=== PATIENT | female | born 1940 | race African-American/Black ===

== ENCOUNTER 2017-06-12 07:06 | Emergency (ER) | payer OTHER ==
[~2017-06-12] VITALS: Ht 165.1 cm; Wt 69.2 kg
[~2017-06-12 07:06] MED LIST: ACAR50TA11 PO; ALPR0.5T6 PO; AMLO10TA2 PO; AMLO5TAB2 PO; AMOX1TAB12 PO; ATOR10TA9 PO; ATOR20TA PO; CARV6.2512 PO; CEFD300C37 PO; CETI10TA24 PO; CYAN10008 PO; DIGO125T PO; DOXY-168 PO; ERGO500017 PO; FAMO10TA77 PO; FERR325T20 PO; FLUTICASONE; FURO20TA3 PO; GLIP5TAB10 PO; HYDR-3138 PO; HYDR25CA PO; HYDR25TA6 PO; INDO25CA PO; LISI40TA PO; LOSA50TA2 PO; METF850T2 PO; METH4TAB PO; METO25TA35 PO; PRED20TA PO; PROAIR; QVAR 40MCG; RANI150T4 PO; SERT50TA5 PO
[2017-06-12] MEDS ORDERED: DIGO125T PO (07:55)
[2017-06-12] MEDS ORDERED: METO25TA35 PO (07:55)
[2017-06-12] MEDS ORDERED: DONE5TAB7 PO (07:55)
[2017-06-12] MEDS ORDERED: FURO20TA3 PO (07:55)
[2017-06-12 08:30] LABS: HEMATOCRIT 32.6 % (34.6-47.8); HEMOGLOBIN 10.6 g/dL (11.7-16.4); WHITE BLOOD COUNT 7.4 x10^3/uL (3.4-10)
[2017-06-12 08:38] LABS: BLOOD UREA NITROGEN 12 mg/dL (7-18)
[2017-06-12 09:27] VITALS: BP 188/102
== END 2017-06-12 09:41 | disposition home or self-care (01) ==
LOC: ED 09:16
DX: J20.9 Acute bronchitis, unspecified (principal); J44.9 Chronic obstructive pulmonary disease, unspecified; K21.9 Gastro-esophageal reflux disease without esophagitis; E11.9 Type 2 diabetes mellitus without complications; I10 Essential (primary) hypertension; E78.5 Hyperlipidemia, unspecified
CPT/HCPCS: 36415; 71020; 80048; 82040; 83605; 83880; 84145; 85025; 93005; 99285

== ENCOUNTER 2018-06-10 16:02 | Inpatient (IN) | payer OTHER ==
[~2018-06-10] VITALS: Ht 175.3 cm; Wt 68.4 kg
[~2018-06-10 16:02] MED LIST changes: +ALLO100T30 PO; +ALPR0.254 PO; +ASPI-496 PO; +CARV25TA12 PO; +CARV6.252 PO; +CYAN100072 PO; -CYAN10008 PO; +DONE5TAB7 PO; -DOXY-168 PO; +DOXY100T10 PO; +FAMO20TA7 PO; +FERR325T18 PO; -FERR325T20 PO; -HYDR-3138 PO; +HYDR-3237 PO; +HYDR-3240 PO; +HYDR-3343 PO; -INDO25CA PO; +INDO25CA5 PO; +ISOS20TA58 PO; +LOSA50TA6 PO; +NITR0.4T SL
[2018-06-10] MEDS ORDERED: SODIUM CHLORIDE 0.9% 1,000 ML IV ONE (16:21)
[2018-06-10 16:30] LABS: BASOPHILS # (AUTO) 0.01 x10^3/uL (0-0.1); BASOPHILS % (AUTO) 0 % (0-1); EOSINOPHILS # (AUTO) 0.16 x10^3/uL (0-0.4); EOSINOPHILS % (AUTO) 2 % (1-7); LYMPHOCYTES # (AUTO) 1.32 x10^3/uL (1-3.4); LYMPHOCYTES % (AUTO) 18 % (22-44); MD NO; MEAN CORPUSCULAR HEMOGLOBIN 30.5 pg (27.0-34.8); MEAN CORPUSCULAR HGB CONC 35.1 g/dL (32.4-35.8); MEAN CORPUSCULAR VOLUME 87.1 fL (80-100); MEAN PLATELET VOLUME 6.7 fL (7.4-10.4); MONOCYTES # (AUTO) 0.56 x10^3/uL (0.2-0.8); MONOCYTES % (AUTO) 8 % (2-9); NEUTROPHILS % (AUTO) 73 % (42-75); PLATELET COUNT 417 x10^3/uL (130-400); RED BLOOD COUNT 3.93 x10^6/uL (3.82-5.3); RED CELL DISTRIBUTION WIDTH 14.2 % (9.6-15.2)
[2018-06-10] MEDS ORDERED: SODIUM CHLORIDE FLUSH 10ML SYR IVF ONE (16:30)
[2018-06-10 16:41] LABS: ALANINE AMINOTRANSFERASE 20 U/L (12-78); ALBUMIN 3.2 g/dL (3.4-5.0); ANION GAP 8 mmol/L (5-15); CALCIUM 8.9 mg/dL (8.5-10.1); CHLORIDE 108 mmol/L (98-107); CREATININE 1.97 mg/dL (0.55-1.02)
[2018-06-10 16:43] LABS: ALKALINE PHOSPHATASE 116 U/L (45-117); BILIRUBIN,TOTAL 0.7 mg/dL (0.2-1.0); TOTAL PROTEIN 7.6 g/dL (6.4-8.2)
[2018-06-10 16:49] LABS: TROPONIN I < 0.015 ng/mL (0.000-0.045)
[2018-06-10 17:17] LABS: MICROSCOPIC INDICATED
[2018-06-10] MEDS ORDERED: DICL100G19 TP (17:19)
[2018-06-10] MEDS ORDERED: POTA99TA24 PO (17:19)
[2018-06-10] MEDS ORDERED: SERT100T5 PO (17:19)
[2018-06-10] MEDS ORDERED: ONDA4TAB13 SL (17:19)
[2018-06-10] MEDS ORDERED: CYAN100014 PO (17:19)
[2018-06-10] MEDS ORDERED: TIOT18CA INH (17:19)
[2018-06-10 17:20] LABS: CULTURE INDICATED? YES
[2018-06-10] MEDS ORDERED: CEFTRIAXONE PMX 1GM/50ML 50 ML ONE (18:16)
[2018-06-10] MEDS ORDERED: CEFTRIAXONE 1,000 MG in SODIUM CHLORIDE 0.9% 50 ML IV ONE (18:30)
[2018-06-10] MEDS ORDERED: POLYETHYLENE GLYCOL 17 GM PACKET PO PRN (19:00)
[2018-06-10] MEDS ORDERED: BISACODYL 10 MG SUPP PR PRN (19:00)
[2018-06-10] MEDS ORDERED: ONDANSETRON 2MG/ML, 2ML IVPush PRN (19:00)
[2018-06-10 19:56] VITALS: BP 202/82
[2018-06-10] MEDS: HEPARIN 5,000 UNITS/ML, 1ML SQ SCH (20:10)
[2018-06-10] MEDS: FAMOTIDINE 20 MG TABLET PO SCH (20:10)
[2018-06-10] MEDS: POTASSIUM CHLORIDE 20 MEQ TAB.ER.PRT PO SCH (20:11)
[2018-06-10] MEDS: LOSARTAN 50MG TABLET PO SCH (20:11)
[2018-06-10] MEDS: ATORVASTATIN 10 MG TABLET PO SCH (20:11)
[2018-06-10] MEDS: AMLODIPINE 5 MG TABLET PO SCH (20:11)
[2018-06-10] MEDS: CARVEDILOL 25 MG TABLET PO SCH (20:11)
[2018-06-10] MEDS: SODIUM CHLORIDE FLUSH 10ML SYR IVF SCH (20:14)
[2018-06-10 20:44] LABS: HEMOGLOBIN A1C 7.2 % (4.2-6.3)
[2018-06-10 21:45] VITALS: BP 170/78
[2018-06-11] VITALS (8 sets, daily range): BP systolic 162–199; BP diastolic 65–89
[2018-06-11] MEDS: hydrALAzine 20 MG/ML, 1ML IV PRN (00:23)
[2018-06-11 06:03] LABS: ALANINE AMINOTRANSFERASE 19 U/L (12-78); ALBUMIN 2.9 g/dL (3.4-5.0); ANION GAP 6 mmol/L (5-15); CHLORIDE 111 mmol/L (98-107); CREATININE 1.84 mg/dL (0.55-1.02)
[2018-06-11 06:04] LABS: ALKALINE PHOSPHATASE 117 U/L (45-117); BILIRUBIN,TOTAL 0.6 mg/dL (0.2-1.0); TOTAL PROTEIN 7.1 g/dL (6.4-8.2)
[2018-06-11 06:12] LABS: BASOPHILS # (AUTO) 0.02 x10^3/uL (0-0.1); BASOPHILS % (AUTO) 0 % (0-1); EOSINOPHILS # (AUTO) 0.14 x10^3/uL (0-0.4); EOSINOPHILS % (AUTO) 2 % (1-7); LYMPHOCYTES # (AUTO) 1.33 x10^3/uL (1-3.4); LYMPHOCYTES % (AUTO) 16 % (22-44); MD NO; MEAN CORPUSCULAR HGB CONC 34.3 g/dL (32.4-35.8); MEAN CORPUSCULAR VOLUME 87.6 fL (80-100); MEAN PLATELET VOLUME 7.3 fL (7.4-10.4); MONOCYTES # (AUTO) 0.69 x10^3/uL (0.2-0.8); MONOCYTES % (AUTO) 8 % (2-9); NEUTROPHILS # (AUTO) 6.22 x10^3/uL (1.8-6.8); NEUTROPHILS % (AUTO) 74 % (42-75); PLATELET COUNT 358 x10^3/uL (130-400); RED BLOOD COUNT 3.64 x10^6/uL (3.82-5.3); RED CELL DISTRIBUTION WIDTH 14.1 % (9.6-15.2)
[2018-06-11] MEDS: FAMOTIDINE 20 MG TABLET PO SCH (08:22)
[2018-06-11] MEDS: DIGOXIN 0.125 MG TABLET PO SCH (08:22)
[2018-06-11] MEDS: CARVEDILOL 25 MG TABLET PO SCH ×2 (08:23→20:15)
[2018-06-11] MEDS: DONEPEZIL 5 MG TABLET PO SCH (08:23)
[2018-06-11] MEDS: FUROSEMIDE 20 MG TABLET PO SCH (08:23)
[2018-06-11] MEDS: AMLODIPINE 5 MG TABLET PO SCH ×2 (08:23→20:15)
[2018-06-11] MEDS: ASPIRIN 81 MG TABLET EC PO SCH (08:23)
[2018-06-11] MEDS: CYANOCOBALAMIN 1,000 MCG TABLET PO SCH (08:23)
[2018-06-11] MEDS: HEPARIN 5,000 UNITS/ML, 1ML SQ SCH ×2 (08:24→16:31)
[2018-06-11] MEDS: LOSARTAN 50MG TABLET PO SCH ×2 (08:39→20:15)
[2018-06-11] MEDS: SERTRALINE 100MG TABLET PO SCH (08:39)
[2018-06-11] MEDS: SENNA/DOCUSATE TABLET PO SCH (08:39)
[2018-06-11] MEDS: POTASSIUM CHLORIDE 20 MEQ TAB.ER.PRT PO SCH ×2 (08:39→20:15)
[2018-06-11] MEDS: SODIUM CHLORIDE FLUSH 10ML SYR IVF SCH ×2 (08:40→20:16)
[2018-06-11 09:12] LABS: MICROSCOPIC INDICATED
[2018-06-11] MEDS: SODIUM CHLORIDE 0.9% 1,000 ML IV SCH (09:56)
[2018-06-11] MEDS: IPRATROPIUM 0.5 MG/2.5 ML INHA NPPB SCH ×2 (10:18→15:00)
[2018-06-11 11:14] LABS: CULTURE INDICATED? NO
[2018-06-11] MEDS: INSULIN LISPRO 100 UNITS/ML, PEN SQ-INSULIN SCH ×3 (12:15→20:16)
[2018-06-11] MEDS: CEFTRIAXONE 1,000 MG in SODIUM CHLORIDE 0.9% 50 ML IV SCH (18:30)
[2018-06-11] MEDS: ATORVASTATIN 10 MG TABLET PO SCH (20:15)
[2018-06-11] MEDS ORDERED: HALOPERIDOL 5 MG TABLET PO PRN (23:00)
[2018-06-12] MEDS: SODIUM CHLORIDE 0.9% 1,000 ML IV SCH (00:03)
[2018-06-12] MEDS: HEPARIN 5,000 UNITS/ML, 1ML SQ SCH ×3 (02:00→16:50)
[2018-06-12 03:00] VITALS: BP 162/81
[2018-06-12 03:30] VITALS: BP 164/74
[2018-06-12 05:54] LABS: ALBUMIN 2.7 g/dL (3.4-5.0); ANION GAP 9 mmol/L (5-15); CALCIUM 8.5 mg/dL (8.5-10.1); CHLORIDE 110 mmol/L (98-107)
[2018-06-12 05:57] LABS: CREATININE 1.72 mg/dL (0.55-1.02)
[2018-06-12] MEDS ORDERED: ALBUTEROL/IPRATROPIUM 2.5MG/0.5MG, 3 ML NPPB PRN (06:00)
[2018-06-12 06:43] VITALS: BP 196/83
[2018-06-12] MEDS: INSULIN LISPRO 100 UNITS/ML, PEN SQ-INSULIN SCH ×4 (07:00→20:44)
[2018-06-12] MEDS: ACETAMINOPHEN 325 MG TABLET PO PRN ×2 (07:56→19:36)
[2018-06-12] MEDS: CYANOCOBALAMIN 1,000 MCG TABLET PO SCH (07:57)
[2018-06-12] MEDS: SODIUM CHLORIDE FLUSH 10ML SYR IVF SCH ×2 (07:57→19:11)
[2018-06-12] MEDS: DIGOXIN 0.125 MG TABLET PO SCH (07:57)
[2018-06-12] MEDS: DONEPEZIL 5 MG TABLET PO SCH (07:57)
[2018-06-12] MEDS: POTASSIUM CHLORIDE 20 MEQ TAB.ER.PRT PO SCH ×2 (07:58→20:12)
[2018-06-12] MEDS: AMLODIPINE 5 MG TABLET PO SCH ×2 (07:58→20:13)
[2018-06-12] MEDS: FUROSEMIDE 20 MG TABLET PO SCH (07:58)
[2018-06-12] MEDS: CARVEDILOL 25 MG TABLET PO SCH ×2 (07:58→20:13)
[2018-06-12] MEDS: ASPIRIN 81 MG TABLET EC PO SCH (07:58)
[2018-06-12] MEDS: FAMOTIDINE 20 MG TABLET PO SCH (07:58)
[2018-06-12] MEDS: SENNA/DOCUSATE TABLET PO SCH (07:59)
[2018-06-12] MEDS: SERTRALINE 100MG TABLET PO SCH (07:59)
[2018-06-12] MEDS: LOSARTAN 50MG TABLET PO SCH ×2 (07:59→20:12)
[2018-06-12 08:12] VITALS: BP 186/76
[2018-06-12] MEDS ORDERED: MAGNESIUM SULFATE PMX 2GM/50ML 50 ML IV ONE (08:30)
[2018-06-12] MEDS: SODIUM BICARBONATE 8.4% 100 MEQ in DEXTROSE 5% 1,000 ML IV SCH (10:28)
[2018-06-12 12:02] VITALS: BP 155/58
[2018-06-12] MEDS: CEFTRIAXONE 1,000 MG in SODIUM CHLORIDE 0.9% 50 ML IV SCH (18:01)
[2018-06-12 18:29] VITALS: BP 177/63
[2018-06-12] MEDS: ATORVASTATIN 10 MG TABLET PO SCH (20:12)
[2018-06-13] MEDS: hydrALAzine 20 MG/ML, 1ML IV PRN (00:47)
[2018-06-13 01:06] VITALS: BP 199/84
[2018-06-13] MEDS: SODIUM BICARBONATE 8.4% 100 MEQ in DEXTROSE 5% 1,000 ML IV SCH (03:45)
[2018-06-13] MEDS: HEPARIN 5,000 UNITS/ML, 1ML SQ SCH ×3 (05:21→12:57)
[2018-06-13 06:32] VITALS: BP 171/74
[2018-06-13] MEDS: INSULIN LISPRO 100 UNITS/ML, PEN SQ-INSULIN SCH ×3 (07:45→15:32)
[2018-06-13] MEDS: AMLODIPINE 5 MG TABLET PO SCH (07:46)
[2018-06-13] MEDS: SODIUM CHLORIDE FLUSH 10ML SYR IVF SCH (07:46)
[2018-06-13] MEDS: CYANOCOBALAMIN 1,000 MCG TABLET PO SCH (07:46)
[2018-06-13] MEDS: DONEPEZIL 5 MG TABLET PO SCH (07:46)
[2018-06-13] MEDS: ASPIRIN 81 MG TABLET EC PO SCH (07:46)
[2018-06-13] MEDS: FAMOTIDINE 20 MG TABLET PO SCH (07:46)
[2018-06-13] MEDS: LOSARTAN 50MG TABLET PO SCH (07:47)
[2018-06-13] MEDS: DIGOXIN 0.125 MG TABLET PO SCH (07:47)
[2018-06-13] MEDS: SENNA/DOCUSATE TABLET PO SCH (07:47)
[2018-06-13] MEDS: SERTRALINE 100MG TABLET PO SCH (07:47)
[2018-06-13] MEDS: FUROSEMIDE 20 MG TABLET PO SCH (07:47)
[2018-06-13] MEDS: CARVEDILOL 25 MG TABLET PO SCH (07:47)
[2018-06-13] MEDS: POTASSIUM CHLORIDE 20 MEQ TAB.ER.PRT PO SCH (07:47)
[2018-06-13 08:41] LABS: BASOPHILS # (AUTO) 0.01 x10^3/uL (0-0.1); BASOPHILS % (AUTO) 0 % (0-1); EOSINOPHILS # (AUTO) 0.07 x10^3/uL (0-0.4); EOSINOPHILS % (AUTO) 1 % (1-7); LYMPHOCYTES # (AUTO) 0.97 x10^3/uL (1-3.4); LYMPHOCYTES % (AUTO) 13 % (22-44); MD NO; MEAN CORPUSCULAR HEMOGLOBIN 29.3 pg (27.0-34.8); MEAN CORPUSCULAR HGB CONC 33.8 g/dL (32.4-35.8); MEAN CORPUSCULAR VOLUME 86.8 fL (80-100); MEAN PLATELET VOLUME 6.7 fL (7.4-10.4); MONOCYTES # (AUTO) 0.48 x10^3/uL (0.2-0.8); MONOCYTES % (AUTO) 7 % (2-9); NEUTROPHILS # (AUTO) 5.95 x10^3/uL (1.8-6.8); NEUTROPHILS % (AUTO) 80 % (42-75); PLATELET COUNT 387 x10^3/uL (130-400); RED BLOOD COUNT 3.84 x10^6/uL (3.82-5.3)
[2018-06-13 08:52] LABS: ANION GAP 8 mmol/L (5-15); CALCIUM 8.8 mg/dL (8.5-10.1); CHLORIDE 103 mmol/L (98-107); CREATININE 1.89 mg/dL (0.55-1.02)
[2018-06-13 12:25] VITALS: BP 165/75
[2018-06-13] MEDS ORDERED: PROPRANOLOL 40 MG TABLET PO SCH (12:30)
[2018-06-13] MEDS ORDERED: PROPRANOLOL 20 MG TABLET ONE (12:44)
== END 2018-06-13 15:43 | disposition home or self-care (01) | DRG 947 ==
LOC: ED 17:47 → EDIP 18:09 → 3NE 19:25 → DCLOUNGE 06-13 15:28
PROVIDERS: ADMIT Hospitalist; ATTEND Hospitalist
PROC: 0T9B70Z Drainage of Bladder with Drainage Device, Via Natural or Artificial Opening (ICD-10-PCS; principal; 2018-06-10)
DX: R53.1 Weakness (principal); G92 Toxic encephalopathy; E44.1 Mild protein-calorie malnutrition; I50.32 Chronic diastolic (congestive) heart failure; R62.7 Adult failure to thrive; D47.3 Essential (hemorrhagic) thrombocythemia; F03.90 Unspecified dementia, unspecified severity, without behavioral disturbance, psychotic disturbance, mood disturbance, and anxiety; E11.21 Type 2 diabetes mellitus with diabetic nephropathy; E11.42 Type 2 diabetes mellitus with diabetic polyneuropathy; D57.3 Sickle-cell trait; E55.9 Vitamin D deficiency, unspecified; E78.5 Hyperlipidemia, unspecified; F41.9 Anxiety disorder, unspecified; I11.0 Hypertensive heart disease with heart failure; J44.9 Chronic obstructive pulmonary disease, unspecified; K21.9 Gastro-esophageal reflux disease without esophagitis; M10.9 Gout, unspecified; Z66 Do not resuscitate; Z88.5 Allergy status to narcotic agent; Z88.6 Allergy status to analgesic agent; Z91.011 Allergy to milk products; Z91.013 Allergy to seafood; Z79.82 Long term (current) use of aspirin; Z79.899 Other long term (current) drug therapy; Z82.3 Family history of stroke; Z68.22 Body mass index [BMI] 22.0-22.9, adult
CPT/HCPCS: 36415; 71045; 80048; 80053; 80162; 81001; 82040; 82962; 83036; 83735; 84100; 84484; 85025; 87086; 93005; 96374; 99285; J0696; J1644; J7070; 92523-GN; J0360; J1815; J3475; J7030

== ENCOUNTER 2018-09-21 12:26 | Inpatient (IN) | payer OTHER ==
[~2018-09-21] VITALS: Ht 165.1 cm; Wt 64.3 kg
[~2018-09-21 12:26] MED LIST changes: +AMLO-150 PO; -AMLO10TA2 PO; +AMLO10TA6 PO; -AMLO5TAB2 PO; +ATOR10TA PO; +CYAN100014 PO; +DICL100G19 TP; +FAMO-79 PO; -LOSA50TA6 PO; +LOSA50TA7 PO; +METF850T10 PO; -METF850T2 PO; +ONDA4TAB13 SL; +POTA20PA25 PO; +POTA99TA24 PO; +SERT100T5 PO; +TIOT18CA INH
[2018-09-21] MEDS ORDERED: ALPR0.5T5 PO (12:56)
[2018-09-21] MEDS ORDERED: FURO20TA3 PO (12:56)
[2018-09-21] MEDS ORDERED: AMLODIPINE 5 MG TABLET PO ONE (13:00)
[2018-09-21] MEDS ORDERED: CARV12.52 PO (13:05)
[2018-09-21] MEDS ORDERED: AMLODIPINE 5 MG TABLET ONE (13:11)
[2018-09-21 13:20] LABS: ALANINE AMINOTRANSFERASE 16 U/L (12-78); ALBUMIN 3.3 g/dL (3.4-5.0); ANION GAP 7 mmol/L (5-15); CALCIUM 8.7 mg/dL (8.5-10.1); CHLORIDE 105 mmol/L (98-107)
[2018-09-21 13:27] LABS: ALKALINE PHOSPHATASE 124 U/L (45-117); BILIRUBIN,TOTAL 0.6 mg/dL (0.2-1.0); CREATININE 2.31 mg/dL (0.55-1.02); TOTAL PROTEIN 7.5 g/dL (6.4-8.2)
[2018-09-21 13:31] LABS: MEAN CORPUSCULAR HEMOGLOBIN 28.1 pg (27.0-34.8); MEAN CORPUSCULAR HGB CONC 33.3 g/dL (32.4-35.8); MEAN CORPUSCULAR VOLUME 84.2 fL (80-100); MEAN PLATELET VOLUME 6.7 fL (7.4-10.4); PLATELET COUNT 399 x10^3/uL (130-400); RED BLOOD COUNT 4.11 x10^6/uL (3.82-5.3); RED CELL DISTRIBUTION WIDTH 15.8 % (9.6-15.2)
[2018-09-21 13:42] LABS: BASOPHILS % (AUTO) 0 % (0-1); EOSINOPHILS % (AUTO) 2 % (1-7); LYMPHOCYTES # (AUTO) 1.22 x10^3/uL (1-3.4); LYMPHOCYTES % (AUTO) 22 % (22-44); MD SCAN; MONOCYTES % (AUTO) 7 % (2-9); NEUTROPHILS # (AUTO) 3.77 x10^3/uL (1.8-6.8); NEUTROPHILS % (AUTO) 69 % (42-75)
[2018-09-21 14:10] LABS: MICROSCOPIC INDICATED
[2018-09-21 14:33] LABS: CULTURE INDICATED? NO
[2018-09-21] MEDS ORDERED: SODIUM CHLORIDE 0.9% 1,000 ML IV SCH (16:45)
[2018-09-21] MEDS ORDERED: ONDANSETRON ODT 4 MG PO PRN (17:00)
[2018-09-21] MEDS ORDERED: ONDANSETRON 2MG/ML, 2ML IVPush PRN (17:00)
[2018-09-21] MEDS ORDERED: ONDANSETRON ODT 4 MG SL PRN (17:00)
[2018-09-21 17:03] LABS: CREATININE,URINE RANDOM 97.1 mg/dL
[2018-09-21 17:23] LABS: HEMOGLOBIN A1C 6.6 % (4.2-6.3)
[2018-09-21 17:54] VITALS: BP 200/74
[2018-09-21] MEDS ORDERED: IPRATROPIUM 0.5 MG/2.5 ML INHA NPPB SCH (18:30)
[2018-09-21] MEDS: METHOCARBAMOL 500 MG TABLET PO PRN (18:34)
[2018-09-21] MEDS: hydrALAzine 20 MG/ML, 1ML IV PRN (18:34)
[2018-09-21 19:21] VITALS: BP 170/51
[2018-09-21] MEDS: DICLOFENAC SODIUM 2 GM TP SCH (19:51)
[2018-09-21] MEDS: FAMOTIDINE 20 MG TABLET PO SCH (20:05)
[2018-09-21] MEDS: ATORVASTATIN 10 MG TABLET PO SCH (20:05)
[2018-09-21] MEDS: CARVEDILOL 12.5 MG TABLET HOMEMEDPO SCH (20:05)
[2018-09-21] MEDS: IPRATROPIUM 0.5 MG/2.5 ML INHA NPPB SCH (21:36)
[2018-09-21] MEDS: HEPARIN 5,000 UNITS/ML, 1ML SQ SCH (21:50)
[2018-09-22 01:18] VITALS: BP 176/84
[2018-09-22] MEDS: IPRATROPIUM 0.5 MG/2.5 ML INHA NPPB SCH ×4 (02:16→21:00)
[2018-09-22] MEDS: METHOCARBAMOL 500 MG TABLET PO PRN (03:06)
[2018-09-22 04:41] LABS: BASOPHILS # (AUTO) 0.01 x10^3/uL (0-0.1); BASOPHILS % (AUTO) 0 % (0-1); EOSINOPHILS # (AUTO) 0.13 x10^3/uL (0-0.4); EOSINOPHILS % (AUTO) 2 % (1-7); LYMPHOCYTES # (AUTO) 1.41 x10^3/uL (1-3.4); LYMPHOCYTES % (AUTO) 23 % (22-44); MD NO; MEAN CORPUSCULAR HEMOGLOBIN 28.2 pg (27.0-34.8); MEAN CORPUSCULAR HGB CONC 32.7 g/dL (32.4-35.8); MEAN CORPUSCULAR VOLUME 86.3 fL (80-100); MEAN PLATELET VOLUME 6.9 fL (7.4-10.4); MONOCYTES # (AUTO) 0.46 x10^3/uL (0.2-0.8); MONOCYTES % (AUTO) 7 % (2-9); NEUTROPHILS # (AUTO) 4.25 x10^3/uL (1.8-6.8); NEUTROPHILS % (AUTO) 68 % (42-75); PLATELET COUNT 356 x10^3/uL (130-400); RED BLOOD COUNT 4.04 x10^6/uL (3.82-5.3)
[2018-09-22 04:46] LABS: ALBUMIN 3.1 g/dL (3.4-5.0); ANION GAP 9 mmol/L (5-15); CALCIUM 8.1 mg/dL (8.5-10.1); CHLORIDE 107 mmol/L (98-107)
[2018-09-22 04:55] LABS: ALANINE AMINOTRANSFERASE 15 U/L (12-78); ALKALINE PHOSPHATASE 104 U/L (45-117); BILIRUBIN,TOTAL 0.7 mg/dL (0.2-1.0); CHOL/HDL RATIO 4.4; CHOLESTEROL, TOTAL 155 mg/dL (140-239); CREATININE 2.15 mg/dL (0.55-1.02); HDL CHOL % 23 % (28-40); HDL CHOLESTEROL (DIRECT) 35 mg/dL (40-60); LDL CHOLESTEROL,CALCULATED 65 mg/dL (54-169); LDL/HDL RATIO 1.9 (0.5-3.0); TOTAL PROTEIN 6.9 g/dL (6.4-8.2); TRIGLYCERIDES 274 mg/dL (50-200); VLDL CHOLESTEROL 55 mg/dL (0-25)
[2018-09-22] MEDS: HEPARIN 5,000 UNITS/ML, 1ML SQ SCH ×3 (06:05→19:43)
[2018-09-22 07:06] VITALS: BP 187/78
[2018-09-22] MEDS: POTASSIUM CHLORIDE 20 MEQ TAB.ER.PRT PO SCH (07:56)
[2018-09-22] MEDS: DONEPEZIL 5 MG TABLET PO SCH (07:57)
[2018-09-22] MEDS: CYANOCOBALAMIN 1,000 MCG TABLET PO SCH (07:57)
[2018-09-22] MEDS: CARVEDILOL 12.5 MG TABLET HOMEMEDPO SCH ×2 (07:57→19:42)
[2018-09-22] MEDS: DIGOXIN 0.125 MG TABLET PO SCH (07:57)
[2018-09-22] MEDS: AMLODIPINE 5 MG TABLET PO SCH (07:57)
[2018-09-22] MEDS: ASPIRIN 81 MG TABLET EC PO SCH (07:57)
[2018-09-22] MEDS: SERTRALINE 100MG TABLET PO SCH (07:57)
[2018-09-22] MEDS: FAMOTIDINE 20 MG TABLET PO SCH (07:58)
[2018-09-22] MEDS ORDERED: MAGNESIUM SULFATE PMX 2GM/50ML 50 ML IV ONE (09:00)
[2018-09-22] MEDS: DICLOFENAC SODIUM 2 GM TP SCH ×3 (09:00→19:55)
[2018-09-22 15:54] VITALS: BP 164/78
[2018-09-22 18:49] VITALS: BP 175/75
[2018-09-22] MEDS: ATORVASTATIN 10 MG TABLET PO SCH (19:41)
[2018-09-23 01:59] VITALS: BP 193/76
[2018-09-23] MEDS: IPRATROPIUM 0.5 MG/2.5 ML INHA NPPB SCH ×2 (02:16→09:45)
[2018-09-23 04:58] VITALS: BP 188/79
[2018-09-23] MEDS: hydrALAzine 20 MG/ML, 1ML IV PRN (04:59)
[2018-09-23] MEDS: HEPARIN 5,000 UNITS/ML, 1ML SQ SCH ×3 (05:00→20:11)
[2018-09-23] MEDS: METHOCARBAMOL 500 MG TABLET PO PRN (05:00)
[2018-09-23 05:58] VITALS: BP 169/73
[2018-09-23 07:05] VITALS: BP 175/66
[2018-09-23] MEDS: DONEPEZIL 5 MG TABLET PO SCH (08:02)
[2018-09-23] MEDS: CALCIUM/VITAMIN D3 250-125 TABLET PO SCH (08:02)
[2018-09-23] MEDS: DIGOXIN 0.125 MG TABLET PO SCH (08:02)
[2018-09-23] MEDS: FAMOTIDINE 20 MG TABLET PO SCH (08:02)
[2018-09-23] MEDS: CYANOCOBALAMIN 1,000 MCG TABLET PO SCH (08:02)
[2018-09-23] MEDS: POTASSIUM CHLORIDE 20 MEQ TAB.ER.PRT PO SCH (08:02)
[2018-09-23] MEDS: CARVEDILOL 12.5 MG TABLET HOMEMEDPO SCH ×2 (08:02→20:11)
[2018-09-23] MEDS: SERTRALINE 100MG TABLET PO SCH (08:02)
[2018-09-23] MEDS: DICLOFENAC SODIUM 2 GM TP SCH ×3 (08:03→20:12)
[2018-09-23] MEDS: AMLODIPINE 5 MG TABLET PO SCH (08:03)
[2018-09-23] MEDS: ASPIRIN 81 MG TABLET EC PO SCH (08:03)
[2018-09-23] MEDS: LOSARTAN 50MG TABLET PO SCH (08:03)
[2018-09-23] MEDS ORDERED: FURO20TA3 PO ×2 (12:49)
[2018-09-23 13:10] VITALS: BP 172/68
[2018-09-23 19:14] VITALS: BP 164/74
[2018-09-23] MEDS: ATORVASTATIN 10 MG TABLET PO SCH (20:11)
[2018-09-23] MEDS: ACETAMINOPHEN 325 MG TABLET PO PRN (20:16)
[2018-09-24 00:56] VITALS: BP 186/71
[2018-09-24] MEDS: hydrALAzine 20 MG/ML, 1ML IV PRN (01:08)
[2018-09-24 02:45] VITALS: BP 168/69
[2018-09-24] MEDS: HEPARIN 5,000 UNITS/ML, 1ML SQ SCH ×3 (05:58→21:43)
[2018-09-24] MEDS: ACETAMINOPHEN 325 MG TABLET PO PRN (05:59)
[2018-09-24 07:10] VITALS: BP 173/69
[2018-09-24] MEDS: FAMOTIDINE 20 MG TABLET PO SCH (08:56)
[2018-09-24] MEDS: CARVEDILOL 12.5 MG TABLET HOMEMEDPO SCH ×2 (08:56→21:42)
[2018-09-24] MEDS: DONEPEZIL 5 MG TABLET PO SCH (08:56)
[2018-09-24] MEDS: AMLODIPINE 5 MG TABLET PO SCH (08:56)
[2018-09-24] MEDS: LOSARTAN 50MG TABLET PO SCH (08:56)
[2018-09-24] MEDS: CYANOCOBALAMIN 1,000 MCG TABLET PO SCH (08:56)
[2018-09-24] MEDS: ASPIRIN 81 MG TABLET EC PO SCH (08:56)
[2018-09-24] MEDS: SERTRALINE 100MG TABLET PO SCH (08:56)
[2018-09-24] MEDS: CALCIUM/VITAMIN D3 250-125 TABLET PO SCH (08:56)
[2018-09-24] MEDS: POTASSIUM CHLORIDE 20 MEQ TAB.ER.PRT PO SCH (08:56)
[2018-09-24] MEDS: DIGOXIN 0.125 MG TABLET PO SCH (08:57)
[2018-09-24] MEDS: DICLOFENAC SODIUM 2 GM TP SCH ×3 (08:57→21:00)
[2018-09-24 14:00] VITALS: BP 171/67
[2018-09-24 19:45] VITALS: BP 164/80
[2018-09-24] MEDS: ATORVASTATIN 10 MG TABLET PO SCH (21:42)
[2018-09-25 01:45] VITALS: BP 151/62
[2018-09-25 04:57] LABS: ANION GAP 9 mmol/L (5-15); CALCIUM 8.4 mg/dL (8.5-10.1); CHLORIDE 108 mmol/L (98-107); CREATININE 2.22 mg/dL (0.55-1.02)
[2018-09-25] MEDS: HEPARIN 5,000 UNITS/ML, 1ML SQ SCH ×3 (06:00→21:58)
[2018-09-25 06:58] VITALS: BP 163/69
[2018-09-25] MEDS: ACETAMINOPHEN 325 MG TABLET PO PRN (08:27)
[2018-09-25] MEDS: ASPIRIN 81 MG TABLET EC PO SCH (08:27)
[2018-09-25] MEDS: CALCIUM/VITAMIN D3 250-125 TABLET PO SCH (08:27)
[2018-09-25] MEDS: LOSARTAN 50MG TABLET PO SCH (08:27)
[2018-09-25] MEDS: POTASSIUM CHLORIDE 20 MEQ TAB.ER.PRT PO SCH (08:28)
[2018-09-25] MEDS: DIGOXIN 0.125 MG TABLET PO SCH (08:28)
[2018-09-25] MEDS: SERTRALINE 100MG TABLET PO SCH (08:28)
[2018-09-25] MEDS: CYANOCOBALAMIN 1,000 MCG TABLET PO SCH (08:28)
[2018-09-25] MEDS: CARVEDILOL 12.5 MG TABLET HOMEMEDPO SCH ×2 (08:28→21:58)
[2018-09-25] MEDS: DONEPEZIL 5 MG TABLET PO SCH (08:28)
[2018-09-25] MEDS: FAMOTIDINE 20 MG TABLET PO SCH (08:28)
[2018-09-25] MEDS: AMLODIPINE 5 MG TABLET PO SCH (08:28)
[2018-09-25] MEDS: DICLOFENAC SODIUM 2 GM TP SCH ×3 (08:33→21:00)
[2018-09-25] MEDS ORDERED: FUROSEMIDE 40 MG TABLET PO SCH (09:00)
[2018-09-25] MEDS ORDERED: AMLODIPINE 5 MG TABLET PO ONE (12:30)
[2018-09-25 12:35] VITALS: BP 175/98
[2018-09-25] MEDS: METHOCARBAMOL 500 MG TABLET PO PRN (15:15)
[2018-09-25 19:39] VITALS: BP 149/73
[2018-09-25] MEDS: ATORVASTATIN 10 MG TABLET PO SCH (21:58)
[2018-09-26 01:06] VITALS: BP 150/73
[2018-09-26 05:11] LABS: ANION GAP 8 mmol/L (5-15); CALCIUM 8.8 mg/dL (8.5-10.1); CHLORIDE 107 mmol/L (98-107); CREATININE 2.39 mg/dL (0.55-1.02)
[2018-09-26] MEDS: HEPARIN 5,000 UNITS/ML, 1ML SQ SCH ×2 (06:03→14:00)
[2018-09-26 07:11] VITALS: BP 163/76
[2018-09-26] MEDS ORDERED: SERTRALINE 50MG TABLET PO SCH (09:00)
[2018-09-26] MEDS: DICLOFENAC SODIUM 2 GM TP SCH ×2 (09:00→15:59)
[2018-09-26] MEDS ORDERED: AMLODIPINE 10 MG TAB PO SCH (09:00)
[2018-09-26] MEDS: POTASSIUM CHLORIDE 20 MEQ TAB.ER.PRT PO SCH (09:38)
[2018-09-26] MEDS: LOSARTAN 50MG TABLET PO SCH (09:38)
[2018-09-26] MEDS: DONEPEZIL 5 MG TABLET PO SCH (09:38)
[2018-09-26] MEDS: DIGOXIN 0.125 MG TABLET PO SCH (09:38)
[2018-09-26] MEDS: CYANOCOBALAMIN 1,000 MCG TABLET PO SCH (09:38)
[2018-09-26] MEDS: CALCIUM/VITAMIN D3 250-125 TABLET PO SCH (09:38)
[2018-09-26] MEDS: METHOCARBAMOL 500 MG TABLET PO PRN (09:39)
[2018-09-26] MEDS: CARVEDILOL 12.5 MG TABLET HOMEMEDPO SCH (09:39)
[2018-09-26] MEDS: ASPIRIN 81 MG TABLET EC PO SCH (09:39)
[2018-09-26] MEDS: FAMOTIDINE 20 MG TABLET PO SCH (09:39)
[2018-09-26 12:39] VITALS: BP 144/75
[2018-09-26] MEDS ORDERED: AMLO10TA6 PO (16:30)
[2018-09-26] MEDS ORDERED: SERT50TA5 PO (17:50)
== END 2018-09-26 17:45 | disposition home or self-care (01) | DRG 682 ==
LOC: ED 12:47 → EDIP 16:02 → 3NE 17:37
PROVIDERS: ADMIT Hospitalist; ATTEND Hospitalist
DX: N17.0 Acute kidney failure with tubular necrosis (principal); R53.2 Functional quadriplegia; I13.0 Hypertensive heart and chronic kidney disease with heart failure and stage 1 through stage 4 chronic kidney disease, or unspecified chronic kidney disease; I50.32 Chronic diastolic (congestive) heart failure; R29.6 Repeated falls; R62.7 Adult failure to thrive; I45.10 Unspecified right bundle-branch block; J44.9 Chronic obstructive pulmonary disease, unspecified; M10.9 Gout, unspecified; E11.22 Type 2 diabetes mellitus with diabetic chronic kidney disease; I05.0 Rheumatic mitral stenosis; D57.3 Sickle-cell trait; E78.5 Hyperlipidemia, unspecified; F03.90 Unspecified dementia, unspecified severity, without behavioral disturbance, psychotic disturbance, mood disturbance, and anxiety; F41.9 Anxiety disorder, unspecified; K21.9 Gastro-esophageal reflux disease without esophagitis; N18.3 Chronic kidney disease, stage 3 (moderate); N39.3 Stress incontinence (female) (male); Z82.3 Family history of stroke; Z86.73 Personal history of transient ischemic attack (TIA), and cerebral infarction without residual deficits; Z87.01 Personal history of pneumonia (recurrent); Z87.440 Personal history of urinary (tract) infections; Z79.899 Other long term (current) drug therapy; Z79.82 Long term (current) use of aspirin
CPT/HCPCS: 36415; 70450; 80048; 80053; 80061; 80162; 81001; 82436; 82570; 83036; 83735; 84100; 84133; 84156; 84300; 84443; 85025; 93005; 94640; 99285; G0378; J1644; J7644; Q0162; 92523-GN; J0360; J3475; J7030

== ENCOUNTER 2018-12-02 10:46 | Inpatient (IN) | payer MEDICARE, OTHER ==
[~2018-12-02] VITALS: Ht 165.1 cm; Wt 65.3 kg
[~2018-12-02 10:46] MED LIST changes: +ACET325T14 PO; +ALPR0.5T5 PO; -AMLO10TA6 PO; +AMLO10TA8 PO; +CARV12.52 PO; +CLON1PAT3 TD; +DOCU-131 PO; +HEPA50002 SQ; +INSU100I11 SQ-INSULIN; +LOSA50TA14 PO; -LOSA50TA7 PO; +MELA5TAB19 PO; +NIFE60TA13 PO; +ONDA4TAB13 PO; +OXYC5SOL8 PO; +PANT40TA5 PO; +QUET25TA PO; +SERT100T32 PO; -SERT100T5 PO; +SERT50TA28 PO; -SERT50TA5 PO; +SIME80TA16 PO
[2018-12-02] MEDS ORDERED: SODIUM CHLORIDE FLUSH 10ML SYR IVF ONE (11:00)
--- NOTE | 2018-12-02 11:07 | NUR ---
PT BIB BY ALEXIS LEONARD CODEN FOR HIGH POTASSIUM. PT PLACED IN ROOM AND PLACED ON BP, CARDIAC AND CONT. PULSE OXIMETER. ASSESSMENT COMPLETED. EKG DONE AND PRESENTED TO MD. ASSESSMENT COMPLETED. MD AT BEDSIDE AND ORDERS RECEIVED. CALL LIGHT IN REACH AND 2 SIDE RAILS UP.
[2018-12-02] MEDS ORDERED: SERT50TA28 PO (11:57)
[2018-12-02 12:18] LABS: ALANINE AMINOTRANSFERASE 15 U/L (12-78); ALBUMIN 3.3 g/dL (3.4-5.0); ANION GAP 7 mmol/L (5-15); CALCIUM 8.9 mg/dL (8.5-10.1); CHLORIDE 108 mmol/L (98-107); CREATININE 2.97 mg/dL (0.55-1.02)
[2018-12-02 12:19] LABS: MEAN CORPUSCULAR HEMOGLOBIN 29.9 pg (27.0-34.8); MEAN CORPUSCULAR HGB CONC 32.8 g/dL (32.4-35.8); MEAN CORPUSCULAR VOLUME 91.3 fL (80-100); MEAN PLATELET VOLUME 7.2 fL (7.4-10.4); PLATELET COUNT 515 x10^3/uL (130-400); RED BLOOD COUNT 3.33 x10^6/uL (3.82-5.3); RED CELL DISTRIBUTION WIDTH 18.4 % (9.6-15.2)
[2018-12-02 12:20] LABS: ALKALINE PHOSPHATASE 129 U/L (45-117); BILIRUBIN,TOTAL 0.4 mg/dL (0.2-1.0); TOTAL PROTEIN 7.7 g/dL (6.4-8.2)
[2018-12-02] MEDS ORDERED: SODIUM CHLORIDE 0.9%, 500ML IVBOLUS ONE (12:30)
--- NOTE | 2018-12-02 12:30 | NUR ---
PT AWAITING LAB
[2018-12-02 12:56] LABS: BASOPHILS % (AUTO) 0 % (0-1); EOSINOPHILS # (AUTO) 0.15 x10^3/uL (0-0.4); EOSINOPHILS % (AUTO) 2 % (1-7); LYMPHOCYTES # (AUTO) 1.34 x10^3/uL (1-3.4); LYMPHOCYTES % (AUTO) 19 % (22-44); MD SCAN; MONOCYTES # (AUTO) 0.57 x10^3/uL (0.2-0.8); MONOCYTES % (AUTO) 8 % (2-9); NEUTROPHILS # (AUTO) 5.11 x10^3/uL (1.8-6.8); NEUTROPHILS % (AUTO) 71 % (42-75)
--- NOTE | 2018-12-02 13:25 | NUR ---
PT PUT ON BEDPAN AND URINATED IN HURD
[2018-12-02] MEDS ORDERED: BISACODYL 10 MG SUPP PR PRN (13:30)
[2018-12-02] MEDS ORDERED: LIDODERM 5% PATCH TD PRN (13:30)
[2018-12-02] MEDS ORDERED: TRAZODONE 50MG TABLET PO PRN (13:30)
[2018-12-02] MEDS ORDERED: DOCUSATE 100 MG CAPSULE PO PRN (13:30)
[2018-12-02] MEDS ORDERED: LABETALOL 5MG/ML, 20ML IVPush PRN (13:30)
[2018-12-02] MEDS ORDERED: hydrALAzine 20 MG/ML, 1ML IVPush PRN (13:30)
[2018-12-02] MEDS ORDERED: SIMETHICONE 80 MG CHEW TAB PO PRN (13:30)
[2018-12-02] MEDS ORDERED: POLYETHYLENE GLYCOL 17 GM PACKET PO PRN (13:30)
[2018-12-02 13:33] LABS: HCT (SEDRATE) 30.4 % (34.6-47.8)
[2018-12-02 13:44] LABS: FREE T4 (FREE THYROXINE) 0.88 ng/dL (0.76-1.46); THYROID STIMULATING HORMONE 1.09 mIU/L (0.358-3.740)
--- NOTE | 2018-12-02 14:25 | NUR ---
report given to ronaldo velásquez. pt then transferred to floor .
[2018-12-02 15:11] VITALS: BP 152/63
[2018-12-02] MEDS: SODIUM CHLORIDE 0.9% 1,000 ML IV SCH (15:40)
[2018-12-02] MEDS: ONDANSETRON ODT 4 MG PO PRN (15:51)
[2018-12-02] MEDS: ERGOCALCIFEROL 50,000 UNIT CAPSULE PO SCH (15:51)
[2018-12-02] MEDS: INSULIN LISPRO 100 UNITS/ML, PEN SQ-INSULIN SCH ×2 (16:00→22:20)
[2018-12-02 18:35] VITALS: BP 143/62
[2018-12-02] MEDS: OXYcodone 5 MG/5 ML ORAL.SOL UDC PO PRN (20:00)
[2018-12-02] MEDS: ALLOPURINOL 100 MG TABLET PO SCH (21:17)
[2018-12-02] MEDS: DOCUSATE 100 MG CAPSULE PO SCH (21:17)
[2018-12-02] MEDS: MELATONIN 5 MG TABLET PO SCH (21:17)
[2018-12-02] MEDS: ATORVASTATIN 10 MG TABLET PO SCH (21:17)
[2018-12-02] MEDS: PANTOPROZOLE 40MG TABLET PO SCH (21:17)
[2018-12-02] MEDS ORDERED: cloniDINE 0.3MG PATCH TD SCH (22:00)
[2018-12-02] MEDS: CLONIDINE MC SCH ×2 (22:30→23:00)
[2018-12-02] MEDS: CARVEDILOL 25 MG TABLET PO SCH (22:30)
[2018-12-03 00:46] VITALS: BP 149/72
[2018-12-03] MEDS: SODIUM CHLORIDE 0.9% 1,000 ML IV SCH ×2 (01:57→10:10)
[2018-12-03] MEDS: OXYcodone 5 MG/5 ML ORAL.SOL UDC PO PRN (03:48)
[2018-12-03] MEDS: ONDANSETRON 4 MG TABLET PO PRN ×3 (03:48→21:19)
[2018-12-03] MEDS: PANTOPROZOLE 40MG TABLET PO SCH ×2 (06:01→21:43)
[2018-12-03] MEDS: CARVEDILOL 25 MG TABLET PO SCH ×2 (06:01→18:18)
[2018-12-03 06:49] LABS: BASOPHILS % (AUTO) 0 % (0-1); EOSINOPHILS % (AUTO) 2 % (1-7); LYMPHOCYTES # (AUTO) 1.36 x10^3/uL (1-3.4); LYMPHOCYTES % (AUTO) 26 % (22-44); MD NO; MEAN CORPUSCULAR HEMOGLOBIN 29.6 pg (27.0-34.8); MEAN CORPUSCULAR HGB CONC 32.5 g/dL (32.4-35.8); MEAN CORPUSCULAR VOLUME 91.2 fL (80-100); MEAN PLATELET VOLUME 7.5 fL (7.4-10.4); MONOCYTES # (AUTO) 0.45 x10^3/uL (0.2-0.8); MONOCYTES % (AUTO) 9 % (2-9); NEUTROPHILS # (AUTO) 3.28 x10^3/uL (1.8-6.8); NEUTROPHILS % (AUTO) 63 % (42-75); PLATELET COUNT 416 x10^3/uL (130-400); RED BLOOD COUNT 2.82 x10^6/uL (3.82-5.3); RED CELL DISTRIBUTION WIDTH 18.7 % (9.6-15.2)
[2018-12-03 06:55] LABS: CHLORIDE 111 mmol/L (98-107)
[2018-12-03 07:00] LABS: ANION GAP 8 mmol/L (5-15); CALCIUM 8.3 mg/dL (8.5-10.1); CREATININE 2.19 mg/dL (0.55-1.02)
[2018-12-03] MEDS: INSULIN LISPRO 100 UNITS/ML, PEN SQ-INSULIN SCH ×4 (07:00→21:00)
[2018-12-03] MEDS: CLONIDINE MC SCH ×2 (07:00→15:00)
[2018-12-03 07:05] VITALS: BP 156/71
[2018-12-03] MEDS ORDERED: MAGNESIUM SULFATE PMX 2GM/50ML 50 ML IV ONE (08:00)
[2018-12-03] MEDS: niFEDipine ER 60 MG TABLET.ER PO SCH (08:42)
[2018-12-03] MEDS: ASPIRIN 81 MG TABLET EC PO SCH (08:43)
[2018-12-03] MEDS: DOCUSATE 100 MG CAPSULE PO SCH ×2 (08:43→21:20)
[2018-12-03] MEDS: ALLOPURINOL 100 MG TABLET PO SCH ×2 (08:44→21:19)
[2018-12-03] MEDS: SERTRALINE 50MG TABLET PO SCH (08:44)
[2018-12-03] MEDS: CYANOCOBALAMIN 1,000 MCG TABLET PO SCH (08:44)
[2018-12-03] MEDS: AMLODIPINE 10 MG TAB PO SCH (08:44)
[2018-12-03] MEDS: DONEPEZIL 5 MG TABLET PO SCH (08:44)
[2018-12-03] MEDS: ONDANSETRON 2MG/ML, 2ML IVPush PRN (10:09)
[2018-12-03 14:25] VITALS: BP 118/62
[2018-12-03 19:06] VITALS: BP 133/59
[2018-12-03] MEDS: MELATONIN 5 MG TABLET PO SCH (21:19)
[2018-12-03] MEDS: ATORVASTATIN 10 MG TABLET PO SCH (21:19)
[2018-12-04] MEDS: OXYcodone 5 MG/5 ML ORAL.SOL UDC PO PRN ×2 (01:15→11:35)
[2018-12-04 01:21] VITALS: BP 156/62
[2018-12-04] MEDS: SODIUM CHLORIDE 0.9% 1,000 ML IV SCH ×3 (05:12→16:05)
[2018-12-04 05:22] LABS: ANION GAP 5 mmol/L (5-15); CALCIUM 8.4 mg/dL (8.5-10.1); CHLORIDE 111 mmol/L (98-107); CREATININE 2.35 mg/dL (0.55-1.02)
[2018-12-04 05:36] LABS: BASOPHILS % (AUTO) 0 % (0-1); EOSINOPHILS # (AUTO) 0.17 x10^3/uL (0-0.4); EOSINOPHILS % (AUTO) 3 % (1-7); LYMPHOCYTES # (AUTO) 1.46 x10^3/uL (1-3.4); LYMPHOCYTES % (AUTO) 25 % (22-44); MD NO; MEAN CORPUSCULAR HEMOGLOBIN 30.2 pg (27.0-34.8); MEAN CORPUSCULAR HGB CONC 32.8 g/dL (32.4-35.8); MEAN CORPUSCULAR VOLUME 92.1 fL (80-100); MEAN PLATELET VOLUME 7.4 fL (7.4-10.4); MONOCYTES # (AUTO) 0.58 x10^3/uL (0.2-0.8); MONOCYTES % (AUTO) 10 % (2-9); NEUTROPHILS # (AUTO) 3.57 x10^3/uL (1.8-6.8); NEUTROPHILS % (AUTO) 62 % (42-75); PLATELET COUNT 395 x10^3/uL (130-400); RED BLOOD COUNT 2.75 x10^6/uL (3.82-5.3); RED CELL DISTRIBUTION WIDTH 18.5 % (9.6-15.2)
[2018-12-04] MEDS: PANTOPROZOLE 40MG TABLET PO SCH ×2 (06:25→21:38)
[2018-12-04] MEDS: CARVEDILOL 25 MG TABLET PO SCH ×2 (06:25→16:58)
[2018-12-04] MEDS: INSULIN LISPRO 100 UNITS/ML, PEN SQ-INSULIN SCH ×4 (07:00→21:00)
[2018-12-04 07:05] VITALS: BP 176/68
[2018-12-04] MEDS: DONEPEZIL 5 MG TABLET PO SCH (08:02)
[2018-12-04] MEDS: DOCUSATE 100 MG CAPSULE PO SCH ×2 (08:02→21:35)
[2018-12-04] MEDS: ASPIRIN 81 MG TABLET EC PO SCH (08:02)
[2018-12-04] MEDS: niFEDipine ER 60 MG TABLET.ER PO SCH (08:02)
[2018-12-04] MEDS: CYANOCOBALAMIN 1,000 MCG TABLET PO SCH (08:03)
[2018-12-04] MEDS: AMLODIPINE 10 MG TAB PO SCH (08:03)
[2018-12-04] MEDS: ALLOPURINOL 100 MG TABLET PO SCH ×2 (08:03→21:35)
[2018-12-04] MEDS: SERTRALINE 50MG TABLET PO SCH (08:09)
[2018-12-04] MEDS ORDERED: SODIUM POLYSTYRENE SULFONATE ORAL SUSP PO ONE (12:00)
[2018-12-04 13:40] VITALS: BP 117/54
[2018-12-04] MEDS: ACETAMINOPHEN 325 MG TABLET PO PRN (15:50)
[2018-12-04 19:13] VITALS: BP 137/69
[2018-12-04] MEDS: ATORVASTATIN 10 MG TABLET PO SCH (21:35)
[2018-12-04] MEDS: MELATONIN 5 MG TABLET PO SCH (21:35)
[2018-12-05] MEDS: SODIUM CHLORIDE 0.9% 1,000 ML IV SCH ×3 (01:47→22:09)
[2018-12-05 02:18] VITALS: BP 151/54
[2018-12-05 04:42] LABS: BASOPHILS # (AUTO) 0.01 x10^3/uL (0-0.1); BASOPHILS % (AUTO) 0 % (0-1); EOSINOPHILS # (AUTO) 0.17 x10^3/uL (0-0.4); EOSINOPHILS % (AUTO) 3 % (1-7); LYMPHOCYTES % (AUTO) 21 % (22-44); MD NO; MEAN CORPUSCULAR HEMOGLOBIN 30.1 pg (27.0-34.8); MEAN CORPUSCULAR HGB CONC 33.1 g/dL (32.4-35.8); MEAN PLATELET VOLUME 7.4 fL (7.4-10.4); MONOCYTES # (AUTO) 0.48 x10^3/uL (0.2-0.8); MONOCYTES % (AUTO) 9 % (2-9); NEUTROPHILS # (AUTO) 3.83 x10^3/uL (1.8-6.8); NEUTROPHILS % (AUTO) 67 % (42-75); PLATELET COUNT 375 x10^3/uL (130-400); RED BLOOD COUNT 2.77 x10^6/uL (3.82-5.3); RED CELL DISTRIBUTION WIDTH 18.1 % (9.6-15.2)
[2018-12-05 04:56] LABS: ANION GAP 6 mmol/L (5-15); CALCIUM 8.3 mg/dL (8.5-10.1); CHLORIDE 114 mmol/L (98-107); CREATININE 2.11 mg/dL (0.55-1.02)
[2018-12-05] MEDS: CARVEDILOL 25 MG TABLET PO SCH ×2 (05:59→18:13)
[2018-12-05] MEDS: PANTOPROZOLE 40MG TABLET PO SCH ×2 (05:59→19:49)
[2018-12-05] MEDS: OXYcodone 5 MG/5 ML ORAL.SOL UDC PO PRN ×2 (05:59→11:32)
[2018-12-05 07:00] VITALS: BP 180/69
[2018-12-05] MEDS: INSULIN LISPRO 100 UNITS/ML, PEN SQ-INSULIN SCH ×4 (07:00→19:49)
[2018-12-05] MEDS: ALLOPURINOL 100 MG TABLET PO SCH ×2 (08:39→19:49)
[2018-12-05] MEDS: niFEDipine ER 60 MG TABLET.ER PO SCH (08:39)
[2018-12-05] MEDS: ASPIRIN 81 MG TABLET EC PO SCH (08:39)
[2018-12-05] MEDS: DONEPEZIL 5 MG TABLET PO SCH (08:39)
[2018-12-05] MEDS: SERTRALINE 50MG TABLET PO SCH (08:39)
[2018-12-05] MEDS: AMLODIPINE 10 MG TAB PO SCH (08:39)
[2018-12-05] MEDS: DOCUSATE 100 MG CAPSULE PO SCH ×2 (08:39→19:49)
[2018-12-05] MEDS: CYANOCOBALAMIN 1,000 MCG TABLET PO SCH (08:39)
[2018-12-05 08:41] VITALS: BP 151/70
[2018-12-05 12:26] VITALS: BP 115/46
[2018-12-05 14:20] VITALS: BP 124/61
[2018-12-05 19:33] VITALS: BP 151/68
[2018-12-05] MEDS: ATORVASTATIN 10 MG TABLET PO SCH (19:49)
[2018-12-05] MEDS: MELATONIN 5 MG TABLET PO SCH (19:49)
[2018-12-06 01:17] VITALS: BP 160/71
[2018-12-06 04:40] LABS: BASOPHILS % (AUTO) 0 % (0-1); EOSINOPHILS # (AUTO) 0.15 x10^3/uL (0-0.4); EOSINOPHILS % (AUTO) 3 % (1-7); LYMPHOCYTES # (AUTO) 0.94 x10^3/uL (1-3.4); LYMPHOCYTES % (AUTO) 16 % (22-44); MD NO; MEAN CORPUSCULAR HEMOGLOBIN 30.5 pg (27.0-34.8); MEAN CORPUSCULAR HGB CONC 33.6 g/dL (32.4-35.8); MEAN CORPUSCULAR VOLUME 90.8 fL (80-100); MEAN PLATELET VOLUME 6.7 fL (7.4-10.4); MONOCYTES # (AUTO) 0.44 x10^3/uL (0.2-0.8); MONOCYTES % (AUTO) 7 % (2-9); NEUTROPHILS # (AUTO) 4.42 x10^3/uL (1.8-6.8); NEUTROPHILS % (AUTO) 74 % (42-75); PLATELET COUNT 351 x10^3/uL (130-400); RED BLOOD COUNT 2.85 x10^6/uL (3.82-5.3); RED CELL DISTRIBUTION WIDTH 17.4 % (9.6-15.2)
[2018-12-06 04:48] LABS: ANION GAP 7 mmol/L (5-15); CALCIUM 7.7 mg/dL (8.5-10.1); CHLORIDE 115 mmol/L (98-107); CREATININE 1.86 mg/dL (0.55-1.02)
[2018-12-06] MEDS: ACETAMINOPHEN 325 MG TABLET PO PRN ×2 (04:57→17:18)
[2018-12-06 05:23] VITALS: BP 161/75
[2018-12-06] MEDS: CARVEDILOL 25 MG TABLET PO SCH ×2 (05:26→17:18)
[2018-12-06] MEDS: PANTOPROZOLE 40MG TABLET PO SCH ×2 (05:26→20:08)
[2018-12-06 07:00] VITALS: BP 181/56
[2018-12-06] MEDS: SODIUM CHLORIDE 0.9% 1,000 ML IV SCH ×2 (07:40→17:17)
[2018-12-06] MEDS: INSULIN LISPRO 100 UNITS/ML, PEN SQ-INSULIN SCH ×4 (07:41→20:00)
[2018-12-06] MEDS: DOCUSATE 100 MG CAPSULE PO SCH ×2 (09:39→20:08)
[2018-12-06] MEDS: niFEDipine ER 60 MG TABLET.ER PO SCH (09:39)
[2018-12-06] MEDS: SERTRALINE 50MG TABLET PO SCH (09:39)
[2018-12-06] MEDS: ASPIRIN 81 MG TABLET EC PO SCH (09:39)
[2018-12-06] MEDS: ALLOPURINOL 100 MG TABLET PO SCH ×2 (09:39→20:07)
[2018-12-06] MEDS: CYANOCOBALAMIN 1,000 MCG TABLET PO SCH (09:39)
[2018-12-06] MEDS: AMLODIPINE 10 MG TAB PO SCH (09:40)
[2018-12-06] MEDS: DONEPEZIL 5 MG TABLET PO SCH (09:40)
[2018-12-06] MEDS: ONDANSETRON 4 MG TABLET PO PRN ×2 (11:31→17:17)
[2018-12-06 13:27] VITALS: BP 127/60
[2018-12-06 19:28] VITALS: BP 146/66
[2018-12-06] MEDS: ONDANSETRON 2MG/ML, 2ML IVPush PRN (20:07)
[2018-12-06] MEDS: MELATONIN 5 MG TABLET PO SCH (20:08)
[2018-12-06] MEDS: ATORVASTATIN 10 MG TABLET PO SCH (20:08)
[2018-12-07 02:17] VITALS: BP 139/75
[2018-12-07] MEDS: SODIUM CHLORIDE 0.9% 1,000 ML IV SCH (03:18)
[2018-12-07 05:19] VITALS: BP 170/70
[2018-12-07] MEDS: PANTOPROZOLE 40MG TABLET PO SCH ×2 (05:21→20:13)
[2018-12-07] MEDS: CARVEDILOL 25 MG TABLET PO SCH ×2 (05:21→17:32)
[2018-12-07 06:42] VITALS: BP 176/67
[2018-12-07] MEDS: INSULIN LISPRO 100 UNITS/ML, PEN SQ-INSULIN SCH ×4 (07:30→20:21)
[2018-12-07] MEDS: ONDANSETRON 2MG/ML, 2ML IVPush PRN (07:37)
[2018-12-07] MEDS: niFEDipine ER 60 MG TABLET.ER PO SCH (08:05)
[2018-12-07] MEDS: DOCUSATE 100 MG CAPSULE PO SCH ×2 (08:05→20:14)
[2018-12-07] MEDS: ALLOPURINOL 100 MG TABLET PO SCH ×2 (08:05→20:14)
[2018-12-07] MEDS: ASPIRIN 81 MG TABLET EC PO SCH (08:05)
[2018-12-07] MEDS: DONEPEZIL 5 MG TABLET PO SCH (08:05)
[2018-12-07] MEDS: CYANOCOBALAMIN 1,000 MCG TABLET PO SCH (08:05)
[2018-12-07] MEDS: AMLODIPINE 10 MG TAB PO SCH (08:05)
[2018-12-07] MEDS: SERTRALINE 50MG TABLET PO SCH (08:07)
[2018-12-07 12:55] VITALS: BP 128/66
[2018-12-07 18:39] VITALS: BP 156/61
[2018-12-07] MEDS: MELATONIN 5 MG TABLET PO SCH (20:14)
[2018-12-07] MEDS: ATORVASTATIN 10 MG TABLET PO SCH (20:14)
[2018-12-08] VITALS: BP 169/75
[2018-12-08] MEDS: ACETAMINOPHEN 325 MG TABLET PO PRN (00:44)
[2018-12-08] MEDS: ONDANSETRON 4 MG TABLET PO PRN (01:52)
[2018-12-08 05:12] VITALS: BP 179/79
[2018-12-08] MEDS: PANTOPROZOLE 40MG TABLET PO SCH ×2 (05:13→20:11)
[2018-12-08] MEDS: CARVEDILOL 25 MG TABLET PO SCH ×2 (05:13→17:38)
[2018-12-08] MEDS: INSULIN LISPRO 100 UNITS/ML, PEN SQ-INSULIN SCH ×4 (07:50→20:09)
[2018-12-08 07:58] VITALS: BP 178/73
[2018-12-08] MEDS: CYANOCOBALAMIN 1,000 MCG TABLET PO SCH (08:01)
[2018-12-08] MEDS: niFEDipine ER 60 MG TABLET.ER PO SCH (08:01)
[2018-12-08] MEDS: SERTRALINE 50MG TABLET PO SCH (08:01)
[2018-12-08] MEDS: ASPIRIN 81 MG TABLET EC PO SCH (08:01)
[2018-12-08] MEDS: DONEPEZIL 5 MG TABLET PO SCH (08:01)
[2018-12-08] MEDS: DOCUSATE 100 MG CAPSULE PO SCH ×2 (08:01→20:12)
[2018-12-08] MEDS: ALLOPURINOL 100 MG TABLET PO SCH ×2 (08:01→20:12)
[2018-12-08] MEDS: AMLODIPINE 10 MG TAB PO SCH (08:01)
[2018-12-08 13:40] VITALS: BP 130/70
[2018-12-08 18:50] VITALS: BP 152/66
[2018-12-08] MEDS: MELATONIN 5 MG TABLET PO SCH (20:11)
[2018-12-08] MEDS: ATORVASTATIN 10 MG TABLET PO SCH (20:12)
[2018-12-09 00:12] VITALS: BP 164/65
[2018-12-09] MEDS: CARVEDILOL 25 MG TABLET PO SCH (05:46)
[2018-12-09] MEDS: PANTOPROZOLE 40MG TABLET PO SCH (05:46)
[2018-12-09] MEDS: INSULIN LISPRO 100 UNITS/ML, PEN SQ-INSULIN SCH ×3 (07:00→16:27)
[2018-12-09 07:25] VITALS: BP 176/76
[2018-12-09] MEDS: AMLODIPINE 10 MG TAB PO SCH (09:35)
[2018-12-09] MEDS: DOCUSATE 100 MG CAPSULE PO SCH (09:36)
[2018-12-09] MEDS: DONEPEZIL 5 MG TABLET PO SCH (09:36)
[2018-12-09] MEDS: niFEDipine ER 60 MG TABLET.ER PO SCH (09:36)
[2018-12-09] MEDS: SERTRALINE 50MG TABLET PO SCH (09:37)
[2018-12-09] MEDS: ALLOPURINOL 100 MG TABLET PO SCH (09:37)
[2018-12-09] MEDS: CYANOCOBALAMIN 1,000 MCG TABLET PO SCH (09:37)
[2018-12-09] MEDS: ASPIRIN 81 MG TABLET EC PO SCH (09:37)
[2018-12-09] MEDS: ONDANSETRON ODT 4 MG PO PRN (09:40)
[2018-12-09 12:13] LABS: BASOPHILS # (AUTO) 0.02 x10^3/uL (0-0.1); BASOPHILS % (AUTO) 0 % (0-1); EOSINOPHILS # (AUTO) 0.13 x10^3/uL (0-0.4); EOSINOPHILS % (AUTO) 2 % (1-7); LYMPHOCYTES # (AUTO) 1.21 x10^3/uL (1-3.4); LYMPHOCYTES % (AUTO) 19 % (22-44); MD NO; MEAN CORPUSCULAR HEMOGLOBIN 29.2 pg (27.0-34.8); MEAN CORPUSCULAR HGB CONC 32.2 g/dL (32.4-35.8); MEAN CORPUSCULAR VOLUME 90.5 fL (80-100); MEAN PLATELET VOLUME 7.1 fL (7.4-10.4); MONOCYTES % (AUTO) 8 % (2-9); NEUTROPHILS % (AUTO) 72 % (42-75); PLATELET COUNT 342 x10^3/uL (130-400); RED BLOOD COUNT 3.26 x10^6/uL (3.82-5.3); RED CELL DISTRIBUTION WIDTH 17.9 % (9.6-15.2)
[2018-12-09 13:35] VITALS: BP 130/57
[2018-12-09 13:53] LABS: ANION GAP 7 mmol/L (5-15); CALCIUM 8.3 mg/dL (8.5-10.1); CHLORIDE 111 mmol/L (98-107)
[2018-12-09 14:21] LABS: CREATININE 1.91 mg/dL (0.55-1.02)
[2018-12-09] MEDS ORDERED: MAGNESIUM SULFATE 4 GM in SODIUM CHLORIDE 0.9% 100 ML IV ONE (14:30)
[2018-12-09] MEDS ORDERED: HYDR-3341 PO (15:36)
[2018-12-09] MEDS: ERGOCALCIFEROL 50,000 UNIT CAPSULE PO SCH (16:24)
[2018-12-09 16:25] VITALS: BP 135/61
== END 2018-12-09 18:07 | disposition home health service (06) | DRG 640 ==
LOC: ED 11:33 → EDIP 12:21 → 3NW 14:30
PROVIDERS: ADMIT Internal Medicine; ATTEND Internal Medicine
DX: E87.5 Hyperkalemia (principal); N17.0 Acute kidney failure with tubular necrosis; I13.0 Hypertensive heart and chronic kidney disease with heart failure and stage 1 through stage 4 chronic kidney disease, or unspecified chronic kidney disease; I50.32 Chronic diastolic (congestive) heart failure; K56.1 Intussusception; N39.0 Urinary tract infection, site not specified; D63.1 Anemia in chronic kidney disease; D57.3 Sickle-cell trait; E11.22 Type 2 diabetes mellitus with diabetic chronic kidney disease; E78.5 Hyperlipidemia, unspecified; E86.0 Dehydration; F32.9 Major depressive disorder, single episode, unspecified; F41.9 Anxiety disorder, unspecified; G89.29 Other chronic pain; I35.9 Nonrheumatic aortic valve disorder, unspecified; I45.10 Unspecified right bundle-branch block; J44.9 Chronic obstructive pulmonary disease, unspecified; K21.9 Gastro-esophageal reflux disease without esophagitis; M10.9 Gout, unspecified; N18.3 Chronic kidney disease, stage 3 (moderate); H26.9 Unspecified cataract; F03.90 Unspecified dementia, unspecified severity, without behavioral disturbance, psychotic disturbance, mood disturbance, and anxiety; E11.40 Type 2 diabetes mellitus with diabetic neuropathy, unspecified; I34.0 Nonrheumatic mitral (valve) insufficiency; Z87.01 Personal history of pneumonia (recurrent); Z90.49 Acquired absence of other specified parts of digestive tract
CPT/HCPCS: 36415; 70450; 74018; 80048; 80053; 80162; 82607; 82962; 83735; 84100; 84439; 84443; 85025; 85651; 93005; 96360; 99285; G0378; J2405; J3475; Q0162; 92523-GN; J1815; J7030; J7040

== ENCOUNTER 2019-01-02 20:46 | Inpatient (IN) | payer MEDICARE ==
[~2019-01-02] VITALS: Ht 165.1 cm; Wt 69.8 kg
[~2019-01-02 20:46] MED LIST changes: +HYDR-3341 PO; -QUET25TA PO; +QUET25TA7 PO
[2019-01-02] MEDS ORDERED: SODIUM CHLORIDE FLUSH 10ML SYR IVF ONE (21:30)
[2019-01-02] MEDS ORDERED: methylPREDNISolone SOD SUCC 125 MG/2 ML IVP ONE (21:30)
[2019-01-02] MEDS ORDERED: ALBUTEROL/IPRATROPIUM 2.5MG/0.5MG, 3 ML NPPB ONE (21:30)
--- NOTE | 2019-01-02 21:30 | NUR ---
LATE ENTRY:PT BIB FAMILY C/O L ABD PAIN THAT IS CAUSING PT TO NOT DEEP BREATHE. PT STATES RECENT ABD SURGERY 12/10/18. DENIES ANY FEVERS OR DIARRHEA. DENIES TARRY STOOLS. DENIES HYPOTENSIVE SYMPTOMS. IV INITIATED AND PT GIVEN SOLUMEDROL AND BREATHING TX. PT BREATHING DEEPER AND STATES PAIN IN L SIDE LESS. STATES NOT WANTING ANY PAIN MEDICATIONS RIGHT NOW. ALL MONITORING IN PLACE.
[2019-01-02] MEDS ORDERED: methylPREDNISolone SOD SUCC 125 MG/2 ML ONE (21:34)
[2019-01-02] MEDS ORDERED: ALBUTEROL/IPRATROPIUM 2.5MG/0.5MG, 3 ML ONE (21:48)
[2019-01-02 22:13] LABS: BASOPHILS # (AUTO) 0.11 x10^3/uL (0-0.1); BASOPHILS % (AUTO) 1 % (0-1); EOSINOPHILS # (AUTO) 0.05 x10^3/uL (0-0.4); EOSINOPHILS % (AUTO) 1 % (1-7); LYMPHOCYTES # (AUTO) 1.35 x10^3/uL (1-3.4); LYMPHOCYTES % (AUTO) 15 % (22-44); MD NO; MEAN CORPUSCULAR HEMOGLOBIN 29.2 pg (27.0-34.8); MEAN CORPUSCULAR HGB CONC 32.7 g/dL (32.4-35.8); MEAN CORPUSCULAR VOLUME 89.3 fL (80-100); MEAN PLATELET VOLUME 6.5 fL (7.4-10.4); MONOCYTES # (AUTO) 0.64 x10^3/uL (0.2-0.8); MONOCYTES % (AUTO) 7 % (2-9); NEUTROPHILS # (AUTO) 6.61 x10^3/uL (1.8-6.8); NEUTROPHILS % (AUTO) 76 % (42-75); PLATELET COUNT 591 x10^3/uL (130-400); RED BLOOD COUNT 3.74 x10^6/uL (3.82-5.3); RED CELL DISTRIBUTION WIDTH 16.2 % (9.6-15.2)
[2019-01-02 22:25] LABS: ALANINE AMINOTRANSFERASE 11 U/L (12-78); ALBUMIN 3.2 g/dL (3.4-5.0); ANION GAP 5 mmol/L (5-15); CALCIUM 8.8 mg/dL (8.5-10.1); CHLORIDE 107 mmol/L (98-107); CREATININE 2.19 mg/dL (0.55-1.02)
[2019-01-02 22:30] LABS: ALKALINE PHOSPHATASE 121 U/L (45-117); BILIRUBIN,TOTAL 0.9 mg/dL (0.2-1.0); TOTAL PROTEIN 7.8 g/dL (6.4-8.2)
[2019-01-02] MEDS ORDERED: FUROSEMIDE 40 MG/4 ML IV ONE (23:00)
[2019-01-02] MEDS ORDERED: PLEASE ENTER HEIGHT AND WEIGHT MC SCH (23:00)
--- NOTE | 2019-01-02 23:00 | NUR ---
PT RESTING COMFORTABLY ON GURNEY ON 4L NC SAT AT 90-95%. NO INCREASED WOB NOTED. VSS.
[2019-01-02] MEDS ORDERED: FUROSEMIDE 20 MG/2 ML ONE (23:30)
--- NOTE | 2019-01-03 00:34 | NUR ---
PT GIVEN WARM BLANKET AND LIGHTS OFF FOR COMFORT. NO IMMEDIATE NEEDS. PT ON CARD TELE HOLD. HOSPITAL BED ORDERED.
[2019-01-03] MEDS ORDERED: ACETAMINOPHEN 325 MG TABLET PO PRN (01:00)
[2019-01-03] MEDS ORDERED: DOCUSATE 100 MG CAPSULE PO PRN (01:00)
[2019-01-03] MEDS ORDERED: cloniDINE 0.3MG PATCH TD SCH (01:00)
[2019-01-03] MEDS ORDERED: ERGOCALCIFEROL 50,000 UNIT CAPSULE PO SCH (01:00)
[2019-01-03] MEDS ORDERED: LABETALOL 5 MG/ML SYRINGE IVPush PRN (01:00)
[2019-01-03] MEDS ORDERED: SIMETHICONE 80 MG CHEW TAB PO PRN (01:00)
[2019-01-03] MEDS ORDERED: ONDANSETRON ODT 4 MG PO PRN ×2 (01:00→03:00)
[2019-01-03] MEDS ORDERED: LIDODERM 5% PATCH TD PRN (01:00)
[2019-01-03] MEDS: ATORVASTATIN 10 MG TABLET PO SCH ×2 (01:21→21:23)
[2019-01-03] MEDS: MELATONIN 5 MG TABLET PO SCH ×2 (01:21→21:22)
--- NOTE | 2019-01-03 01:56 | NUR ---
PT SLEEPING COMFORTABLY ON GURNEY. RR EVEN AND UNLABORED. NADN.
[2019-01-03 04:51] LABS: TROPONIN I 0.155 ng/mL (0.000-0.045)
--- NOTE | 2019-01-03 06:49 | NUR ---
AWAITING MEDS FROM RX.
--- NOTE | 2019-01-03 07:05 | NUR ---
Report from DAYSI Jarvis.
--- NOTE | 2019-01-03 07:18 | NUR ---
PT sleep in tere. NAD noted at this time. Breathing regular and unlabored.
--- NOTE | 2019-01-03 07:20 | NUR ---
Continue to await morning medications from Pharmacy.
--- NOTE | 2019-01-03 08:20 | NUR ---
HOSPITALIST AT BEDSIDE TO SEE PT.
--- NOTE | 2019-01-03 09:15 | NUR ---
MORNING MEDICATIONS REQUESTED AGAIN.
--- NOTE | 2019-01-03 09:36 | NUR ---
PT SLEEP IN [facility]. NAD NOTED AT THIS TIME. EQUAL RISE AND FALL OF CHEST. WILL CONTINUE TO MONTIOR.
[2019-01-03 09:39] LABS: IRON LEVEL 19 mcg/dL (50-170); TRANSFERRIN 156 mg/dL (200-360)
[2019-01-03 09:42] LABS: TROPONIN I 0.118 ng/mL (0.000-0.045)
[2019-01-03 09:51] LABS: % IRON SATURATION 10 % (20-55); TOTAL IRON BINDING CAPACITY 200 mcg/dL (250-450)
[2019-01-03] MEDS ORDERED: ASPIRIN 81 MG TABLET EC ONE (09:54)
[2019-01-03] MEDS ORDERED: FUROSEMIDE 40 MG/4 ML ONE (09:54)
[2019-01-03] MEDS ORDERED: FAMOTIDINE 20 MG TABLET ONE (09:54)
[2019-01-03] MEDS ORDERED: DOCUSATE 100 MG CAPSULE ONE (09:54)
--- NOTE | 2019-01-03 10:03 | NUR ---
PT AWAITING RECHECK AT THIS TIME. WILL CONTINUE TO MONITOR.
[2019-01-03] MEDS: DONEPEZIL 5 MG TABLET PO SCH (10:20)
[2019-01-03] MEDS: niFEDipine ER 60 MG TABLET.ER PO SCH (10:20)
[2019-01-03] MEDS: FAMOTIDINE 20 MG TABLET PO SCH ×2 (10:20→21:23)
[2019-01-03] MEDS: SERTRALINE 50MG TABLET PO SCH (10:20)
[2019-01-03] MEDS: PANTOPROZOLE 40MG TABLET PO SCH ×2 (10:20→21:37)
[2019-01-03] MEDS: CYANOCOBALAMIN 1,000 MCG TABLET PO SCH (10:20)
[2019-01-03] MEDS: CARVEDILOL 25 MG TABLET PO SCH ×2 (10:20→21:22)
[2019-01-03] MEDS: ALLOPURINOL 100 MG TABLET PO SCH ×2 (10:20→21:22)
[2019-01-03] MEDS: ASPIRIN 81 MG TABLET EC PO SCH (10:20)
[2019-01-03] MEDS: DOCUSATE 100 MG CAPSULE PO SCH ×2 (10:20→21:24)
[2019-01-03] MEDS: AMLODIPINE 10 MG TAB PO SCH (10:20)
[2019-01-03] MEDS: FUROSEMIDE 40 MG/4 ML IV SCH ×2 (11:00→21:37)
--- NOTE | 2019-01-03 11:05 | NUR ---
REPORT TO DAYSI CORDERO.
--- NOTE | 2019-01-03 11:40 | NUR ---
PT'S JOSE SATURATED IN URINE. PT'S JOSE CHANGED ALONG WITH GOWN.
--- NOTE | 2019-01-03 11:55 | NUR ---
PT TO FLOOR WITH TECH.
[2019-01-03 12:17] VITALS: BP 116/59
[2019-01-03] MEDS: HEPARIN 5,000 UNITS/ML, 1ML SQ SCH ×2 (12:50→21:37)
[2019-01-03] MEDS: IRON SUCROSE COMPLEX 100MG/5ML IV SCH (12:50)
[2019-01-03 20:00] VITALS: BP 136/64
[2019-01-03 22:57] LABS: CULTURE INDICATED? YES; MICROSCOPIC INDICATED
[2019-01-04 02:00] VITALS: BP 146/69
[2019-01-04 05:02] LABS: BASOPHILS # (AUTO) 0.02 x10^3/uL (0-0.1); BASOPHILS % (AUTO) 0 % (0-1); EOSINOPHILS # (AUTO) 0.01 x10^3/uL (0-0.4); EOSINOPHILS % (AUTO) 0 % (1-7); LYMPHOCYTES # (AUTO) 1.46 x10^3/uL (1-3.4); LYMPHOCYTES % (AUTO) 23 % (22-44); MD NO; MEAN CORPUSCULAR HEMOGLOBIN 29.7 pg (27.0-34.8); MEAN CORPUSCULAR HGB CONC 33.5 g/dL (32.4-35.8); MEAN CORPUSCULAR VOLUME 88.6 fL (80-100); MEAN PLATELET VOLUME 6.5 fL (7.4-10.4); MONOCYTES # (AUTO) 0.56 x10^3/uL (0.2-0.8); MONOCYTES % (AUTO) 9 % (2-9); NEUTROPHILS # (AUTO) 4.23 x10^3/uL (1.8-6.8); NEUTROPHILS % (AUTO) 67 % (42-75); PLATELET COUNT 506 x10^3/uL (130-400); RED BLOOD COUNT 3.08 x10^6/uL (3.82-5.3)
[2019-01-04 05:06] LABS: ALANINE AMINOTRANSFERASE 7 U/L (12-78); ALBUMIN 2.4 g/dL (3.4-5.0); ANION GAP 7 mmol/L (5-15); CALCIUM 8.1 mg/dL (8.5-10.1); CHLORIDE 104 mmol/L (98-107); CREATININE 2.58 mg/dL (0.55-1.02)
[2019-01-04 05:09] LABS: ALKALINE PHOSPHATASE 100 U/L (45-117); BILIRUBIN,TOTAL 0.4 mg/dL (0.2-1.0); TOTAL PROTEIN 6.1 g/dL (6.4-8.2)
[2019-01-04] MEDS: CARVEDILOL 25 MG TABLET PO SCH ×2 (05:12→17:44)
[2019-01-04] MEDS: PANTOPROZOLE 40MG TABLET PO SCH ×2 (05:12→20:41)
[2019-01-04] MEDS: HEPARIN 5,000 UNITS/ML, 1ML SQ SCH ×3 (05:13→20:40)
[2019-01-04 06:48] VITALS: BP 160/74
[2019-01-04] MEDS: niFEDipine ER 60 MG TABLET.ER PO SCH (08:19)
[2019-01-04] MEDS: FAMOTIDINE 20 MG TABLET PO SCH (08:19)
[2019-01-04] MEDS: SERTRALINE 50MG TABLET PO SCH (08:19)
[2019-01-04] MEDS: ALLOPURINOL 100 MG TABLET PO SCH ×2 (08:19→20:41)
[2019-01-04] MEDS: AMLODIPINE 10 MG TAB PO SCH (08:20)
[2019-01-04] MEDS: FUROSEMIDE 40 MG/4 ML IV SCH (08:20)
[2019-01-04] MEDS: DONEPEZIL 5 MG TABLET PO SCH (08:20)
[2019-01-04] MEDS: DOCUSATE 100 MG CAPSULE PO SCH ×2 (08:20→20:41)
[2019-01-04] MEDS: IRON SUCROSE COMPLEX 100MG/5ML IV SCH (08:20)
[2019-01-04] MEDS: CYANOCOBALAMIN 1,000 MCG TABLET PO SCH (08:20)
[2019-01-04] MEDS: ASPIRIN 81 MG TABLET EC PO SCH (08:20)
[2019-01-04 13:49] VITALS: BP 113/51
[2019-01-04 19:32] VITALS: BP 150/58
[2019-01-04] MEDS: MELATONIN 5 MG TABLET PO SCH (20:41)
[2019-01-04] MEDS: ATORVASTATIN 10 MG TABLET PO SCH (20:41)
[2019-01-04] MEDS ORDERED: TEMAZEPAM 15 MG CAPSULE ONE (21:13)
[2019-01-04] MEDS ORDERED: TEMAZEPAM 15 MG CAPSULE PO PRN (21:30)
[2019-01-05 01:10] VITALS: BP 145/68
[2019-01-05 05:05] LABS: ANION GAP 6 mmol/L (5-15); CALCIUM 8.3 mg/dL (8.5-10.1); CHLORIDE 105 mmol/L (98-107)
[2019-01-05 05:44] VITALS: BP 139/69
[2019-01-05] MEDS: PANTOPROZOLE 40MG TABLET PO SCH (05:44)
[2019-01-05] MEDS: HEPARIN 5,000 UNITS/ML, 1ML SQ SCH (05:44)
[2019-01-05] MEDS: CARVEDILOL 25 MG TABLET PO SCH (05:44)
[2019-01-05 08:20] VITALS: BP 156/75
[2019-01-05] MEDS ORDERED: MAGNESIUM SULFATE PMX 2GM/50ML 50 ML IV ONE (08:30)
[2019-01-05] MEDS ORDERED: FUROSEMIDE 20 MG TABLET PO SCH (09:00)
[2019-01-05] MEDS: CYANOCOBALAMIN 1,000 MCG TABLET PO SCH (10:12)
[2019-01-05] MEDS: ASPIRIN 81 MG TABLET EC PO SCH (10:12)
[2019-01-05] MEDS: DOCUSATE 100 MG CAPSULE PO SCH (10:12)
[2019-01-05] MEDS: AMLODIPINE 10 MG TAB PO SCH (10:12)
[2019-01-05] MEDS: ALLOPURINOL 100 MG TABLET PO SCH (10:13)
[2019-01-05] MEDS: IRON SUCROSE COMPLEX 100MG/5ML IV SCH (10:19)
[2019-01-05] MEDS: niFEDipine ER 60 MG TABLET.ER PO SCH (10:19)
[2019-01-05] MEDS: DONEPEZIL 5 MG TABLET PO SCH (10:20)
[2019-01-05] MEDS: SERTRALINE 50MG TABLET PO SCH (10:20)
[2019-01-05] MEDS ORDERED: FERR325T16 PO (13:54)
[2019-01-05] MEDS ORDERED: FURO20TA3 PO (13:54)
[2019-01-05 14:05] VITALS: BP 138/77
[2019-01-05 15:15] VITALS: BP 97/65
[2019-01-05] MEDS ORDERED: ONDA4TAB7 PO (16:33)
== END 2019-01-05 16:39 | disposition home or self-care (01) | DRG 291 ==
LOC: ED 23:56 → EDIP 23:59 → 5SO 01-03 11:35 → DCLOUNGE 01-05 16:05
PROVIDERS: ADMIT Internal Medicine; ATTEND Internal Medicine
DX: I13.0 Hypertensive heart and chronic kidney disease with heart failure and stage 1 through stage 4 chronic kidney disease, or unspecified chronic kidney disease (principal); J96.01 Acute respiratory failure with hypoxia; I50.43 Acute on chronic combined systolic (congestive) and diastolic (congestive) heart failure; I24.8 Other forms of acute ischemic heart disease; N18.4 Chronic kidney disease, stage 4 (severe); J44.9 Chronic obstructive pulmonary disease, unspecified; E11.22 Type 2 diabetes mellitus with diabetic chronic kidney disease; E78.5 Hyperlipidemia, unspecified; D57.3 Sickle-cell trait; I08.0 Rheumatic disorders of both mitral and aortic valves; I27.20 Pulmonary hypertension, unspecified; I45.10 Unspecified right bundle-branch block; D47.3 Essential (hemorrhagic) thrombocythemia; F03.90 Unspecified dementia, unspecified severity, without behavioral disturbance, psychotic disturbance, mood disturbance, and anxiety; F41.9 Anxiety disorder, unspecified; K21.9 Gastro-esophageal reflux disease without esophagitis; Z87.01 Personal history of pneumonia (recurrent); Z87.440 Personal history of urinary (tract) infections
CPT/HCPCS: 36415; 74022; 80048; 80053; 81001; 82728; 82962; 83540; 83550; 83690; 83735; 83880; 84466; 84484; 85025; 87040; 87086; 93005; 93306; 94640; 96374; 96375; G0378; J1644; J1756; J1940; J7620; Q0162; J2930; J3475

== ENCOUNTER 2019-02-07 13:44 | Inpatient (IN) | payer MEDICARE ==
[~2019-02-07] VITALS: Ht 165.1 cm; Wt 78.8 kg
[~2019-02-07 13:44] MED LIST changes: +ACID1TAB7 PO; +FERR325T16 PO; +ISOS10TA2 PO; +ONDA4TAB7 PO
[2019-02-07 14:57] LABS: BASOPHILS % (AUTO) 0 % (0-1); EOSINOPHILS # (AUTO) 0.11 x10^3/uL (0-0.4); EOSINOPHILS % (AUTO) 2 % (1-7); LYMPHOCYTES # (AUTO) 0.76 x10^3/uL (1-3.4); LYMPHOCYTES % (AUTO) 14 % (22-44); MD NO; MEAN CORPUSCULAR HGB CONC 33.4 g/dL (32.4-35.8); MEAN CORPUSCULAR VOLUME 89.9 fL (80-100); MEAN PLATELET VOLUME 6.7 fL (7.4-10.4); MONOCYTES # (AUTO) 0.32 x10^3/uL (0.2-0.8); MONOCYTES % (AUTO) 6 % (2-9); NEUTROPHILS # (AUTO) 4.08 x10^3/uL (1.8-6.8); NEUTROPHILS % (AUTO) 77 % (42-75); PLATELET COUNT 474 x10^3/uL (130-400); RED BLOOD COUNT 3.53 x10^6/uL (3.82-5.3); RED CELL DISTRIBUTION WIDTH 16.7 % (9.6-15.2)
[2019-02-07] MEDS ORDERED: ALBUTEROL/IPRATROPIUM 2.5MG/0.5MG, 3 ML NPPB ONE (15:00)
[2019-02-07] MEDS ORDERED: methylPREDNISolone SOD SUCC 125 MG/2 ML IVP ONE (15:00)
[2019-02-07 15:07] LABS: ALBUMIN 3.6 g/dL (3.4-5.0); ANION GAP 6 mmol/L (5-15); CALCIUM 9.1 mg/dL (8.5-10.1); CHLORIDE 108 mmol/L (98-107); CREATININE 3.31 mg/dL (0.55-1.02)
[2019-02-07] MEDS ORDERED: PLEASE ENTER HEIGHT AND WEIGHT MC SCH (15:30)
[2019-02-07] MEDS ORDERED: methylPREDNISolone SOD SUCC 125 MG/2 ML ONE (15:32)
--- NOTE | 2019-02-07 18:16 | NUR ---
PT TAKEN OFF BIPAP AND PLACED OF NC CONTINUES TO DE SAT TO BE PLACED BACK ON OPTI FLOW RESP CALL FOR OPTI FLOW
[2019-02-07] MEDS ORDERED: FUROSEMIDE 40 MG/4 ML IV ONE (18:30)
--- NOTE | 2019-02-07 18:30 | NUR ---
ON OPTI FLOW AT THIS TIME
[2019-02-07] MEDS ORDERED: FUROSEMIDE 40 MG/4 ML ONE (18:36)
--- NOTE | 2019-02-07 19:10 | NUR ---
REPORT OF PT FROM DAYSI CROSS AND ASSUMING CARE OF PT AT THIS TIME.
[2019-02-07] MEDS ORDERED: NITROGLYCERIN 0.4 MG BOTTLE (25 TABS) SL PRN (19:30)
[2019-02-07] MEDS ORDERED: morphine SULFATE 10 MG/ML, 1ML IVPush PRN (19:30)
[2019-02-07] MEDS ORDERED: hydrALAzine 20 MG/ML, 1ML IVPush PRN (19:30)
[2019-02-07] MEDS ORDERED: cloniDINE 0.3MG PATCH TD SCH (19:30)
[2019-02-07 19:49] LABS: BASOPHILS % (AUTO) 0 % (0-1); EOSINOPHILS % (AUTO) 0 % (1-7); LYMPHOCYTES # (AUTO) 0.36 x10^3/uL (1-3.4); LYMPHOCYTES % (AUTO) 8 % (22-44); MD NO; MEAN CORPUSCULAR HEMOGLOBIN 29.8 pg (27.0-34.8); MEAN CORPUSCULAR HGB CONC 33.2 g/dL (32.4-35.8); MEAN CORPUSCULAR VOLUME 89.7 fL (80-100); MEAN PLATELET VOLUME 6.4 fL (7.4-10.4); MONOCYTES # (AUTO) 0.05 x10^3/uL (0.2-0.8); MONOCYTES % (AUTO) 1 % (2-9); NEUTROPHILS # (AUTO) 4.01 x10^3/uL (1.8-6.8); NEUTROPHILS % (AUTO) 91 % (42-75); PLATELET COUNT 434 x10^3/uL (130-400); RED BLOOD COUNT 3.44 x10^6/uL (3.82-5.3); RED CELL DISTRIBUTION WIDTH 16.5 % (9.6-15.2)
[2019-02-07 20:01] LABS: TROPONIN I < 0.015 ng/mL (0.000-0.045)
--- NOTE | 2019-02-07 20:17 | NUR ---
PT VSS AND UPDATED IN EMR. REPORT OF PT TO DAYSI MCDONNELL. ALL QUESTIONS ANSWERED. TECH PAGED FOR TRANSPORT AT THIS TIME.
[2019-02-07] MEDS: ATORVASTATIN 10 MG TABLET PO SCH (22:05)
[2019-02-07] MEDS: DOCUSATE 100 MG CAPSULE PO SCH (22:05)
[2019-02-07] MEDS: ALLOPURINOL 100 MG TABLET PO SCH (22:05)
[2019-02-07] MEDS: FERROUS GLUCONATE 324 MG TABLET PO SCH (22:05)
[2019-02-07] MEDS: ISOSORBIDE DINITRATE 10 MG TABLET PO SCH (22:06)
[2019-02-07] MEDS: HEPARIN 5,000 UNITS/ML, 1ML SQ SCH (22:07)
[2019-02-07] MEDS: methylPREDNISolone SOD SUCC 125 MG/2 ML IVPush SCH (22:07)
[2019-02-07 22:21] VITALS: BP 154/60
[2019-02-08 01:45] LABS: TROPONIN I < 0.015 ng/mL (0.000-0.045)
[2019-02-08 03:45] VITALS: BP 138/65
[2019-02-08] MEDS: HEPARIN 5,000 UNITS/ML, 1ML SQ SCH ×3 (03:51→20:28)
[2019-02-08] MEDS: methylPREDNISolone SOD SUCC 125 MG/2 ML IVPush SCH ×4 (03:51→22:21)
[2019-02-08] MEDS: ACETAMINOPHEN 325 MG TABLET PO PRN ×2 (05:51→20:26)
[2019-02-08] MEDS: PANTOPROZOLE 40MG TABLET PO SCH ×2 (05:51→16:09)
[2019-02-08] MEDS: CARVEDILOL 25 MG TABLET PO SCH ×2 (05:52→17:48)
[2019-02-08 05:56] LABS: ANION GAP 8 mmol/L (5-15); CALCIUM 9.3 mg/dL (8.5-10.1); CHLORIDE 105 mmol/L (98-107)
[2019-02-08 05:59] LABS: CREATININE 3.47 mg/dL (0.55-1.02)
[2019-02-08] MEDS: FUROSEMIDE 40 MG/4 ML IV SCH ×2 (06:35→16:10)
[2019-02-08] MEDS: ALBUTEROL/IPRATROPIUM 2.5MG/0.5MG, 3 ML NPPB SCH ×4 (07:00→19:09)
[2019-02-08 07:17] VITALS: BP 150/67
[2019-02-08] MEDS: GUAIFENESIN 200 MG TABLET PO SCH ×4 (10:08→20:25)
[2019-02-08] MEDS: AMLODIPINE 10 MG TAB PO SCH (10:08)
[2019-02-08] MEDS: DONEPEZIL 5 MG TABLET PO SCH (10:08)
[2019-02-08] MEDS: ASPIRIN 81 MG TABLET EC PO SCH (10:08)
[2019-02-08] MEDS: SERTRALINE 50MG TABLET PO SCH (10:08)
[2019-02-08] MEDS: DOCUSATE 100 MG CAPSULE PO SCH ×2 (10:09→20:26)
[2019-02-08] MEDS: ALLOPURINOL 100 MG TABLET PO SCH ×2 (10:09→20:26)
[2019-02-08] MEDS: ISOSORBIDE DINITRATE 10 MG TABLET PO SCH ×3 (10:09→20:27)
[2019-02-08] MEDS: INSULIN LISPRO 100 UNITS/ML, PEN SQ-INSULIN SCH ×3 (11:00→20:29)
[2019-02-08 12:25] VITALS: BP 162/66
[2019-02-08] MEDS ORDERED: PHARMACY MAY ADJ FOR RENAL FX MC PRN (19:00)
[2019-02-08 19:32] VITALS: BP 145/63
[2019-02-08] MEDS ORDERED: PIPERACILLIN/TAZO/PMX 3.375GM 50 ML IV SCH (20:00)
[2019-02-08] MEDS: ATORVASTATIN 10 MG TABLET PO SCH (20:26)
[2019-02-08] MEDS: PIPERACILLIN/TAZO/PMX 2.25GM 50 ML IV SCH (20:32)
[2019-02-09 01:39] VITALS: BP 153/62
[2019-02-09] MEDS: PIPERACILLIN/TAZO/PMX 2.25GM 50 ML IV SCH ×4 (01:39→22:29)
[2019-02-09] MEDS: methylPREDNISolone SOD SUCC 125 MG/2 ML IVPush SCH ×4 (03:12→22:29)
[2019-02-09] MEDS: HEPARIN 5,000 UNITS/ML, 1ML SQ SCH ×3 (04:35→20:03)
[2019-02-09 05:10] LABS: MEAN CORPUSCULAR HGB CONC 32.1 g/dL (32.4-35.8); MEAN CORPUSCULAR VOLUME 90.2 fL (80-100); MEAN PLATELET VOLUME 6.9 fL (7.4-10.4); PLATELET COUNT 409 x10^3/uL (130-400); RED BLOOD COUNT 3.71 x10^6/uL (3.82-5.3); RED CELL DISTRIBUTION WIDTH 16.3 % (9.6-15.2)
[2019-02-09 05:24] LABS: ALANINE AMINOTRANSFERASE 11 U/L (12-78); ALBUMIN 3.1 g/dL (3.4-5.0); ANION GAP 9 mmol/L (5-15); CALCIUM 9.1 mg/dL (8.5-10.1); CHLORIDE 102 mmol/L (98-107); CREATININE 2.89 mg/dL (0.55-1.02)
[2019-02-09 05:26] LABS: ALKALINE PHOSPHATASE 96 U/L (45-117); BILIRUBIN,TOTAL 0.5 mg/dL (0.2-1.0); TOTAL PROTEIN 6.9 g/dL (6.4-8.2)
[2019-02-09 05:50] LABS: BASOPHILS % (AUTO) 0 % (0-1); EOSINOPHILS % (AUTO) 0 % (1-7); LYMPHOCYTES # (AUTO) 0.29 x10^3/uL (1-3.4); LYMPHOCYTES % (AUTO) 4 % (22-44); MD SCAN; MONOCYTES # (AUTO) 0.08 x10^3/uL (0.2-0.8); MONOCYTES % (AUTO) 1 % (2-9); NEUTROPHILS % (AUTO) 95 % (42-75)
[2019-02-09 06:09] LABS: HEMOGLOBIN A1C 4.8 % (4.2-6.3)
[2019-02-09] MEDS: PANTOPROZOLE 40MG TABLET PO SCH ×2 (06:25→17:10)
[2019-02-09] MEDS: GUAIFENESIN 200 MG TABLET PO SCH ×4 (06:25→20:06)
[2019-02-09] MEDS: CARVEDILOL 25 MG TABLET PO SCH ×2 (06:31→20:04)
[2019-02-09] MEDS: ALBUTEROL/IPRATROPIUM 2.5MG/0.5MG, 3 ML NPPB SCH ×4 (07:00→20:00)
[2019-02-09 08:29] VITALS: BP 154/67
[2019-02-09] MEDS: DOCUSATE 100 MG CAPSULE PO SCH ×2 (08:52→20:07)
[2019-02-09] MEDS: ALLOPURINOL 100 MG TABLET PO SCH ×2 (09:36→20:06)
[2019-02-09] MEDS: ASPIRIN 81 MG TABLET EC PO SCH (09:36)
[2019-02-09] MEDS: SERTRALINE 50MG TABLET PO SCH (09:36)
[2019-02-09] MEDS: DONEPEZIL 5 MG TABLET PO SCH (09:36)
[2019-02-09] MEDS: FUROSEMIDE 40 MG/4 ML IV SCH ×2 (09:37→17:11)
[2019-02-09] MEDS: INSULIN LISPRO 100 UNITS/ML, PEN SQ-INSULIN SCH ×4 (09:39→20:18)
[2019-02-09] MEDS: AMLODIPINE 10 MG TAB PO SCH (09:50)
[2019-02-09] MEDS: ISOSORBIDE DINITRATE 10 MG TABLET PO SCH ×3 (09:50→20:05)
[2019-02-09 14:40] VITALS: BP 150/55
[2019-02-09 20:00] VITALS: BP 146/56
[2019-02-09] MEDS: FERROUS GLUCONATE 324 MG TABLET PO SCH (20:03)
[2019-02-09] MEDS: ATORVASTATIN 10 MG TABLET PO SCH (20:06)
[2019-02-10 00:23] VITALS: BP 151/64
[2019-02-10] MEDS: methylPREDNISolone SOD SUCC 125 MG/2 ML IVPush SCH ×4 (03:37→23:03)
[2019-02-10] MEDS: PIPERACILLIN/TAZO/PMX 2.25GM 50 ML IV SCH (03:37)
[2019-02-10] MEDS: CARVEDILOL 25 MG TABLET PO SCH ×2 (05:05→17:48)
[2019-02-10] MEDS: PANTOPROZOLE 40MG TABLET PO SCH ×2 (05:05→17:48)
[2019-02-10] MEDS: HEPARIN 5,000 UNITS/ML, 1ML SQ SCH ×3 (05:05→23:04)
[2019-02-10] MEDS: GUAIFENESIN 200 MG TABLET PO SCH ×4 (05:05→23:04)
[2019-02-10 05:57] LABS: ALANINE AMINOTRANSFERASE 10 U/L (12-78); ALBUMIN 2.9 g/dL (3.4-5.0); ANION GAP 9 mmol/L (5-15); CALCIUM 8.5 mg/dL (8.5-10.1); CHLORIDE 102 mmol/L (98-107); CREATININE 2.59 mg/dL (0.55-1.02)
[2019-02-10 05:59] LABS: ALKALINE PHOSPHATASE 80 U/L (45-117); BILIRUBIN,TOTAL 0.5 mg/dL (0.2-1.0); TOTAL PROTEIN 6.2 g/dL (6.4-8.2)
[2019-02-10] MEDS: FUROSEMIDE 40 MG/4 ML IV SCH ×4 (06:30→23:02)
[2019-02-10] MEDS: ACETAMINOPHEN 325 MG TABLET PO PRN (06:30)
[2019-02-10 07:00] VITALS: BP 161/63
[2019-02-10] MEDS: ALBUTEROL/IPRATROPIUM 2.5MG/0.5MG, 3 ML NPPB SCH ×4 (07:11→19:53)
[2019-02-10] MEDS: SERTRALINE 50MG TABLET PO SCH (09:24)
[2019-02-10] MEDS: ASPIRIN 81 MG TABLET EC PO SCH (09:24)
[2019-02-10] MEDS: AMOXICILLIN/CLAV 875-125MG TABLET PO SCH ×2 (09:24→23:04)
[2019-02-10] MEDS: AMLODIPINE 10 MG TAB PO SCH (09:24)
[2019-02-10] MEDS: DONEPEZIL 5 MG TABLET PO SCH (09:24)
[2019-02-10] MEDS: DOXYCYCLINE 100MG TABLET PO SCH ×2 (09:24→23:05)
[2019-02-10] MEDS: ALLOPURINOL 100 MG TABLET PO SCH ×2 (09:24→23:04)
[2019-02-10] MEDS: DOCUSATE 100 MG CAPSULE PO SCH ×2 (09:25→21:00)
[2019-02-10] MEDS: INSULIN LISPRO 100 UNITS/ML, PEN SQ-INSULIN SCH ×4 (09:26→23:03)
[2019-02-10] MEDS: ISOSORBIDE DINITRATE 10 MG TABLET PO SCH ×3 (09:30→23:04)
[2019-02-10] MEDS: ONDANSETRON 2MG/ML, 2ML IVPush PRN ×2 (11:25→23:23)
[2019-02-10 16:36] VITALS: BP 155/64
[2019-02-10 18:52] VITALS: BP 150/68
[2019-02-10] MEDS: ATORVASTATIN 10 MG TABLET PO SCH (23:04)
[2019-02-11 02:50] VITALS: BP 136/46
[2019-02-11] MEDS: PANTOPROZOLE 40MG TABLET PO SCH ×2 (05:11→15:31)
[2019-02-11] MEDS: HEPARIN 5,000 UNITS/ML, 1ML SQ SCH ×3 (05:11→22:26)
[2019-02-11] MEDS: GUAIFENESIN 200 MG TABLET PO SCH ×4 (05:11→22:27)
[2019-02-11] MEDS: methylPREDNISolone SOD SUCC 125 MG/2 ML IVPush SCH ×3 (05:11→15:32)
[2019-02-11] MEDS: CARVEDILOL 25 MG TABLET PO SCH ×2 (05:12→19:37)
[2019-02-11 05:37] LABS: CHLORIDE 105 mmol/L (98-107)
[2019-02-11 05:46] LABS: ALANINE AMINOTRANSFERASE 15 U/L (12-78); ALBUMIN 3.1 g/dL (3.4-5.0); ALKALINE PHOSPHATASE 81 U/L (45-117); ANION GAP 8 mmol/L (5-15); BILIRUBIN,TOTAL 0.7 mg/dL (0.2-1.0); CALCIUM 8.4 mg/dL (8.5-10.1); CREATININE 2.58 mg/dL (0.55-1.02); TOTAL PROTEIN 6.4 g/dL (6.4-8.2)
[2019-02-11 05:55] LABS: MEAN CORPUSCULAR HEMOGLOBIN 29.9 pg (27.0-34.8); MEAN CORPUSCULAR VOLUME 90.7 fL (80-100); PLATELET COUNT 376 x10^3/uL (130-400); RED BLOOD COUNT 3.66 x10^6/uL (3.82-5.3); RED CELL DISTRIBUTION WIDTH 16.6 % (9.6-15.2)
[2019-02-11 06:38] LABS: MD YES
[2019-02-11 06:40] LABS: LYMPHS% (MANUAL) 2 % (22-44); MONOS% (MANUAL) 2 % (2-9); SEG#(MANUAL) 4.99 x10^3/uL (1.8-6.8); SEGS% (MANUAL) 96 % (42-75)
[2019-02-11 06:41] LABS: <PLATELET ESTIMATE> ADEQUATE; <PLT MORPHOLOGY> NORMAL PLT MORPH; ANISOCYTOSIS 1+
[2019-02-11 06:57] VITALS: BP 184/75
[2019-02-11] MEDS: ALBUTEROL/IPRATROPIUM 2.5MG/0.5MG, 3 ML NPPB SCH (07:46)
[2019-02-11] MEDS: INSULIN LISPRO 100 UNITS/ML, PEN SQ-INSULIN SCH ×4 (07:52→22:26)
[2019-02-11] MEDS: SERTRALINE 50MG TABLET PO SCH (08:47)
[2019-02-11] MEDS: AMLODIPINE 10 MG TAB PO SCH (08:47)
[2019-02-11] MEDS: ALLOPURINOL 100 MG TABLET PO SCH ×2 (08:47→22:28)
[2019-02-11] MEDS: ASPIRIN 81 MG TABLET EC PO SCH (08:47)
[2019-02-11] MEDS: DONEPEZIL 5 MG TABLET PO SCH (08:47)
[2019-02-11] MEDS: FUROSEMIDE 40 MG/4 ML IV SCH ×2 (08:47→15:32)
[2019-02-11] MEDS: ISOSORBIDE DINITRATE 10 MG TABLET PO SCH ×3 (08:47→22:27)
[2019-02-11] MEDS: AMOXICILLIN/CLAV 875-125MG TABLET PO SCH ×2 (08:47→22:29)
[2019-02-11] MEDS: DOXYCYCLINE 100MG TABLET PO SCH ×2 (08:47→22:30)
[2019-02-11] MEDS: DOCUSATE 100 MG CAPSULE PO SCH ×2 (09:00→22:29)
[2019-02-11 14:05] VITALS: BP 179/57
[2019-02-11] MEDS: ACETAMINOPHEN 325 MG TABLET PO PRN (15:35)
[2019-02-11] MEDS ORDERED: ALBUTEROL/IPRATROPIUM 2.5MG/0.5MG, 3 ML NPPB PRN (16:00)
[2019-02-11 16:55] VITALS: BP 161/68
[2019-02-11 19:35] VITALS: BP 172/65
[2019-02-11] MEDS ORDERED: FUROSEMIDE 40 MG/4 ML IV SCH (21:00)
[2019-02-11 22:15] VITALS: BP 153/70
[2019-02-11] MEDS: ATORVASTATIN 10 MG TABLET PO SCH (22:28)
[2019-02-11] MEDS: FERROUS GLUCONATE 324 MG TABLET PO SCH (22:32)
[2019-02-12 01:57] VITALS: BP 150/60
[2019-02-12] MEDS: PANTOPROZOLE 40MG TABLET PO SCH (05:14)
[2019-02-12] MEDS: CARVEDILOL 25 MG TABLET PO SCH (05:14)
[2019-02-12] MEDS: HEPARIN 5,000 UNITS/ML, 1ML SQ SCH (05:14)
[2019-02-12] MEDS: GUAIFENESIN 200 MG TABLET PO SCH (05:15)
[2019-02-12 05:24] VITALS: BP 166/75
[2019-02-12 05:45] LABS: ALBUMIN 2.8 g/dL (3.4-5.0); ANION GAP 7 mmol/L (5-15); CALCIUM 8.2 mg/dL (8.5-10.1); CHLORIDE 103 mmol/L (98-107)
[2019-02-12 05:51] LABS: ALANINE AMINOTRANSFERASE 15 U/L (12-78); ALKALINE PHOSPHATASE 73 U/L (45-117); BILIRUBIN,TOTAL 0.5 mg/dL (0.2-1.0); CREATININE 2.31 mg/dL (0.55-1.02); TOTAL PROTEIN 5.9 g/dL (6.4-8.2)
[2019-02-12] MEDS ORDERED: FUROSEMIDE 40 MG TABLET PO SCH (08:00)
[2019-02-12] MEDS: ISOSORBIDE DINITRATE 10 MG TABLET PO SCH (09:00)
[2019-02-12] MEDS: DOCUSATE 100 MG CAPSULE PO SCH (09:00)
[2019-02-12] MEDS: DONEPEZIL 5 MG TABLET PO SCH (09:34)
[2019-02-12] MEDS: DOXYCYCLINE 100MG TABLET PO SCH (09:34)
[2019-02-12] MEDS: ALLOPURINOL 100 MG TABLET PO SCH (09:35)
[2019-02-12] MEDS: SERTRALINE 50MG TABLET PO SCH (09:35)
[2019-02-12] MEDS: ASPIRIN 81 MG TABLET EC PO SCH (09:36)
[2019-02-12] MEDS: AMOXICILLIN/CLAV 875-125MG TABLET PO SCH (09:36)
[2019-02-12] MEDS: AMLODIPINE 10 MG TAB PO SCH (09:37)
[2019-02-12] MEDS: INSULIN LISPRO 100 UNITS/ML, PEN SQ-INSULIN SCH (09:44)
[2019-02-12] MEDS ORDERED: PRED20TA PO (12:03)
[2019-02-12] MEDS ORDERED: HYDR-3342 PO (12:03)
[2019-02-12] MEDS ORDERED: GUAI200T3 PO (12:03)
[2019-02-12] MEDS ORDERED: AMOX1TAB12 PO (12:03)
[2019-02-12] MEDS ORDERED: DOXY100T PO (12:03)
[2019-02-12] MEDS ORDERED: FURO40TA6 PO (12:03)
[2019-02-12 13:57] VITALS: BP 166/74
== END 2019-02-12 14:14 | disposition home health service (06) | DRG 177 ==
LOC: ED 14:53 → EDIP 16:48 → 5SO 20:40
PROVIDERS: ADMIT Internal Medicine; ATTEND Internal Medicine
PROC: 5A09357 Assistance with Respiratory Ventilation, Less than 24 Consecutive Hours, Continuous Positive Airway Pressure (ICD-10-PCS; principal; 2019-02-07)
DX: J15.6 Pneumonia due to other Gram-negative bacteria (principal); N17.0 Acute kidney failure with tubular necrosis; I50.33 Acute on chronic diastolic (congestive) heart failure; J96.21 Acute and chronic respiratory failure with hypoxia; J44.1 Chronic obstructive pulmonary disease with (acute) exacerbation; J44.0 Chronic obstructive pulmonary disease with (acute) lower respiratory infection; I13.0 Hypertensive heart and chronic kidney disease with heart failure and stage 1 through stage 4 chronic kidney disease, or unspecified chronic kidney disease; J18.9 Pneumonia, unspecified organism; I25.2 Old myocardial infarction; N18.3 Chronic kidney disease, stage 3 (moderate); E78.5 Hyperlipidemia, unspecified; D64.9 Anemia, unspecified; K21.9 Gastro-esophageal reflux disease without esophagitis; E11.22 Type 2 diabetes mellitus with diabetic chronic kidney disease; M10.9 Gout, unspecified; R53.81 Other malaise; R25.1 Tremor, unspecified; Z66 Do not resuscitate; Z79.899 Other long term (current) drug therapy; Z99.81 Dependence on supplemental oxygen
CPT/HCPCS: 36415; 36600; 71046; 76770; 80048; 80053; 82040; 82803; 82962; 83036; 83605; 83735; 83880; 84100; 84484; 85025; 87040; 87070; 87205; 93005; 94640; 94660; 96374; 99285; G0378; J1644; J1940; J2405; J2543; J7620; J1815; J2930; J7512

== ENCOUNTER 2019-03-15 18:06 | Inpatient (IN) | payer MEDICARE ==
[~2019-03-15] VITALS: Ht 165.1 cm; Wt 93.3 kg
[~2019-03-15 18:06] MED LIST changes: +DOXY100T PO; +FURO40TA6 PO; +GUAI200T3 PO; +HYDR-3342 PO; -NITR0.4T SL; +NITR0.4T41 SL
--- NOTE | 2019-03-15 18:06 | NUR ---
BIB EMS for SOB x 1 day. Per EMS 74% on 4LPM NC at home. Pt was given 0.4 mg ntg and 1 albuterol tx en route. Pt speaking 3-4 word sentences.
--- NOTE | 2019-03-15 18:18 | NUR ---
Dr. Borrego at bedside to evaluate pt.
--- NOTE | 2019-03-15 18:29 | NUR ---
Lab at bedside.
[2019-03-15] MEDS ORDERED: methylPREDNISolone SOD SUCC 125 MG/2 ML IVP ONE (18:30)
[2019-03-15 19:06] LABS: INTERNATIONAL NORMALIZED RATIO 1.08 (0.93-1.1); PROTHROMBIN TIME 11.3 Seconds (9.6-11.5)
[2019-03-15 19:09] LABS: ALANINE AMINOTRANSFERASE 13 U/L (12-78); ALBUMIN 3.7 g/dL (3.4-5.0); ANION GAP 7 mmol/L (5-15); CALCIUM 9.3 mg/dL (8.5-10.1); CHLORIDE 108 mmol/L (98-107); CREATININE 3.04 mg/dL (0.55-1.02)
[2019-03-15 19:13] LABS: ALKALINE PHOSPHATASE 109 U/L (45-117); BILIRUBIN,TOTAL 0.5 mg/dL (0.2-1.0); TOTAL PROTEIN 7.2 g/dL (6.4-8.2); TROPONIN I < 0.015 ng/mL (0.000-0.045)
[2019-03-15] MEDS ORDERED: methylPREDNISolone SOD SUCC 125 MG/2 ML ONE (19:14)
--- NOTE | 2019-03-15 19:32 | NUR ---
Dr. Borrego at bedside to discuss ED findings and POC.
[2019-03-15 19:38] LABS: MEAN CORPUSCULAR HEMOGLOBIN 30.2 pg (27.0-34.8); MEAN CORPUSCULAR HGB CONC 32.7 g/dL (32.4-35.8); MEAN CORPUSCULAR VOLUME 92.1 fL (80-100); MEAN PLATELET VOLUME 6.7 fL (7.4-10.4); PLATELET COUNT 446 x10^3/uL (130-400); RED CELL DISTRIBUTION WIDTH 17.1 % (9.6-15.2)
[2019-03-15 19:40] LABS: MD YES
[2019-03-15 19:46] LABS: LYMPH#(MANUAL) 0.59 x10^3/uL (1-3.4); LYMPHS% (MANUAL) 14 % (22-44); MONOS#(MANUAL) 0.21 x10^3/uL (0.3-2.7); MONOS% (MANUAL) 5 % (2-9); REACTIVE LYMPHS # (MANUAL) 0.17 x10^3/uL (0-0); REACTIVE LYMPHS % (MANUAL) 4 % (0-0); SEG#(MANUAL) 3.23 x10^3/uL (1.8-6.8); SEGS% (MANUAL) 77 % (42-75)
[2019-03-15 19:48] LABS: ANISOCYTOSIS 1+
[2019-03-15 19:49] LABS: <PLATELET ESTIMATE> INCREASED; <PLT MORPHOLOGY> NORMAL PLT MORPH
[2019-03-15] MEDS ORDERED: FUROSEMIDE 40 MG/4 ML IV ONE (20:00)
--- NOTE | 2019-03-15 20:15 | NUR ---
Telephone SBAR report given to RNRomi. Pt and made aware of new room assignment.
[2019-03-15] MEDS ORDERED: FUROSEMIDE 40 MG/4 ML ONE (20:19)
--- NOTE | 2019-03-15 20:23 | NUR ---
Pt medicated per Ralph HUFFMAN APRN, at bedside to evaluate pt for admission.
[2019-03-15 22:00] VITALS: BP 153/74
[2019-03-15] MEDS ORDERED: POLYETHYLENE GLYCOL 17 GM PACKET PO PRN (22:00)
[2019-03-15] MEDS ORDERED: BISACODYL 10 MG SUPP PR PRN (22:00)
[2019-03-15] MEDS ORDERED: FUROSEMIDE 20 MG/2 ML IV ONE (23:30)
[2019-03-15] MEDS: SODIUM CHLORIDE FLUSH 10ML SYR IVF SCH (23:59)
[2019-03-15] MEDS: FERROUS GLUCONATE 324 MG TABLET PO SCH (23:59)
[2019-03-16] MEDS: ATORVASTATIN 10 MG TABLET PO SCH ×2 (00:01→20:45)
[2019-03-16] MEDS: ERGOCALCIFEROL 50,000 UNIT CAPSULE PO SCH (00:01)
[2019-03-16] MEDS: HEPARIN 5,000 UNITS/ML, 1ML SQ SCH ×3 (00:01→16:07)
[2019-03-16] MEDS: ALLOPURINOL 100 MG TABLET PO SCH ×3 (00:01→20:45)
[2019-03-16] MEDS: MELATONIN 5 MG TABLET PO SCH ×2 (00:01→20:45)
[2019-03-16] MEDS: cloniDINE 0.3MG PATCH TD SCH (00:02)
[2019-03-16] MEDS: ACETAMINOPHEN 325 MG TABLET PO PRN ×2 (00:03→11:15)
[2019-03-16 00:46] VITALS: BP 151/77
[2019-03-16] MEDS: CARVEDILOL 25 MG TABLET PO SCH ×2 (05:41→16:08)
[2019-03-16] MEDS: PANTOPROZOLE 40MG TABLET PO SCH (05:41)
[2019-03-16 06:12] LABS: MEAN CORPUSCULAR HEMOGLOBIN 30.1 pg (27.0-34.8); MEAN CORPUSCULAR VOLUME 91.3 fL (80-100); MEAN PLATELET VOLUME 6.4 fL (7.4-10.4); PLATELET COUNT 393 x10^3/uL (130-400)
[2019-03-16 06:24] LABS: CHLORIDE 109 mmol/L (98-107)
[2019-03-16 06:35] LABS: ALANINE AMINOTRANSFERASE 12 U/L (12-78); ALBUMIN 3.1 g/dL (3.4-5.0); ALKALINE PHOSPHATASE 102 U/L (45-117); ANION GAP 6 mmol/L (5-15); BILIRUBIN,TOTAL 0.4 mg/dL (0.2-1.0); CALCIUM 8.9 mg/dL (8.5-10.1); CREATININE 2.96 mg/dL (0.55-1.02); TOTAL PROTEIN 6.4 g/dL (6.4-8.2); TROPONIN I < 0.015 ng/mL (0.000-0.045)
[2019-03-16 06:51] LABS: MD YES
[2019-03-16 06:54] LABS: LYMPH#(MANUAL) 0.29 x10^3/uL (1-3.4); LYMPHS% (MANUAL) 16 % (22-44); MONOS#(MANUAL) 0.02 x10^3/uL (0.3-2.7); MONOS% (MANUAL) 1 % (2-9); NRBC % (MANUAL) 1 % (0-1); SEG#(MANUAL) 1.49 x10^3/uL (1.8-6.8); SEGS% (MANUAL) 83 % (42-75)
[2019-03-16 06:55] LABS: <PLATELET ESTIMATE> ADEQUATE; <PLT MORPHOLOGY> NORMAL PLT MORPH; ANISOCYTOSIS 1+; TARGET CELLS 1+
[2019-03-16] MEDS ORDERED: FUROSEMIDE 20 MG/2 ML IV SCH ×2 (07:30→17:00)
[2019-03-16] MEDS ORDERED: ALBUTEROL/IPRATROPIUM 2.5MG/0.5MG, 3 ML HHN SCH (08:00)
[2019-03-16] MEDS: [UNRECOGNIZED DRUG - REMARK] MC SCH ×2 (08:27→16:00)
[2019-03-16] MEDS ORDERED: ISOSORBIDE DINITRATE 20 MG TABLET ONE ×2 (08:31→20:37)
[2019-03-16 08:36] VITALS: BP 157/63
[2019-03-16] MEDS: GUAIFENESIN 200 MG TABLET PO SCH ×4 (08:44→20:45)
[2019-03-16] MEDS: CYANOCOBALAMIN 1,000 MCG TABLET PO SCH (08:44)
[2019-03-16] MEDS: LACTOBACILLUS CHEW TABLET PO SCH ×4 (08:44→20:45)
[2019-03-16] MEDS: SENNA/DOCUSATE TABLET PO SCH (08:44)
[2019-03-16] MEDS: DONEPEZIL 5 MG TABLET PO SCH (08:44)
[2019-03-16] MEDS: AMLODIPINE 10 MG TAB PO SCH (08:44)
[2019-03-16] MEDS: SERTRALINE 50MG TABLET PO SCH (08:45)
[2019-03-16] MEDS: SODIUM CHLORIDE FLUSH 10ML SYR IVF SCH ×2 (08:45→20:43)
[2019-03-16] MEDS: ISOSORBIDE DINITRATE 10 MG TABLET PO SCH ×4 (08:45→20:44)
[2019-03-16 09:00] LABS: MEAN CORPUSCULAR HEMOGLOBIN 30.5 pg (27.0-34.8); MEAN CORPUSCULAR HGB CONC 33.3 g/dL (32.4-35.8); MEAN CORPUSCULAR VOLUME 91.4 fL (80-100); MEAN PLATELET VOLUME 6.8 fL (7.4-10.4); PLATELET COUNT 363 x10^3/uL (130-400); RED BLOOD COUNT 3.38 x10^6/uL (3.82-5.3); RED CELL DISTRIBUTION WIDTH 16.8 % (9.6-15.2)
[2019-03-16] MEDS ORDERED: ASPIRIN 81 MG TABLET EC PO SCH (09:00)
[2019-03-16] MEDS ORDERED: FUROSEMIDE 40 MG/4 ML ONE (09:27)
[2019-03-16] MEDS ORDERED: methylPREDNISolone SOD SUCC 125 MG/2 ML ONE (09:27)
[2019-03-16] MEDS: methylPREDNISolone SOD SUCC 125 MG/2 ML IVPush SCH ×4 (09:54→20:45)
[2019-03-16] MEDS: FUROSEMIDE 40 MG/4 ML IV SCH ×2 (09:55→16:08)
[2019-03-16 10:03] LABS: MD YES
[2019-03-16 10:12] LABS: ANISOCYTOSIS 1+; LYMPHS% (MANUAL) 11 % (22-44); MONOS#(MANUAL) 0.02 x10^3/uL (0.3-2.7); MONOS% (MANUAL) 1 % (2-9); SEG#(MANUAL) 1.58 x10^3/uL (1.8-6.8); SEGS% (MANUAL) 88 % (42-75)
[2019-03-16 10:13] LABS: <PLATELET ESTIMATE> ADEQUATE; <PLT MORPHOLOGY> NORMAL PLT MORPH
[2019-03-16] MEDS: LIDODERM 5% PATCH TD SCH (11:15)
[2019-03-16] MEDS: CEFTRIAXONE PMX 1GM/50ML 50 ML IV SCH (11:51)
[2019-03-16] MEDS: DOXYCYCLINE 100 MG in DEXTROSE 5% 250 ML IV SCH ×2 (12:27→23:30)
[2019-03-16 12:29] LABS: TROPONIN I < 0.015 ng/mL (0.000-0.045)
[2019-03-16 13:48] VITALS: BP 167/75
[2019-03-16] MEDS: ONDANSETRON ODT 4 MG PO PRN (13:48)
[2019-03-16] MEDS: ALBUTEROL/IPRATROPIUM 2.5MG/0.5MG, 3 ML HHN SCH ×3 (14:12→23:00)
[2019-03-16 19:24] VITALS: BP 152/68
[2019-03-16] MEDS ORDERED: CALCIUM CARBONATE 500 MG TAB.CHEW ONE (20:08)
[2019-03-16] MEDS ORDERED: CALCIUM CARBONATE 500 MG TAB.CHEW PO PRN (20:30)
[2019-03-17] MEDS: [UNRECOGNIZED DRUG - REMARK] MC SCH ×3 (00:30→15:17)
[2019-03-17 02:42] VITALS: BP 156/65
[2019-03-17] MEDS: methylPREDNISolone SOD SUCC 125 MG/2 ML IVPush SCH ×4 (02:47→21:08)
[2019-03-17] MEDS: ALBUTEROL/IPRATROPIUM 2.5MG/0.5MG, 3 ML HHN SCH ×6 (03:00→23:00)
[2019-03-17 06:12] LABS: CALCIUM 8.3 mg/dL (8.5-10.1); CHLORIDE 108 mmol/L (98-107)
[2019-03-17 06:15] LABS: MEAN PLATELET VOLUME 6.7 fL (7.4-10.4); PLATELET COUNT 361 x10^3/uL (130-400)
[2019-03-17 06:16] LABS: ALANINE AMINOTRANSFERASE 10 U/L (12-78); ALBUMIN 3.1 g/dL (3.4-5.0); ALKALINE PHOSPHATASE 90 U/L (45-117); ANION GAP 5 mmol/L (5-15); BILIRUBIN,TOTAL 0.4 mg/dL (0.2-1.0); CREATININE 2.66 mg/dL (0.55-1.02); MD YES; MEAN CORPUSCULAR HEMOGLOBIN 30.6 pg (27.0-34.8); MEAN CORPUSCULAR HGB CONC 33.1 g/dL (32.4-35.8); MEAN CORPUSCULAR VOLUME 92.5 fL (80-100); RED BLOOD COUNT 3.27 x10^6/uL (3.82-5.3); TOTAL PROTEIN 6.2 g/dL (6.4-8.2)
[2019-03-17] MEDS: CARVEDILOL 25 MG TABLET PO SCH ×2 (06:17→17:38)
[2019-03-17] MEDS: PANTOPROZOLE 40MG TABLET PO SCH (06:17)
[2019-03-17] MEDS: GUAIFENESIN 200 MG TABLET PO SCH ×4 (06:18→20:32)
[2019-03-17 06:33] LABS: ANISOCYTOSIS 1+; LYMPH#(MANUAL) 0.19 x10^3/uL (1-3.4); LYMPHS% (MANUAL) 5 % (22-44); MONOS#(MANUAL) 0.04 x10^3/uL (0.3-2.7); MONOS% (MANUAL) 1 % (2-9); SEG#(MANUAL) 3.57 x10^3/uL (1.8-6.8); SEGS% (MANUAL) 94 % (42-75)
[2019-03-17 06:35] LABS: <PLATELET ESTIMATE> ADEQUATE; <PLT MORPHOLOGY> NORMAL PLT MORPH
[2019-03-17] MEDS: SODIUM CHLORIDE FLUSH 10ML SYR IVF SCH ×2 (08:48→21:18)
[2019-03-17] MEDS: HEPARIN 5,000 UNITS/ML, 1ML SQ SCH ×3 (08:48→17:39)
[2019-03-17] MEDS: LACTOBACILLUS CHEW TABLET PO SCH ×3 (08:49→20:32)
[2019-03-17] MEDS: ALLOPURINOL 100 MG TABLET PO SCH ×2 (08:49→20:33)
[2019-03-17] MEDS: DONEPEZIL 5 MG TABLET PO SCH (08:49)
[2019-03-17] MEDS: SERTRALINE 50MG TABLET PO SCH (08:49)
[2019-03-17] MEDS: CYANOCOBALAMIN 1,000 MCG TABLET PO SCH (08:49)
[2019-03-17] MEDS: AMLODIPINE 10 MG TAB PO SCH (08:49)
[2019-03-17] MEDS: SENNA/DOCUSATE TABLET PO SCH (08:49)
[2019-03-17] MEDS: FUROSEMIDE 40 MG/4 ML IV SCH ×3 (08:54→21:17)
[2019-03-17 08:55] VITALS: BP 169/68
[2019-03-17] MEDS: ISOSORBIDE DINITRATE 10 MG TABLET PO SCH ×3 (10:45→20:32)
[2019-03-17 11:12] LABS: MICROSCOPIC AUTO
[2019-03-17 11:14] LABS: CULTURE INDICATED? NO
[2019-03-17] MEDS: LIDODERM 5% PATCH TD SCH (11:30)
[2019-03-17] MEDS: CEFTRIAXONE PMX 1GM/50ML 50 ML IV SCH (11:47)
[2019-03-17] MEDS: DOXYCYCLINE 100 MG in DEXTROSE 5% 250 ML IV SCH (12:52)
[2019-03-17 14:00] VITALS: BP 163/62
[2019-03-17] MEDS: ONDANSETRON ODT 4 MG PO PRN ×2 (16:10→20:33)
[2019-03-17 20:13] VITALS: BP 161/88
[2019-03-17] MEDS: MELATONIN 5 MG TABLET PO SCH (20:33)
[2019-03-17] MEDS: ATORVASTATIN 10 MG TABLET PO SCH (20:33)
[2019-03-17 21:15] VITALS: BP 158/64
[2019-03-17] MEDS: FERROUS GLUCONATE 324 MG TABLET PO SCH (21:17)
[2019-03-18 00:11] VITALS: BP 153/71
[2019-03-18] MEDS: [UNRECOGNIZED DRUG - REMARK] MC SCH ×3 (00:30→14:55)
[2019-03-18] MEDS: DOXYCYCLINE 100MG TABLET PO SCH ×4 (00:31→22:00)
[2019-03-18] MEDS: HEPARIN 5,000 UNITS/ML, 1ML SQ SCH ×3 (00:31→21:48)
[2019-03-18] MEDS: ALBUTEROL/IPRATROPIUM 2.5MG/0.5MG, 3 ML HHN SCH ×6 (02:39→22:51)
[2019-03-18] MEDS: methylPREDNISolone SOD SUCC 125 MG/2 ML IVPush SCH ×3 (04:00→14:08)
[2019-03-18 05:36] LABS: MEAN CORPUSCULAR HEMOGLOBIN 28.8 pg (27.0-34.8); MEAN CORPUSCULAR HGB CONC 31.1 g/dL (32.4-35.8); MEAN CORPUSCULAR VOLUME 92.8 fL (80-100); PLATELET COUNT 325 x10^3/uL (130-400); RED CELL DISTRIBUTION WIDTH 16.9 % (9.6-15.2)
[2019-03-18 05:41] LABS: ALBUMIN 3.1 g/dL (3.4-5.0); ANION GAP 9 mmol/L (5-15); CALCIUM 8.4 mg/dL (8.5-10.1); CHLORIDE 106 mmol/L (98-107)
[2019-03-18 05:47] LABS: ALANINE AMINOTRANSFERASE 12 U/L (12-78); ALKALINE PHOSPHATASE 93 U/L (45-117); BILIRUBIN,TOTAL 0.6 mg/dL (0.2-1.0); CREATININE 2.74 mg/dL (0.55-1.02)
[2019-03-18 05:53] VITALS: BP 163/70
[2019-03-18] MEDS: CARVEDILOL 25 MG TABLET PO SCH ×2 (05:57→17:54)
[2019-03-18] MEDS: PANTOPROZOLE 40MG TABLET PO SCH (05:57)
[2019-03-18] MEDS: GUAIFENESIN 200 MG TABLET PO SCH ×4 (05:57→21:54)
[2019-03-18 05:58] LABS: MD YES
[2019-03-18 06:03] LABS: ANISOCYTOSIS 1+; LYMPH#(MANUAL) 0.27 x10^3/uL (1-3.4); LYMPHS% (MANUAL) 5 % (22-44); MONOS#(MANUAL) 0.48 x10^3/uL (0.3-2.7); MONOS% (MANUAL) 9 % (2-9); POLYCHROMASIA 1+; SEG#(MANUAL) 4.56 x10^3/uL (1.8-6.8); SEGS% (MANUAL) 86 % (42-75)
[2019-03-18 06:04] LABS: <PLATELET ESTIMATE> ADEQUATE; <PLT MORPHOLOGY> NORMAL PLT MORPH
[2019-03-18 06:05] LABS: TARGET CELLS 1+
[2019-03-18 08:00] VITALS: BP 142/68
[2019-03-18] MEDS: SENNA/DOCUSATE TABLET PO SCH (09:00)
[2019-03-18] MEDS: FUROSEMIDE 40 MG/4 ML IV SCH ×3 (10:44→21:48)
[2019-03-18] MEDS: SERTRALINE 50MG TABLET PO SCH (10:45)
[2019-03-18] MEDS: DONEPEZIL 5 MG TABLET PO SCH (10:45)
[2019-03-18] MEDS: BUMETANIDE 1 MG TABLET PO SCH (10:45)
[2019-03-18] MEDS: ACETAMINOPHEN 325 MG TABLET PO PRN ×2 (10:45→21:54)
[2019-03-18] MEDS: SODIUM CHLORIDE FLUSH 10ML SYR IVF SCH ×2 (10:45→21:48)
[2019-03-18] MEDS: CYANOCOBALAMIN 1,000 MCG TABLET PO SCH (10:46)
[2019-03-18] MEDS: ISOSORBIDE DINITRATE 10 MG TABLET PO SCH ×3 (10:46→21:52)
[2019-03-18] MEDS: LACTOBACILLUS CHEW TABLET PO SCH ×3 (10:46→21:53)
[2019-03-18] MEDS: AMOXICILLIN/CLAV 875-125MG TABLET PO SCH ×2 (10:46→21:51)
[2019-03-18] MEDS: ALLOPURINOL 100 MG TABLET PO SCH ×2 (10:46→21:54)
[2019-03-18] MEDS: AMLODIPINE 10 MG TAB PO SCH (10:46)
[2019-03-18] MEDS: LIDODERM 5% PATCH TD SCH (10:47)
[2019-03-18] MEDS: ONDANSETRON ODT 4 MG PO PRN ×2 (10:52→22:01)
[2019-03-18 13:30] VITALS: BP 164/79
[2019-03-18 19:52] VITALS: BP 162/72
[2019-03-18] MEDS ORDERED: ISOSORBIDE DINITRATE 20 MG TABLET ONE (21:45)
[2019-03-18] MEDS: MELATONIN 5 MG TABLET PO SCH (21:53)
[2019-03-18] MEDS: ATORVASTATIN 10 MG TABLET PO SCH (21:53)
[2019-03-19] MEDS: [UNRECOGNIZED DRUG - REMARK] MC SCH ×3 (01:19→15:11)
[2019-03-19 02:12] VITALS: BP 151/70
[2019-03-19] MEDS: ALBUTEROL/IPRATROPIUM 2.5MG/0.5MG, 3 ML HHN SCH ×7 (03:16→22:00)
[2019-03-19 04:00] LABS: MEAN CORPUSCULAR HEMOGLOBIN 30.1 pg (27.0-34.8); MEAN CORPUSCULAR VOLUME 94.1 fL (80-100); MEAN PLATELET VOLUME 6.6 fL (7.4-10.4); PLATELET COUNT 361 x10^3/uL (130-400); RED BLOOD COUNT 3.58 x10^6/uL (3.82-5.3); RED CELL DISTRIBUTION WIDTH 17.4 % (9.6-15.2)
[2019-03-19 04:07] LABS: ALBUMIN 2.9 g/dL (3.4-5.0); ANION GAP 6 mmol/L (5-15); CALCIUM 8.1 mg/dL (8.5-10.1); CHLORIDE 105 mmol/L (98-107)
[2019-03-19 04:11] LABS: ALANINE AMINOTRANSFERASE 16 U/L (12-78); ALKALINE PHOSPHATASE 86 U/L (45-117); BILIRUBIN,TOTAL 0.4 mg/dL (0.2-1.0); CREATININE 2.54 mg/dL (0.55-1.02); TOTAL PROTEIN 5.8 g/dL (6.4-8.2)
[2019-03-19 04:13] LABS: MD YES
[2019-03-19 04:16] LABS: LYMPH#(MANUAL) 1.34 x10^3/uL (1-3.4); LYMPHS% (MANUAL) 21 % (22-44); MONOS#(MANUAL) 0.58 x10^3/uL (0.3-2.7); MONOS% (MANUAL) 9 % (2-9); SEG#(MANUAL) 4.48 x10^3/uL (1.8-6.8); SEGS% (MANUAL) 70 % (42-75)
[2019-03-19 04:17] LABS: ANISOCYTOSIS 1+; TARGET CELLS 1+
[2019-03-19 04:18] LABS: <PLATELET ESTIMATE> ADEQUATE; <PLT MORPHOLOGY> NORMAL PLT MORPH
[2019-03-19] MEDS: GUAIFENESIN 200 MG TABLET PO SCH ×4 (06:10→22:07)
[2019-03-19] MEDS: CARVEDILOL 25 MG TABLET PO SCH ×2 (06:10→17:03)
[2019-03-19] MEDS: PANTOPROZOLE 40MG TABLET PO SCH (06:10)
[2019-03-19 06:11] VITALS: BP 152/71
[2019-03-19] MEDS: HEPARIN 5,000 UNITS/ML, 1ML SQ SCH ×3 (06:11→22:07)
[2019-03-19] MEDS: ONDANSETRON ODT 4 MG PO PRN (06:20)
[2019-03-19 07:50] VITALS: BP 161/74
[2019-03-19] MEDS: SENNA/DOCUSATE TABLET PO SCH (08:10)
[2019-03-19] MEDS ORDERED: ISOSORBIDE DINITRATE 20 MG TABLET ONE (08:12)
[2019-03-19] MEDS: FUROSEMIDE 40 MG/4 ML IV SCH ×2 (08:16→22:06)
[2019-03-19] MEDS: ALLOPURINOL 100 MG TABLET PO SCH ×2 (08:17→22:08)
[2019-03-19] MEDS: AMLODIPINE 10 MG TAB PO SCH (08:17)
[2019-03-19] MEDS: DOXYCYCLINE 100MG TABLET PO SCH ×2 (08:17→22:08)
[2019-03-19] MEDS: BUMETANIDE 1 MG TABLET PO SCH (08:17)
[2019-03-19] MEDS: SODIUM CHLORIDE FLUSH 10ML SYR IVF SCH ×2 (08:17→22:06)
[2019-03-19] MEDS: DONEPEZIL 5 MG TABLET PO SCH (08:17)
[2019-03-19] MEDS: CYANOCOBALAMIN 1,000 MCG TABLET PO SCH (08:17)
[2019-03-19] MEDS: AMOXICILLIN/CLAV 875-125MG TABLET PO SCH ×2 (08:17→22:08)
[2019-03-19] MEDS: ISOSORBIDE DINITRATE 10 MG TABLET PO SCH ×3 (08:18→22:08)
[2019-03-19] MEDS: SERTRALINE 50MG TABLET PO SCH (08:18)
[2019-03-19] MEDS: LACTOBACILLUS CHEW TABLET PO SCH ×3 (08:19→22:07)
[2019-03-19] MEDS: LIDODERM 5% PATCH TD SCH (10:59)
[2019-03-19 13:53] VITALS: BP 145/68
[2019-03-19] MEDS ORDERED: ISOSORBIDE MONONITRATE 20 MG TABLET ONE (17:04)
[2019-03-19 19:51] VITALS: BP 140/58
[2019-03-19] MEDS: FERROUS GLUCONATE 324 MG TABLET PO SCH (22:07)
[2019-03-19] MEDS: ACETAMINOPHEN 325 MG TABLET PO PRN (22:07)
[2019-03-19] MEDS: MELATONIN 5 MG TABLET PO SCH (22:07)
[2019-03-19] MEDS: ATORVASTATIN 10 MG TABLET PO SCH (22:08)
[2019-03-20] VITALS (7 sets, daily range): BP systolic 147–170; BP diastolic 62–72
[2019-03-20] MEDS: [UNRECOGNIZED DRUG - REMARK] MC SCH ×4 (00:35→23:47)
[2019-03-20 06:09] LABS: CALCIUM 8.5 mg/dL (8.5-10.1); CHLORIDE 104 mmol/L (98-107)
[2019-03-20] MEDS: PANTOPROZOLE 40MG TABLET PO SCH (06:13)
[2019-03-20] MEDS: GUAIFENESIN 200 MG TABLET PO SCH ×4 (06:13→20:41)
[2019-03-20] MEDS: CARVEDILOL 25 MG TABLET PO SCH ×2 (06:14→18:33)
[2019-03-20 06:15] LABS: ALANINE AMINOTRANSFERASE 13 U/L (12-78); ALBUMIN 2.7 g/dL (3.4-5.0); ALKALINE PHOSPHATASE 71 U/L (45-117); ANION GAP 8 mmol/L (5-15); BILIRUBIN,TOTAL 0.6 mg/dL (0.2-1.0); TOTAL PROTEIN 5.4 g/dL (6.4-8.2)
[2019-03-20] MEDS: HEPARIN 5,000 UNITS/ML, 1ML SQ SCH ×3 (06:15→20:47)
[2019-03-20] MEDS: ALBUTEROL/IPRATROPIUM 2.5MG/0.5MG, 3 ML HHN SCH ×5 (07:10→22:00)
[2019-03-20] MEDS: ALLOPURINOL 100 MG TABLET PO SCH ×2 (09:35→20:40)
[2019-03-20] MEDS: SENNA/DOCUSATE TABLET PO SCH (09:35)
[2019-03-20] MEDS: SERTRALINE 50MG TABLET PO SCH (09:35)
[2019-03-20] MEDS: BUMETANIDE 1 MG TABLET PO SCH (09:35)
[2019-03-20] MEDS: AMLODIPINE 10 MG TAB PO SCH (09:35)
[2019-03-20] MEDS: AMOXICILLIN/CLAV 875-125MG TABLET PO SCH ×2 (09:35→20:40)
[2019-03-20] MEDS: CYANOCOBALAMIN 1,000 MCG TABLET PO SCH (09:35)
[2019-03-20] MEDS: LACTOBACILLUS CHEW TABLET PO SCH ×3 (09:36→20:40)
[2019-03-20] MEDS: DONEPEZIL 5 MG TABLET PO SCH (09:36)
[2019-03-20] MEDS: SODIUM CHLORIDE FLUSH 10ML SYR IVF SCH ×2 (09:37→20:48)
[2019-03-20] MEDS: FUROSEMIDE 40 MG/4 ML IV SCH ×2 (09:51→20:39)
[2019-03-20] MEDS: ISOSORBIDE DINITRATE 10 MG TABLET PO SCH ×3 (09:51→20:40)
[2019-03-20] MEDS: DOXYCYCLINE 100MG TABLET PO SCH ×2 (09:51→20:40)
[2019-03-20] MEDS: LIDODERM 5% PATCH TD SCH (11:35)
[2019-03-20] MEDS: ACETAMINOPHEN 325 MG TABLET PO PRN ×2 (11:35→21:05)
[2019-03-20] MEDS: MELATONIN 5 MG TABLET PO SCH (20:40)
[2019-03-20] MEDS: ATORVASTATIN 10 MG TABLET PO SCH (20:48)
[2019-03-21 00:45] VITALS: BP 146/55
[2019-03-21] MEDS: HEPARIN 5,000 UNITS/ML, 1ML SQ SCH ×3 (05:04→21:21)
[2019-03-21] MEDS: ACETAMINOPHEN 325 MG TABLET PO PRN (05:09)
[2019-03-21] MEDS: GUAIFENESIN 200 MG TABLET PO SCH ×4 (05:09→21:18)
[2019-03-21] MEDS: PANTOPROZOLE 40MG TABLET PO SCH (05:10)
[2019-03-21] MEDS: CARVEDILOL 25 MG TABLET PO SCH ×2 (05:10→18:25)
[2019-03-21] MEDS: ONDANSETRON ODT 4 MG PO PRN ×3 (05:20→21:28)
[2019-03-21 05:57] LABS: ALBUMIN 2.9 g/dL (3.4-5.0); ANION GAP 3 mmol/L (5-15); CALCIUM 8.9 mg/dL (8.5-10.1); CHLORIDE 104 mmol/L (98-107)
[2019-03-21 06:00] LABS: ALANINE AMINOTRANSFERASE 21 U/L (12-78); ALKALINE PHOSPHATASE 74 U/L (45-117); BILIRUBIN,TOTAL 0.6 mg/dL (0.2-1.0); CREATININE 1.94 mg/dL (0.55-1.02); TOTAL PROTEIN 5.7 g/dL (6.4-8.2)
[2019-03-21] MEDS: ALBUTEROL/IPRATROPIUM 2.5MG/0.5MG, 3 ML HHN SCH ×5 (07:05→22:00)
[2019-03-21 07:27] VITALS: BP 166/74
[2019-03-21] MEDS: [UNRECOGNIZED DRUG - REMARK] MC SCH (08:30)
[2019-03-21] MEDS: SODIUM CHLORIDE FLUSH 10ML SYR IVF SCH ×2 (09:00→21:32)
[2019-03-21] MEDS: CYANOCOBALAMIN 1,000 MCG TABLET PO SCH (09:00)
[2019-03-21] MEDS: FUROSEMIDE 40 MG/4 ML IV SCH ×2 (10:39→21:18)
[2019-03-21] MEDS: AMOXICILLIN/CLAV 875-125MG TABLET PO SCH ×2 (10:39→21:20)
[2019-03-21] MEDS: LACTOBACILLUS CHEW TABLET PO SCH ×3 (10:39→21:19)
[2019-03-21] MEDS: AMLODIPINE 10 MG TAB PO SCH (10:40)
[2019-03-21] MEDS: SENNA/DOCUSATE TABLET PO SCH (10:40)
[2019-03-21] MEDS: ISOSORBIDE DINITRATE 10 MG TABLET PO SCH ×3 (10:41→21:19)
[2019-03-21] MEDS: BUMETANIDE 1 MG TABLET PO SCH (10:41)
[2019-03-21] MEDS: DOXYCYCLINE 100MG TABLET PO SCH ×2 (10:41→21:19)
[2019-03-21] MEDS: DONEPEZIL 5 MG TABLET PO SCH (10:42)
[2019-03-21] MEDS: ALLOPURINOL 100 MG TABLET PO SCH ×2 (10:42→21:18)
[2019-03-21] MEDS: SERTRALINE 50MG TABLET PO SCH (10:42)
[2019-03-21 15:59] VITALS: BP 154/69
[2019-03-21] MEDS: LIDODERM 5% PATCH TD SCH (16:38)
[2019-03-21 17:59] VITALS: BP 113/77
[2019-03-21 18:24] VITALS: BP 147/68
[2019-03-21 19:08] VITALS: BP 157/57
[2019-03-21] MEDS: MELATONIN 5 MG TABLET PO SCH (21:19)
[2019-03-21] MEDS: ATORVASTATIN 10 MG TABLET PO SCH (21:19)
[2019-03-21] MEDS: FERROUS GLUCONATE 324 MG TABLET PO SCH (21:32)
[2019-03-22 00:47] VITALS: BP 104/58
[2019-03-22] MEDS: ACETAMINOPHEN 325 MG TABLET PO PRN ×3 (03:18→22:13)
[2019-03-22] MEDS: ALBUTEROL/IPRATROPIUM 2.5MG/0.5MG, 3 ML HHN SCH ×6 (03:58→19:38)
[2019-03-22] MEDS: HEPARIN 5,000 UNITS/ML, 1ML SQ SCH ×3 (05:38→22:13)
[2019-03-22] MEDS: CARVEDILOL 25 MG TABLET PO SCH ×2 (05:38→16:55)
[2019-03-22] MEDS: PANTOPROZOLE 40MG TABLET PO SCH (05:39)
[2019-03-22] MEDS: GUAIFENESIN 200 MG TABLET PO SCH ×4 (05:39→19:56)
[2019-03-22 06:40] VITALS: BP 163/66
[2019-03-22] MEDS: BUMETANIDE 1 MG TABLET PO SCH (08:54)
[2019-03-22] MEDS: AMLODIPINE 10 MG TAB PO SCH (08:54)
[2019-03-22] MEDS: AMOXICILLIN/CLAV 875-125MG TABLET PO SCH (08:54)
[2019-03-22] MEDS: CYANOCOBALAMIN 1,000 MCG TABLET PO SCH (08:54)
[2019-03-22] MEDS: SENNA/DOCUSATE TABLET PO SCH (08:54)
[2019-03-22] MEDS: DOXYCYCLINE 100MG TABLET PO SCH ×2 (08:54→19:57)
[2019-03-22] MEDS: SERTRALINE 50MG TABLET PO SCH (08:54)
[2019-03-22] MEDS: LACTOBACILLUS CHEW TABLET PO SCH ×3 (08:55→19:57)
[2019-03-22] MEDS: SODIUM CHLORIDE FLUSH 10ML SYR IVF SCH ×2 (08:55→19:55)
[2019-03-22] MEDS: DONEPEZIL 5 MG TABLET PO SCH (08:55)
[2019-03-22] MEDS: FUROSEMIDE 40 MG/4 ML IV SCH (08:55)
[2019-03-22] MEDS: ISOSORBIDE DINITRATE 10 MG TABLET PO SCH ×3 (08:55→19:57)
[2019-03-22] MEDS: ALLOPURINOL 100 MG TABLET PO SCH ×2 (08:55→19:56)
[2019-03-22] MEDS: ONDANSETRON ODT 4 MG PO PRN ×3 (11:58→22:12)
[2019-03-22 12:46] LABS: ANION GAP 7 mmol/L (5-15); CALCIUM 8.9 mg/dL (8.5-10.1); CHLORIDE 104 mmol/L (98-107)
[2019-03-22 12:49] LABS: ALANINE AMINOTRANSFERASE 21 U/L (12-78); ALKALINE PHOSPHATASE 80 U/L (45-117); BILIRUBIN,TOTAL 0.5 mg/dL (0.2-1.0); CREATININE 2.17 mg/dL (0.55-1.02); TOTAL PROTEIN 6.2 g/dL (6.4-8.2)
[2019-03-22 13:21] VITALS: BP 153/76
[2019-03-22] MEDS: LIDODERM 5% PATCH TD SCH (14:05)
[2019-03-22] MEDS: FUROSEMIDE 40 MG TABLET PO SCH (16:55)
[2019-03-22 19:49] VITALS: BP 150/70
[2019-03-22] MEDS: ATORVASTATIN 10 MG TABLET PO SCH (19:56)
[2019-03-22] MEDS: AMOXICILLIN/CLAV 500-125MG TABLET PO SCH (19:57)
[2019-03-22] MEDS: MELATONIN 5 MG TABLET PO SCH (19:57)
[2019-03-22] MEDS: ERGOCALCIFEROL 50,000 UNIT CAPSULE PO SCH (22:13)
[2019-03-22] MEDS: cloniDINE 0.3MG PATCH TD SCH (22:14)
[2019-03-23] VITALS: BP 126/59
[2019-03-23] MEDS: ACETAMINOPHEN 325 MG TABLET PO PRN (04:20)
[2019-03-23] MEDS: ONDANSETRON ODT 4 MG PO PRN ×2 (04:20→11:21)
[2019-03-23 05:31] LABS: BASOPHILS # (AUTO) 0.02 x10^3/uL (0-0.1); BASOPHILS % (AUTO) 1 % (0-1); EOSINOPHILS # (AUTO) 0.11 x10^3/uL (0-0.4); EOSINOPHILS % (AUTO) 2 % (1-7); LYMPHOCYTES # (AUTO) 0.81 x10^3/uL (1-3.4); LYMPHOCYTES % (AUTO) 18 % (22-44); MD NO; MEAN CORPUSCULAR HEMOGLOBIN 30.4 pg (27.0-34.8); MEAN CORPUSCULAR HGB CONC 32.3 g/dL (32.4-35.8); MEAN CORPUSCULAR VOLUME 94.1 fL (80-100); MEAN PLATELET VOLUME 6.7 fL (7.4-10.4); MONOCYTES # (AUTO) 0.57 x10^3/uL (0.2-0.8); MONOCYTES % (AUTO) 13 % (2-9); NEUTROPHILS % (AUTO) 67 % (42-75); PLATELET COUNT 300 x10^3/uL (130-400); RED BLOOD COUNT 3.51 x10^6/uL (3.82-5.3); RED CELL DISTRIBUTION WIDTH 16.9 % (9.6-15.2)
[2019-03-23 05:37] LABS: ALANINE AMINOTRANSFERASE 18 U/L (12-78); ALBUMIN 2.7 g/dL (3.4-5.0); ANION GAP 6 mmol/L (5-15); CALCIUM 8.4 mg/dL (8.5-10.1); CHLORIDE 105 mmol/L (98-107); CREATININE 1.94 mg/dL (0.55-1.02)
[2019-03-23 05:39] LABS: ALKALINE PHOSPHATASE 67 U/L (45-117); BILIRUBIN,TOTAL 0.4 mg/dL (0.2-1.0); TOTAL PROTEIN 5.4 g/dL (6.4-8.2)
[2019-03-23] MEDS: CARVEDILOL 25 MG TABLET PO SCH (05:54)
[2019-03-23] MEDS: GUAIFENESIN 200 MG TABLET PO SCH ×2 (05:54→11:21)
[2019-03-23] MEDS: PANTOPROZOLE 40MG TABLET PO SCH (05:54)
[2019-03-23] MEDS: HEPARIN 5,000 UNITS/ML, 1ML SQ SCH (05:55)
[2019-03-23 06:50] VITALS: BP 161/59
[2019-03-23] MEDS: BUMETANIDE 1 MG TABLET PO SCH (08:32)
[2019-03-23] MEDS: ALLOPURINOL 100 MG TABLET PO SCH (08:32)
[2019-03-23] MEDS: LACTOBACILLUS CHEW TABLET PO SCH (08:32)
[2019-03-23] MEDS: AMOXICILLIN/CLAV 500-125MG TABLET PO SCH (08:32)
[2019-03-23] MEDS: SENNA/DOCUSATE TABLET PO SCH (08:32)
[2019-03-23] MEDS: SERTRALINE 50MG TABLET PO SCH (08:33)
[2019-03-23] MEDS: DOXYCYCLINE 100MG TABLET PO SCH (08:33)
[2019-03-23] MEDS: FUROSEMIDE 40 MG TABLET PO SCH (08:33)
[2019-03-23] MEDS: AMLODIPINE 10 MG TAB PO SCH (08:33)
[2019-03-23] MEDS: ISOSORBIDE DINITRATE 10 MG TABLET PO SCH (08:33)
[2019-03-23] MEDS: CYANOCOBALAMIN 1,000 MCG TABLET PO SCH (08:33)
[2019-03-23] MEDS: DONEPEZIL 5 MG TABLET PO SCH (08:33)
[2019-03-23] MEDS: SODIUM CHLORIDE FLUSH 10ML SYR IVF SCH (08:34)
[2019-03-23] MEDS: ALBUTEROL/IPRATROPIUM 2.5MG/0.5MG, 3 ML HHN SCH (08:42)
[2019-03-23] MEDS ORDERED: HYDR-3343 PO (09:47)
[2019-03-23] MEDS ORDERED: BUME1TAB21 PO (09:47)
[2019-03-23] MEDS ORDERED: LIDO700A20 TD (09:47)
[2019-03-23] MEDS ORDERED: DOXY100T PO (09:47)
[2019-03-23] MEDS ORDERED: AMOX-367 PO (09:47)
[2019-03-23] MEDS ORDERED: GUAI200T3 PO (09:47)
== END 2019-03-23 12:18 | disposition home health service (06) | DRG 682 ==
LOC: ED 19:39 → EDIP 19:44 → ED 19:58 → 5SO 20:42 → 4WST 03-20 11:00
PROVIDERS: ADMIT Internal Medicine; ATTEND Internal Medicine
DX: N17.9 Acute kidney failure, unspecified (principal); J96.21 Acute and chronic respiratory failure with hypoxia; I50.33 Acute on chronic diastolic (congestive) heart failure; I13.0 Hypertensive heart and chronic kidney disease with heart failure and stage 1 through stage 4 chronic kidney disease, or unspecified chronic kidney disease; N18.4 Chronic kidney disease, stage 4 (severe); Z66 Do not resuscitate; D57.3 Sickle-cell trait; E11.22 Type 2 diabetes mellitus with diabetic chronic kidney disease; Z68.34 Body mass index [BMI] 34.0-34.9, adult; E66.9 Obesity, unspecified; E78.5 Hyperlipidemia, unspecified; F03.90 Unspecified dementia, unspecified severity, without behavioral disturbance, psychotic disturbance, mood disturbance, and anxiety; F41.9 Anxiety disorder, unspecified; G89.29 Other chronic pain; I35.9 Nonrheumatic aortic valve disorder, unspecified; J20.9 Acute bronchitis, unspecified; J43.9 Emphysema, unspecified; K21.9 Gastro-esophageal reflux disease without esophagitis; Z53.20 Procedure and treatment not carried out because of patient's decision for unspecified reasons; Z83.3 Family history of diabetes mellitus; I25.2 Old myocardial infarction; Z88.8 Allergy status to other drugs, medicaments and biological substances; Z88.5 Allergy status to narcotic agent; Z91.013 Allergy to seafood
CPT/HCPCS: 36415; 36600; 71045; 80053; 81001; 82803; 83880; 84484; 85025; 85610; 87040; 93005; 94640; 96374; 96375; G0378; J0696; J1644; J1940; J7060; J7620; Q0162; J2930

== ENCOUNTER 2019-10-05 22:18 | Inpatient (IN) | payer MEDICARE, OTHER ==
[~2019-10-05] VITALS: Ht 165.1 cm; Wt 81.2 kg
[~2019-10-05 22:18] MED LIST changes: +ACAR50TA PO; -ACAR50TA11 PO; +AMOX-367 PO; +BUME1TAB21 PO; -DOXY100T10 PO; +DOXY100T23 PO; +FURO80TA3 PO; +GABA-826 PO; -GUAI200T3 PO; +GUAI200T37 PO; +INDO25CA22 PO; -INDO25CA5 PO; +LIDO700A20 TD; +MELA5TAB14 PO; -MELA5TAB19 PO; +METO2.5T PO
--- NOTE | 2019-10-05 22:33 | NUR ---
PT FOUND TO BE 65% ON RA FOR O2 SAT IN TRIAGE. TECHNICAL SERVICES SPECIALIST KEVIN NOTIFIED. PT WHEELED TO ROOM IN WHEELCHAIR AND PLACED ON O2 AT THIS TIME.
[2019-10-05] MEDS ORDERED: ASPIRIN 81 MG TABLET CHEW ONE (23:14)
[2019-10-05] MEDS ORDERED: ASPIRIN 81 MG TABLET CHEW PO ONE (23:30)
[2019-10-05] MEDS ORDERED: FUROSEMIDE 40 MG/4 ML ONE (23:52)
[2019-10-05 23:57] LABS: BASOPHILS % (AUTO) 0 % (0-1); EOSINOPHILS # (AUTO) 0.13 x10^3/uL (0-0.4); EOSINOPHILS % (AUTO) 3 % (1-7); LYMPHOCYTES # (AUTO) 0.67 x10^3/uL (1-3.4); LYMPHOCYTES % (AUTO) 15 % (22-44); MD NO; MEAN CORPUSCULAR HEMOGLOBIN 30.2 pg (27.0-34.8); MEAN CORPUSCULAR HGB CONC 31.2 g/dL (32.4-35.8); MEAN CORPUSCULAR VOLUME 96.6 fL (80-100); MEAN PLATELET VOLUME 6.4 fL (7.4-10.4); MONOCYTES % (AUTO) 9 % (2-9); NEUTROPHILS # (AUTO) 3.17 x10^3/uL (1.8-6.8); NEUTROPHILS % (AUTO) 72 % (42-75); PLATELET COUNT 375 x10^3/uL (130-400); RED BLOOD COUNT 3.95 x10^6/uL (3.82-5.3); RED CELL DISTRIBUTION WIDTH 17.2 % (9.6-15.2)
[2019-10-06] MEDS ORDERED: FUROSEMIDE 40 MG/4 ML IV ONE
--- NOTE | 2019-10-06 00:06 | NUR ---
PATIENT TOLERATING INTERVENTIONS WELL. PATIENT PLACED ON BIPAP, TOLERATING WELL. WILL CONTINUE TO MONITOR. PATIENT VERBALIZED UNDERSTANDING OF CALL LIGHT AND NURSE CALL WHEN NEEDING TO GET UP TO RESTROOM. BEDSIDE COMMODE PLACED WITH PATIENT. UPDATED ON PLAN OF CARE. NO NOTED FURTHER NEEDS AT THIS TIME.
[2019-10-06 00:07] LABS: ALANINE AMINOTRANSFERASE 16 U/L (12-78); ALBUMIN 3.9 g/dL (3.4-5.0); ANION GAP 7 mmol/L (5-15); CALCIUM 8.7 mg/dL (8.5-10.1); CHLORIDE 110 mmol/L (98-107)
[2019-10-06 00:11] LABS: ALKALINE PHOSPHATASE 111 U/L (45-117); TOTAL PROTEIN 7.5 g/dL (6.4-8.2); TROPONIN I < 0.015 ng/mL (0.000-0.045)
[2019-10-06 00:14] LABS: BILIRUBIN,TOTAL 1.3 mg/dL (0.2-1.0)
--- NOTE | 2019-10-06 00:43 | NUR ---
PT RESTING COMFORTABLY. BIPAP STILL IN PLACE. PT DENIES CURRENT NEEDS. CALL LIGHT ON LAP.
--- NOTE | 2019-10-06 00:58 | NUR ---
SPOUSE LEAVING TO GO HOME AT THIS TIME. HE REQUESTS WE CALL AND INFORM HIM WHAT ROOM SHE IS ADMITTED TO ONCE THE BED IS ASSIGNED.
--- NOTE | 2019-10-06 01:13 | NUR ---
RT AT BEDSIDE
--- NOTE | 2019-10-06 01:30 | NUR ---
spouse was called and updated on admit bed.
--- NOTE | 2019-10-06 01:48 | NUR ---
PATIENT UP TO RESTROOM WITHOUT COMPLICATIONS, REQUIRES A ONE ASSIST. PATIENT ABLE TO PIVOT AND STAND BY SELF. PATIENT BACK TO BED, TOLERATED WELL. PATIENT REPOSITIONED IN BED. PATIENT DID BECOME SHORT OF BREATH DURING MOVEMENTS, PATIENT ABLE TO REGAIN CONTROL OF BREATHING THROUGH DEEP BREATHING EXERCISES.
--- NOTE | 2019-10-06 01:51 | NUR ---
RT AT BEDSIDE FOR OXYFLOW APPLICATION. PATIENT TOLERATES WELL.
[2019-10-06] MEDS ORDERED: PROMETHAZINE 25 MG/ML, 1ML IM PRN (02:00)
[2019-10-06] MEDS ORDERED: POLYETHYLENE GLYCOL 17 GM PACKET PO PRN (02:00)
[2019-10-06] MEDS ORDERED: ACETAMINOPHEN 325 MG TABLET PO PRN (02:00)
[2019-10-06] MEDS ORDERED: BISACODYL 10 MG SUPP PR PRN (02:00)
[2019-10-06] MEDS ORDERED: morphine SULFATE 10 MG/ML, 1ML IVPush PRN (02:00)
[2019-10-06] MEDS ORDERED: DOCUSATE 100 MG CAPSULE PO PRN (02:00)
[2019-10-06 02:24] LABS: FREE T4 (FREE THYROXINE) 0.76 ng/dL (0.76-1.46)
[2019-10-06 02:34] LABS: HEMOGLOBIN A1C 4.2 % (4.2-6.3)
[2019-10-06 03:10] VITALS: BP 161/86
[2019-10-06 03:29] VITALS: BP 158/84
[2019-10-06] MEDS: HEPARIN 5,000 UNITS/ML, 1ML SQ SCH ×3 (04:03→19:30)
[2019-10-06 05:11] LABS: ALANINE AMINOTRANSFERASE 19 U/L (12-78); ALBUMIN 3.6 g/dL (3.4-5.0); ANION GAP 6 mmol/L (5-15); CALCIUM 8.6 mg/dL (8.5-10.1); CHLORIDE 112 mmol/L (98-107); CHOLESTEROL, TOTAL 91 mg/dL (140-239); CREATININE 3.08 mg/dL (0.55-1.02); TRIGLYCERIDES 63 mg/dL (50-200); VLDL CHOLESTEROL 13 mg/dL (0-25)
[2019-10-06 05:14] LABS: ALKALINE PHOSPHATASE 106 U/L (45-117); BILIRUBIN,TOTAL 0.6 mg/dL (0.2-1.0); CHOL/HDL RATIO 2.2; HDL CHOL % 46 % (28-40); HDL CHOLESTEROL (DIRECT) 42 mg/dL (40-60); LDL CHOLESTEROL,CALCULATED 36 mg/dL (54-169); LDL/HDL RATIO 0.9 (0.5-3.0); TOTAL PROTEIN 7.3 g/dL (6.4-8.2)
[2019-10-06 06:05] LABS: BASOPHILS % (AUTO) 0 % (0-1); EOSINOPHILS % (AUTO) 3 % (1-7); LYMPHOCYTES % (AUTO) 14 % (22-44); MEAN CORPUSCULAR HEMOGLOBIN 30.3 pg (27.0-34.8); MEAN CORPUSCULAR HGB CONC 31.3 g/dL (32.4-35.8); MEAN CORPUSCULAR VOLUME 96.9 fL (80-100); MEAN PLATELET VOLUME 6.4 fL (7.4-10.4); MONOCYTES % (AUTO) 9 % (2-9); NEUTROPHILS % (AUTO) 73 % (42-75); PLATELET COUNT 324 x10^3/uL (130-400); RED CELL DISTRIBUTION WIDTH 16.9 % (9.6-15.2)
[2019-10-06 06:06] LABS: EOSINOPHILS # (AUTO) 0.14 x10^3/uL (0-0.4); LYMPHOCYTES # (AUTO) 0.63 x10^3/uL (1-3.4); MD NO
[2019-10-06] MEDS: CARVEDILOL 25 MG TABLET PO SCH ×2 (06:06→19:29)
[2019-10-06] MEDS: PANTOPROZOLE 40MG TABLET PO SCH ×2 (06:06→16:32)
[2019-10-06] MEDS ORDERED: METOLAZONE 2.5 MG TABLET PO SCH (07:30)
[2019-10-06] MEDS: ALBUTEROL SULFATE 2.5 MG/3 ML NPPB SCH ×4 (07:46→18:53)
[2019-10-06] MEDS: GABAPENTIN 100 MG CAPSULE PO PRN ×2 (08:03→15:01)
[2019-10-06] MEDS: AMLODIPINE 10 MG TAB PO SCH (08:03)
[2019-10-06] MEDS: LACTOBACILLUS CHEW TABLET PO SCH ×3 (08:03→21:46)
[2019-10-06] MEDS: DOCUSATE 100 MG CAPSULE PO SCH ×2 (08:03→21:46)
[2019-10-06] MEDS: SERTRALINE 50MG TABLET PO SCH (08:03)
[2019-10-06] MEDS: ALLOPURINOL 100 MG TABLET PO SCH (08:03)
[2019-10-06] MEDS: DONEPEZIL 5 MG TABLET PO SCH (08:03)
[2019-10-06] MEDS: ASPIRIN 81 MG TABLET EC PO SCH (08:03)
[2019-10-06] MEDS: FUROSEMIDE 40 MG/4 ML IV SCH ×2 (08:03→16:33)
[2019-10-06] MEDS ORDERED: ALPR0.5T7 PO (11:10)
[2019-10-06] MEDS ORDERED: FURO40TA6 PO (11:10)
[2019-10-06] MEDS ORDERED: HYDR-3341 PO (11:10)
[2019-10-06 15:04] VITALS: BP 171/80
[2019-10-06] MEDS: hydrALAzine 20 MG/ML, 1ML IVPush PRN (15:04)
[2019-10-06 16:30] VITALS: BP 156/73
[2019-10-06] MEDS: ATORVASTATIN 10 MG TABLET PO SCH (21:46)
[2019-10-06] MEDS: MELATONIN 5 MG TABLET PO SCH (21:46)
[2019-10-07 04:50] LABS: ALANINE AMINOTRANSFERASE 12 U/L (12-78); ALBUMIN 3.3 g/dL (3.4-5.0); ANION GAP 6 mmol/L (5-15); CALCIUM 8.7 mg/dL (8.5-10.1); CHLORIDE 111 mmol/L (98-107); CREATININE 2.53 mg/dL (0.55-1.02)
[2019-10-07 04:52] LABS: MEAN CORPUSCULAR HEMOGLOBIN 30.3 pg (27.0-34.8); MEAN CORPUSCULAR HGB CONC 31.2 g/dL (32.4-35.8); MEAN CORPUSCULAR VOLUME 97.3 fL (80-100); MEAN PLATELET VOLUME 6.4 fL (7.4-10.4); PLATELET COUNT 316 x10^3/uL (130-400); RED BLOOD COUNT 3.74 x10^6/uL (3.82-5.3); RED CELL DISTRIBUTION WIDTH 17.5 % (9.6-15.2)
[2019-10-07 04:53] LABS: ALKALINE PHOSPHATASE 96 U/L (45-117); BILIRUBIN,TOTAL 0.6 mg/dL (0.2-1.0); CHOL/HDL RATIO 2.2; CHOLESTEROL, TOTAL 85 mg/dL (140-239); HDL CHOL % 46 % (28-40); HDL CHOLESTEROL (DIRECT) 39 mg/dL (40-60); LDL CHOLESTEROL,CALCULATED 38 mg/dL (54-169); TOTAL PROTEIN 6.6 g/dL (6.4-8.2); TRIGLYCERIDES 38 mg/dL (50-200); VLDL CHOLESTEROL 8 mg/dL (0-25)
[2019-10-07] MEDS: CARVEDILOL 25 MG TABLET PO SCH ×2 (05:06→17:29)
[2019-10-07] MEDS: PANTOPROZOLE 40MG TABLET PO SCH ×2 (05:06→16:22)
[2019-10-07] MEDS: HEPARIN 5,000 UNITS/ML, 1ML SQ SCH ×3 (05:07→20:35)
[2019-10-07 05:16] LABS: MD YES
[2019-10-07 05:18] LABS: BAND#(MANUAL) 0.05 x10^3/uL; BANDS%(MANUAL) 1 % (0-7); EOS#(MANUAL) 0.09 x10^3/uL (0.0-0.4); EOS% (MANUAL) 2 % (1-7); LYMPH#(MANUAL) 0.66 x10^3/uL (1-3.4); LYMPHS% (MANUAL) 14 % (22-44); MONOS#(MANUAL) 0.24 x10^3/uL (0.3-2.7); MONOS% (MANUAL) 5 % (2-9); REACTIVE LYMPHS # (MANUAL) 0.09 x10^3/uL (0-0); REACTIVE LYMPHS % (MANUAL) 2 % (0-0); SEG#(MANUAL) 3.57 x10^3/uL (1.8-6.8); SEGS% (MANUAL) 76 % (42-75)
[2019-10-07 05:19] LABS: <PLATELET ESTIMATE> ADEQUATE; <PLT MORPHOLOGY> NORMAL PLT MORPH; ANISOCYTOSIS 1+; POLYCHROMASIA 1+
[2019-10-07 05:20] LABS: TARGET CELLS 1+
[2019-10-07] MEDS: ALBUTEROL SULFATE 2.5 MG/3 ML NPPB SCH ×4 (07:00→20:00)
[2019-10-07] MEDS: LACTOBACILLUS CHEW TABLET PO SCH ×3 (07:24→20:35)
[2019-10-07] MEDS: DOCUSATE 100 MG CAPSULE PO SCH ×2 (07:25→20:36)
[2019-10-07] MEDS: FUROSEMIDE 40 MG/4 ML IV SCH ×2 (07:25→16:19)
[2019-10-07] MEDS: DONEPEZIL 5 MG TABLET PO SCH (07:25)
[2019-10-07] MEDS: ASPIRIN 81 MG TABLET EC PO SCH (07:26)
[2019-10-07] MEDS: AMLODIPINE 10 MG TAB PO SCH (07:26)
[2019-10-07] MEDS: ALLOPURINOL 100 MG TABLET PO SCH (07:26)
[2019-10-07] MEDS: SERTRALINE 50MG TABLET PO SCH (07:26)
[2019-10-07] MEDS ORDERED: VANCOMYCIN PER PHARMACY MC PRN (09:30)
[2019-10-07] MEDS ORDERED: PIPERACILLIN/TAZO(ZOSYN) 2.25 GM in NS 50 ML IVPB SCH (09:30)
[2019-10-07] MEDS ORDERED: SODIUM CHLORIDE 0.9% 1,000 ML IV SCH (09:30)
[2019-10-07] MEDS: ISOSORBIDE DINITRATE 10 MG TABLET PO SCH ×2 (16:19→20:40)
[2019-10-07 16:33] VITALS: BP 164/67
[2019-10-07] MEDS: ATORVASTATIN 10 MG TABLET PO SCH (20:35)
[2019-10-07] MEDS: MELATONIN 5 MG TABLET PO SCH (20:36)
[2019-10-07 20:38] VITALS: BP 177/66
[2019-10-08 02:54] VITALS: BP 166/72
[2019-10-08] MEDS: hydrALAzine 20 MG/ML, 1ML IVPush PRN ×2 (02:54→20:29)
[2019-10-08] MEDS: ALBUTEROL SULFATE 2.5 MG/3 ML NPPB SCH ×5 (03:37→20:00)
[2019-10-08] MEDS: HEPARIN 5,000 UNITS/ML, 1ML SQ SCH ×3 (04:09→20:27)
[2019-10-08 05:30] VITALS: BP 169/74
[2019-10-08] MEDS: CARVEDILOL 25 MG TABLET PO SCH ×2 (05:31→17:28)
[2019-10-08] MEDS: PANTOPROZOLE 40MG TABLET PO SCH ×2 (05:31→17:29)
[2019-10-08 05:43] LABS: BASOPHILS # (AUTO) 0.01 x10^3/uL (0-0.1); BASOPHILS % (AUTO) 0 % (0-1); EOSINOPHILS # (AUTO) 0.18 x10^3/uL (0-0.4); EOSINOPHILS % (AUTO) 4 % (1-7); LYMPHOCYTES # (AUTO) 0.77 x10^3/uL (1-3.4); LYMPHOCYTES % (AUTO) 18 % (22-44); MD NO; MEAN CORPUSCULAR HEMOGLOBIN 30.3 pg (27.0-34.8); MEAN CORPUSCULAR HGB CONC 31.3 g/dL (32.4-35.8); MEAN CORPUSCULAR VOLUME 96.8 fL (80-100); MEAN PLATELET VOLUME 6.7 fL (7.4-10.4); MONOCYTES # (AUTO) 0.41 x10^3/uL (0.2-0.8); MONOCYTES % (AUTO) 10 % (2-9); NEUTROPHILS # (AUTO) 2.87 x10^3/uL (1.8-6.8); NEUTROPHILS % (AUTO) 68 % (42-75); PLATELET COUNT 309 x10^3/uL (130-400); RED BLOOD COUNT 3.79 x10^6/uL (3.82-5.3); RED CELL DISTRIBUTION WIDTH 17.1 % (9.6-15.2)
[2019-10-08 05:55] LABS: ALANINE AMINOTRANSFERASE 12 U/L (12-78); ALBUMIN 3.1 g/dL (3.4-5.0); ANION GAP 4 mmol/L (5-15); CALCIUM 8.8 mg/dL (8.5-10.1); CHLORIDE 110 mmol/L (98-107)
[2019-10-08 05:57] LABS: ALKALINE PHOSPHATASE 91 U/L (45-117); BILIRUBIN,TOTAL 0.9 mg/dL (0.2-1.0); TOTAL PROTEIN 6.4 g/dL (6.4-8.2)
[2019-10-08] MEDS: OXYcodone IR 5MG TABLET PO PRN ×2 (06:04→09:18)
[2019-10-08 06:57] VITALS: BP 164/68
[2019-10-08] MEDS: DOCUSATE 100 MG CAPSULE PO SCH ×2 (09:13→20:28)
[2019-10-08] MEDS: DONEPEZIL 5 MG TABLET PO SCH (09:13)
[2019-10-08] MEDS: ISOSORBIDE DINITRATE 10 MG TABLET PO SCH ×3 (09:13→20:28)
[2019-10-08] MEDS: LACTOBACILLUS CHEW TABLET PO SCH ×3 (09:13→20:28)
[2019-10-08] MEDS: FUROSEMIDE 40 MG/4 ML IV SCH ×2 (09:13→17:27)
[2019-10-08] MEDS: SERTRALINE 50MG TABLET PO SCH (09:13)
[2019-10-08] MEDS: ALLOPURINOL 100 MG TABLET PO SCH (09:14)
[2019-10-08] MEDS: ASPIRIN 81 MG TABLET EC PO SCH (09:14)
[2019-10-08] MEDS: AMLODIPINE 10 MG TAB PO SCH (09:18)
[2019-10-08] MEDS: ONDANSETRON 2MG/ML, 2ML IVPush PRN (14:25)
[2019-10-08] MEDS ORDERED: SIMETHICONE 80 MG CHEW TAB PO PRN (15:00)
[2019-10-08 16:14] VITALS: BP 143/78
[2019-10-08 19:09] VITALS: BP 176/75
[2019-10-08] MEDS: MELATONIN 5 MG TABLET PO SCH (20:28)
[2019-10-08] MEDS: ATORVASTATIN 10 MG TABLET PO SCH (20:28)
[2019-10-09 00:49] VITALS: BP 127/63
[2019-10-09] MEDS: HEPARIN 5,000 UNITS/ML, 1ML SQ SCH ×3 (03:58→20:27)
[2019-10-09 04:57] LABS: BASOPHILS % (AUTO) 0 % (0-1); EOSINOPHILS # (AUTO) 0.17 x10^3/uL (0-0.4); EOSINOPHILS % (AUTO) 4 % (1-7); LYMPHOCYTES # (AUTO) 0.64 x10^3/uL (1-3.4); LYMPHOCYTES % (AUTO) 14 % (22-44); MD NO; MEAN CORPUSCULAR HEMOGLOBIN 30.1 pg (27.0-34.8); MEAN CORPUSCULAR HGB CONC 31.1 g/dL (32.4-35.8); MEAN CORPUSCULAR VOLUME 96.6 fL (80-100); MEAN PLATELET VOLUME 6.8 fL (7.4-10.4); MONOCYTES # (AUTO) 0.54 x10^3/uL (0.2-0.8); MONOCYTES % (AUTO) 11 % (2-9); NEUTROPHILS % (AUTO) 72 % (42-75); PLATELET COUNT 312 x10^3/uL (130-400); RED BLOOD COUNT 3.85 x10^6/uL (3.82-5.3); RED CELL DISTRIBUTION WIDTH 17.4 % (9.6-15.2)
[2019-10-09 05:06] LABS: ANION GAP 6 mmol/L (5-15); CALCIUM 8.8 mg/dL (8.5-10.1); CHLORIDE 108 mmol/L (98-107); CREATININE 2.03 mg/dL (0.55-1.02)
[2019-10-09 05:44] VITALS: BP 151/76
[2019-10-09] MEDS: PANTOPROZOLE 40MG TABLET PO SCH ×2 (05:45→17:15)
[2019-10-09] MEDS: CARVEDILOL 25 MG TABLET PO SCH ×2 (05:45→17:13)
[2019-10-09] MEDS: ALBUTEROL SULFATE 2.5 MG/3 ML NPPB SCH ×4 (07:00→20:00)
[2019-10-09 07:37] VITALS: BP 167/57
[2019-10-09] MEDS: ASPIRIN 81 MG TABLET EC PO SCH (08:50)
[2019-10-09] MEDS: AMLODIPINE 10 MG TAB PO SCH (08:50)
[2019-10-09] MEDS: DOCUSATE 100 MG CAPSULE PO SCH ×2 (08:50→20:26)
[2019-10-09] MEDS: SERTRALINE 50MG TABLET PO SCH (08:50)
[2019-10-09] MEDS: DONEPEZIL 5 MG TABLET PO SCH (08:50)
[2019-10-09] MEDS: LACTOBACILLUS CHEW TABLET PO SCH ×3 (08:50→20:25)
[2019-10-09] MEDS: FUROSEMIDE 40 MG/4 ML IV SCH ×2 (08:50→17:13)
[2019-10-09] MEDS: ALLOPURINOL 100 MG TABLET PO SCH (08:51)
[2019-10-09] MEDS: ISOSORBIDE DINITRATE 10 MG TABLET PO SCH ×3 (08:51→20:26)
[2019-10-09] MEDS: GABAPENTIN 100 MG CAPSULE PO PRN (08:55)
[2019-10-09] MEDS ORDERED: LIDOCAINE 1%, 10ML ONE (12:30)
[2019-10-09] MEDS: methylPREDNISolone SOD SUCC 125 MG/2 ML IVPush SCH ×2 (12:30→14:00)
[2019-10-09 12:42] LABS: INTERNATIONAL NORMALIZED RATIO 1.08 (0.93-1.1); PROTHROMBIN TIME 11.3 Seconds (9.6-11.5)
[2019-10-09 13:10] VITALS: BP 151/77
[2019-10-09] MEDS ORDERED: methylPREDNISolone SOD SUCC 40 MG/ML ONE (14:06)
[2019-10-09 19:54] VITALS: BP 147/78
[2019-10-09] MEDS: MELATONIN 5 MG TABLET PO SCH (20:26)
[2019-10-09] MEDS: ATORVASTATIN 10 MG TABLET PO SCH (20:26)
[2019-10-10] VITALS (7 sets, daily range): BP systolic 134–155; BP diastolic 67–80
[2019-10-10] MEDS: HEPARIN 5,000 UNITS/ML, 1ML SQ SCH ×3 (04:22→21:53)
[2019-10-10] MEDS: CARVEDILOL 25 MG TABLET PO SCH ×2 (05:02→16:48)
[2019-10-10] MEDS: PANTOPROZOLE 40MG TABLET PO SCH ×2 (05:02→16:49)
[2019-10-10 05:31] LABS: ANION GAP 6 mmol/L (5-15); CALCIUM 8.7 mg/dL (8.5-10.1); CHLORIDE 107 mmol/L (98-107); MEAN CORPUSCULAR HEMOGLOBIN 29.9 pg (27.0-34.8); MEAN CORPUSCULAR HGB CONC 31.7 g/dL (32.4-35.8); MEAN CORPUSCULAR VOLUME 94.5 fL (80-100); MEAN PLATELET VOLUME 6.5 fL (7.4-10.4); PLATELET COUNT 311 x10^3/uL (130-400); RED BLOOD COUNT 3.69 x10^6/uL (3.82-5.3)
[2019-10-10 05:33] LABS: CREATININE 2.08 mg/dL (0.55-1.02)
[2019-10-10 06:02] LABS: BASOPHILS % (AUTO) 0 % (0-1); EOSINOPHILS % (AUTO) 0 % (1-7); LYMPHOCYTES # (AUTO) 0.29 x10^3/uL (1-3.4); LYMPHOCYTES % (AUTO) 12 % (22-44); MD SCAN; MONOCYTES # (AUTO) 0.15 x10^3/uL (0.2-0.8); MONOCYTES % (AUTO) 6 % (2-9); NEUTROPHILS # (AUTO) 2.07 x10^3/uL (1.8-6.8); NEUTROPHILS % (AUTO) 83 % (42-75)
[2019-10-10] MEDS ORDERED: ALBUTEROL SULFATE 2.5 MG/3 ML ONE (06:47)
[2019-10-10] MEDS: ALBUTEROL SULFATE 2.5 MG/3 ML NPPB SCH ×2 (07:30→20:26)
[2019-10-10] MEDS: DONEPEZIL 5 MG TABLET PO SCH (08:08)
[2019-10-10] MEDS: ISOSORBIDE DINITRATE 10 MG TABLET PO SCH ×3 (08:08→21:54)
[2019-10-10] MEDS: FUROSEMIDE 40 MG/4 ML IV SCH ×2 (08:08→16:48)
[2019-10-10] MEDS: LACTOBACILLUS CHEW TABLET PO SCH ×3 (08:08→21:54)
[2019-10-10] MEDS: DOCUSATE 100 MG CAPSULE PO SCH ×2 (08:08→21:53)
[2019-10-10] MEDS: AMLODIPINE 10 MG TAB PO SCH (08:09)
[2019-10-10] MEDS: ALLOPURINOL 100 MG TABLET PO SCH (08:09)
[2019-10-10] MEDS: SERTRALINE 50MG TABLET PO SCH (08:09)
[2019-10-10] MEDS: ASPIRIN 81 MG TABLET EC PO SCH (08:09)
[2019-10-10] MEDS: ONDANSETRON ODT 4 MG PO PRN (08:24)
[2019-10-10] MEDS: MELATONIN 5 MG TABLET PO SCH (21:53)
[2019-10-10] MEDS: ATORVASTATIN 10 MG TABLET PO SCH (21:54)
[2019-10-11] VITALS (7 sets, daily range): BP systolic 129–176; BP diastolic 62–81
[2019-10-11] MEDS: HEPARIN 5,000 UNITS/ML, 1ML SQ SCH ×3 (05:07→21:41)
[2019-10-11] MEDS: CARVEDILOL 25 MG TABLET PO SCH ×2 (05:08→16:50)
[2019-10-11] MEDS: OXYcodone IR 5MG TABLET PO PRN ×2 (05:08→09:20)
[2019-10-11] MEDS: PANTOPROZOLE 40MG TABLET PO SCH ×2 (05:08→16:51)
[2019-10-11] MEDS: ONDANSETRON 2MG/ML, 2ML IVPush PRN (05:08)
[2019-10-11 05:22] LABS: BASOPHILS % (AUTO) 0 % (0-1); EOSINOPHILS % (AUTO) 2 % (1-7); LYMPHOCYTES % (AUTO) 19 % (22-44); MD NO; MEAN CORPUSCULAR HEMOGLOBIN 30.1 pg (27.0-34.8); MEAN CORPUSCULAR HGB CONC 31.2 g/dL (32.4-35.8); MEAN CORPUSCULAR VOLUME 96.6 fL (80-100); MEAN PLATELET VOLUME 6.8 fL (7.4-10.4); MONOCYTES # (AUTO) 0.56 x10^3/uL (0.2-0.8); MONOCYTES % (AUTO) 12 % (2-9); NEUTROPHILS # (AUTO) 3.25 x10^3/uL (1.8-6.8); NEUTROPHILS % (AUTO) 68 % (42-75); PLATELET COUNT 299 x10^3/uL (130-400); RED BLOOD COUNT 3.72 x10^6/uL (3.82-5.3); RED CELL DISTRIBUTION WIDTH 16.9 % (9.6-15.2)
[2019-10-11 05:28] LABS: ALBUMIN 2.9 g/dL (3.4-5.0); ANION GAP 4 mmol/L (5-15); CALCIUM 8.7 mg/dL (8.5-10.1); CHLORIDE 107 mmol/L (98-107)
[2019-10-11 05:31] LABS: ALANINE AMINOTRANSFERASE 19 U/L (12-78); ALKALINE PHOSPHATASE 90 U/L (45-117); BILIRUBIN,TOTAL 0.6 mg/dL (0.2-1.0); CREATININE 2.11 mg/dL (0.55-1.02); TOTAL PROTEIN 6.1 g/dL (6.4-8.2)
[2019-10-11] MEDS ORDERED: MAGNESIUM SULFATE PMX 2GM/50ML 50 ML IV ONE (06:00)
[2019-10-11] MEDS: FUROSEMIDE 40 MG/4 ML IV SCH ×2 (08:55→16:50)
[2019-10-11] MEDS: ISOSORBIDE DINITRATE 10 MG TABLET PO SCH ×3 (08:56→21:38)
[2019-10-11] MEDS: LACTOBACILLUS CHEW TABLET PO SCH ×3 (08:56→21:41)
[2019-10-11] MEDS: DOCUSATE 100 MG CAPSULE PO SCH ×2 (08:57→21:41)
[2019-10-11] MEDS: AMLODIPINE 10 MG TAB PO SCH (08:57)
[2019-10-11] MEDS: DONEPEZIL 5 MG TABLET PO SCH (08:57)
[2019-10-11] MEDS: ASPIRIN 81 MG TABLET EC PO SCH (08:57)
[2019-10-11] MEDS: SERTRALINE 50MG TABLET PO SCH (08:57)
[2019-10-11] MEDS: ALBUTEROL SULFATE 2.5 MG/3 ML NPPB SCH ×2 (09:00→20:35)
[2019-10-11] MEDS: ALLOPURINOL 100 MG TABLET PO SCH (09:20)
[2019-10-11] MEDS: ONDANSETRON ODT 4 MG PO PRN (15:03)
[2019-10-11] MEDS: MELATONIN 5 MG TABLET PO SCH (21:41)
[2019-10-11] MEDS: ATORVASTATIN 10 MG TABLET PO SCH (21:41)
[2019-10-12 02:00] VITALS: BP 143/70
[2019-10-12] MEDS: CARVEDILOL 25 MG TABLET PO SCH (05:23)
[2019-10-12] MEDS: PANTOPROZOLE 40MG TABLET PO SCH ×2 (05:23→15:03)
[2019-10-12] MEDS: HEPARIN 5,000 UNITS/ML, 1ML SQ SCH ×2 (05:25→13:30)
[2019-10-12 06:31] LABS: ANION GAP 6 mmol/L (5-15); CALCIUM 9.5 mg/dL (8.5-10.1); CHLORIDE 106 mmol/L (98-107)
[2019-10-12 06:34] LABS: CREATININE 1.96 mg/dL (0.55-1.02)
[2019-10-12 06:49] LABS: BASOPHILS # (AUTO) 0.01 x10^3/uL (0-0.1); BASOPHILS % (AUTO) 0 % (0-1); EOSINOPHILS # (AUTO) 0.16 x10^3/uL (0-0.4); EOSINOPHILS % (AUTO) 3 % (1-7); LYMPHOCYTES % (AUTO) 16 % (22-44); MD NO; MEAN CORPUSCULAR HEMOGLOBIN 30.5 pg (27.0-34.8); MEAN CORPUSCULAR HGB CONC 32.1 g/dL (32.4-35.8); MEAN CORPUSCULAR VOLUME 95.1 fL (80-100); MEAN PLATELET VOLUME 7.3 fL (7.4-10.4); MONOCYTES % (AUTO) 11 % (2-9); NEUTROPHILS # (AUTO) 3.94 x10^3/uL (1.8-6.8); NEUTROPHILS % (AUTO) 70 % (42-75); PLATELET COUNT 307 x10^3/uL (130-400); RED BLOOD COUNT 3.92 x10^6/uL (3.82-5.3); RED CELL DISTRIBUTION WIDTH 16.7 % (9.6-15.2)
[2019-10-12 06:54] VITALS: BP 161/86
[2019-10-12] MEDS: ALBUTEROL SULFATE 2.5 MG/3 ML NPPB SCH (08:06)
[2019-10-12] MEDS: FUROSEMIDE 40 MG/4 ML IV SCH (08:27)
[2019-10-12] MEDS: SERTRALINE 50MG TABLET PO SCH (08:28)
[2019-10-12] MEDS: DOCUSATE 100 MG CAPSULE PO SCH (08:28)
[2019-10-12] MEDS: AMLODIPINE 10 MG TAB PO SCH (08:28)
[2019-10-12] MEDS: ASPIRIN 81 MG TABLET EC PO SCH (08:28)
[2019-10-12] MEDS: DONEPEZIL 5 MG TABLET PO SCH (08:28)
[2019-10-12] MEDS: ISOSORBIDE DINITRATE 10 MG TABLET PO SCH ×2 (08:28→15:03)
[2019-10-12] MEDS: LACTOBACILLUS CHEW TABLET PO SCH ×2 (08:29→15:03)
[2019-10-12] MEDS: ALLOPURINOL 100 MG TABLET PO SCH (08:29)
[2019-10-12] MEDS: ONDANSETRON ODT 4 MG PO PRN (09:42)
[2019-10-12] MEDS ORDERED: HYDR-3343 PO (09:48)
[2019-10-12] MEDS ORDERED: SIME80TA16 PO (09:48)
[2019-10-12] MEDS ORDERED: ALLO100T30 PO (09:48)
[2019-10-12 11:39] VITALS: BP 141/56
[2019-10-12 13:22] VITALS: BP 162/87
[2019-10-12 15:05] VITALS: BP 151/82
[2019-10-12] MEDS ORDERED: FUROSEMIDE 40 MG TABLET PO SCH (17:00)
[2019-10-12] MEDS ORDERED: FLUTICASONE NASAL SPRAY 16GM NAS SCH (21:00)
== END 2019-10-12 18:23 | disposition home health service (06) | DRG 291 ==
LOC: ED 23:59 → EDIP 10-06 01:21 → CCU 10-06 02:30 → 5SO 10-07 13:45
PROVIDERS: ADMIT Internal Medicine; ATTEND Internal Medicine
PROC: 5A09357 Assistance with Respiratory Ventilation, Less than 24 Consecutive Hours, Continuous Positive Airway Pressure (ICD-10-PCS; principal; 2019-10-06)
DX: I13.0 Hypertensive heart and chronic kidney disease with heart failure and stage 1 through stage 4 chronic kidney disease, or unspecified chronic kidney disease (principal); I50.33 Acute on chronic diastolic (congestive) heart failure; J96.21 Acute and chronic respiratory failure with hypoxia; N18.4 Chronic kidney disease, stage 4 (severe); J44.1 Chronic obstructive pulmonary disease with (acute) exacerbation; N17.9 Acute kidney failure, unspecified; D63.8 Anemia in other chronic diseases classified elsewhere; D57.3 Sickle-cell trait; F41.9 Anxiety disorder, unspecified; E78.5 Hyperlipidemia, unspecified; F03.90 Unspecified dementia, unspecified severity, without behavioral disturbance, psychotic disturbance, mood disturbance, and anxiety; I08.3 Combined rheumatic disorders of mitral, aortic and tricuspid valves; K21.9 Gastro-esophageal reflux disease without esophagitis; M10.9 Gout, unspecified; G89.29 Other chronic pain; M54.9 Dorsalgia, unspecified; E11.22 Type 2 diabetes mellitus with diabetic chronic kidney disease; I27.29 Other secondary pulmonary hypertension; Z87.828 Personal history of other (healed) physical injury and trauma; Z91.013 Allergy to seafood; Z87.891 Personal history of nicotine dependence; Z99.81 Dependence on supplemental oxygen; I25.2 Old myocardial infarction; Z79.899 Other long term (current) drug therapy; Z83.3 Family history of diabetes mellitus; Z88.5 Allergy status to narcotic agent; Z79.82 Long term (current) use of aspirin; Z87.01 Personal history of pneumonia (recurrent); Z88.6 Allergy status to analgesic agent
CPT/HCPCS: 32555; 36415; 71045; 74018; 80048; 80053; 80061; 83036; 83615; 83735; 83880; 84100; 84439; 84443; 84484; 85025; 85610; 87081; 93005; 93306; 94640; 94660; G0378; J1644; J1940; J2405; J7613; Q0162; J0360; J2930; J3475

== ENCOUNTER 2019-11-22 12:43 | Inpatient (IN) | payer MEDICARE, OTHER ==
[~2019-11-22] VITALS: Ht 165.1 cm; Wt 73.8 kg
[~2019-11-22 12:43] MED LIST changes: +ALPR0.5T7 PO
[2019-11-22] MEDS ORDERED: SODIUM CHLORIDE FLUSH 10ML SYR IVF ONE (13:30)
[2019-11-22] MEDS ORDERED: FUROSEMIDE 40 MG/4 ML IV ONE (14:30)
[2019-11-22] MEDS ORDERED: FUROSEMIDE 40 MG/4 ML ONE (14:32)
[2019-11-22 14:40] LABS: ALBUMIN 3.5 g/dL (3.4-5.0); ANION GAP 6 mmol/L (5-15); CALCIUM 8.7 mg/dL (8.5-10.1); CHLORIDE 105 mmol/L (98-107)
[2019-11-22 14:45] LABS: ALANINE AMINOTRANSFERASE 8 U/L (12-78); ALKALINE PHOSPHATASE 98 U/L (45-117); BILIRUBIN,TOTAL 1.1 mg/dL (0.2-1.0); CREATININE 3.58 mg/dL (0.55-1.02); TROPONIN I < 0.015 ng/mL (0.000-0.045)
--- NOTE | 2019-11-22 15:11 | NUR ---
RECEIVED REPORT FROM AMISH. PT UPRIGHT ON GURNEY AWAKE & COMFORTABLE AT REST, [place] BUT RESPONDS APPROP TO STAFF, REQUIRES INCR SUPPL O2- DR [place]O AWARE, COMFORT MEASURES PROVIDED INCL [place] PLACED FOR COMFORT, FAMILY AT BS, CALL LIGHT WITHIN REACH.
[2019-11-22] MEDS ORDERED: MELA10TA PO (15:20)
[2019-11-22 15:26] LABS: MD YES; MEAN CORPUSCULAR HEMOGLOBIN 29.7 pg (27.0-34.8); MEAN CORPUSCULAR HGB CONC 31.8 g/dL (32.4-35.8); MEAN CORPUSCULAR VOLUME 93.3 fL (80-100); MEAN PLATELET VOLUME 6.6 fL (7.4-10.4); PLATELET COUNT 268 x10^3/uL (130-400); RED BLOOD COUNT 3.92 x10^6/uL (3.82-5.3); RED CELL DISTRIBUTION WIDTH 16.9 % (9.6-15.2)
[2019-11-22 15:28] LABS: EOS#(MANUAL) 0.08 x10^3/uL (0.0-0.4); EOS% (MANUAL) 2 % (1-7); LYMPH#(MANUAL) 0.66 x10^3/uL (1-3.4); LYMPHS% (MANUAL) 16 % (22-44); MONOS#(MANUAL) 0.37 x10^3/uL (0.3-2.7); MONOS% (MANUAL) 9 % (2-9); SEG#(MANUAL) 2.99 x10^3/uL (1.8-6.8); SEGS% (MANUAL) 73 % (42-75)
[2019-11-22 15:29] LABS: <PLATELET ESTIMATE> ADEQUATE; ANISOCYTOSIS 1+; SMALL PLATELETS 1+; TARGET CELLS 1+
--- NOTE | 2019-11-22 16:03 | NUR ---
PT UPRIGHT ON GURNEY AWAKE & COMFORTABLE AT REST, RESPONDS APPROP TO STAFF, NAD, COMFORT MEASURES PROVIDED, FAMILY AT BS, CALL LIGHT WITHIN REACH.
[2019-11-22] MEDS ORDERED: ALPRazolam 1MG TAB PO PRN (17:00)
--- NOTE | 2019-11-22 17:01 | NUR ---
PT REMAINS UPRIGHT ON GURNEY AWAKE & COMFORTABLE AT REST, RESPONDS APPROP TO STAFF, CONTINUES TO REQUIRE INCR SUPPL O2- SMS AWARE & CHANGED PT LEVEL OF CARE TO ICU (TP & CASINO FLOOR PERSON AWARE), COMFORT MEASURES PROVIDED, FAMILY AT BS, CALL LIGHT WITHIN REACH.
--- NOTE | 2019-11-22 17:01 | NUR ---
(PREVIOUS NOTE CHARTED UNDER WRONG USER): PT REMAINS UPRIGHT ON GURNEY AWAKE & COMFORTABLE AT REST, RESPONDS APPROP TO STAFF, CONTINUES TO REQUIRE INCR SUPPL O2- SMS AWARE & CHANGED PT LEVEL OF CARE TO ICU (TP & FLOOR ATTENDANT AWARE), COMFORT MEASURES PROVIDED, FAMILY AT BS, CALL LIGHT WITHIN REACH.
[2019-11-22] MEDS ORDERED: DEXTROSE 4 GM TAB.CHEW PO PRN (17:30)
[2019-11-22] MEDS ORDERED: GLUCAGON 1 MG IM PRN (17:30)
[2019-11-22] MEDS ORDERED: DEXTROSE 50%, 50ML SYRINGE IVPush PRN (17:30)
[2019-11-22] MEDS ORDERED: ACETAMINOPHEN 325 MG TABLET PO PRN (17:30)
[2019-11-22] MEDS ORDERED: CARVEDILOL 25 MG TABLET PO SCH (18:00)
--- NOTE | 2019-11-22 18:00 | NUR ---
PT UPRIGHT ON GURNEY AWAKE & COMFORTABLE, RESPONDS APPROP TO STAFF, NAD WHILE ON BIPAP, COMFORT MEASURES PROVIDED, CALL LIGHT WITHIN REACH.
--- NOTE | 2019-11-22 18:51 | NUR ---
REPORT GIVEN TO RICARDO
--- NOTE | 2019-11-22 18:56 | NUR ---
Report received and assumed patient care. Patient resting comfortably.
[2019-11-22] MEDS: ATORVASTATIN 10 MG TABLET PO SCH (20:41)
[2019-11-22 20:47] VITALS: BP 160/85
[2019-11-22] MEDS: INSULIN LISPRO 100 UNITS/ML, PEN SQ-INSULIN SCH (21:00)
[2019-11-22] MEDS ORDERED: ISOSORBIDE DINITRATE 10 MG TABLET PO SCH (21:00)
[2019-11-22] MEDS ORDERED: VANCOMYCIN PMX 1GM/200ML 200 ML IV ONE (21:30)
[2019-11-22] MEDS ORDERED: SODIUM CHLORIDE 0.9% 1,000 ML IV SCH (21:30)
[2019-11-22] MEDS: SODIUM CHLORIDE FLUSH 10ML SYR IVF SCH (22:10)
[2019-11-22] MEDS: FUROSEMIDE 40 MG/4 ML IV SCH (22:11)
[2019-11-22] MEDS: PIPERACILLIN/TAZO/PMX 2.25GM 50 ML IV SCH (22:11)
[2019-11-22 22:18] LABS: TROPONIN I 0.016 ng/mL (0.000-0.045)
[2019-11-23] MEDS ORDERED: PANTOPRAZOLE 40 MG IV ONE (03:27)
[2019-11-23 04:44] LABS: ANION GAP 6 mmol/L (5-15); CALCIUM 8.8 mg/dL (8.5-10.1); CHLORIDE 108 mmol/L (98-107)
[2019-11-23 04:51] LABS: CREATININE 3.05 mg/dL (0.55-1.02); TROPONIN I < 0.015 ng/mL (0.000-0.045)
[2019-11-23 04:54] LABS: MEAN CORPUSCULAR HEMOGLOBIN 29.9 pg (27.0-34.8); MEAN CORPUSCULAR VOLUME 93.4 fL (80-100); MEAN PLATELET VOLUME 6.7 fL (7.4-10.4); PLATELET COUNT 267 x10^3/uL (130-400); RED BLOOD COUNT 3.88 x10^6/uL (3.82-5.3); RED CELL DISTRIBUTION WIDTH 16.8 % (9.6-15.2)
[2019-11-23 05:15] LABS: MD YES
[2019-11-23 05:27] LABS: <PLATELET ESTIMATE> ADEQUATE; ANISOCYTOSIS 1+; EOS#(MANUAL) 0.03 x10^3/uL (0.0-0.4); EOS% (MANUAL) 1 % (1-7); LYMPH#(MANUAL) 0.51 x10^3/uL (1-3.4); LYMPHS% (MANUAL) 15 % (22-44); MONOS#(MANUAL) 0.51 x10^3/uL (0.3-2.7); MONOS% (MANUAL) 15 % (2-9); SEG#(MANUAL) 2.35 x10^3/uL (1.8-6.8); SEGS% (MANUAL) 69 % (42-75); TARGET CELLS 1+
[2019-11-23 05:28] LABS: <PLT MORPHOLOGY> NORMAL PLT MORPH
[2019-11-23] MEDS: PIPERACILLIN/TAZO/PMX 2.25GM 50 ML IV SCH ×3 (05:45→21:38)
[2019-11-23] MEDS: INSULIN LISPRO 100 UNITS/ML, PEN SQ-INSULIN SCH ×4 (05:59→20:24)
[2019-11-23] MEDS ORDERED: PANTOPROZOLE 40MG TABLET PO SCH (06:00)
[2019-11-23] MEDS ORDERED: PANTOPRAZOLE 40 MG IV IVPush SCH (06:00)
[2019-11-23] MEDS: FUROSEMIDE 40 MG/4 ML IV SCH ×3 (06:01→23:03)
[2019-11-23] MEDS: ALLOPURINOL 100 MG TABLET PO SCH (08:58)
[2019-11-23] MEDS: SERTRALINE 50MG TABLET PO SCH (08:58)
[2019-11-23] MEDS: DONEPEZIL 5 MG TABLET PO SCH (08:58)
[2019-11-23] MEDS: ASPIRIN 81 MG TABLET EC PO SCH (08:58)
[2019-11-23] MEDS: SODIUM CHLORIDE FLUSH 10ML SYR IVF SCH ×2 (13:31→21:39)
[2019-11-23 16:22] VITALS: BP 165/72
[2019-11-23] MEDS: PANTOPROZOLE 40MG TABLET PO SCH (17:15)
[2019-11-23 19:56] VITALS: BP 187/72
[2019-11-23] MEDS: ATORVASTATIN 10 MG TABLET PO SCH (21:38)
[2019-11-23] MEDS: hydrALAzine 20 MG/ML, 1ML IVPush PRN (21:38)
[2019-11-23 22:45] VITALS: BP 162/75
[2019-11-24 00:54] VITALS: BP 164/71
[2019-11-24] MEDS: PIPERACILLIN/TAZO/PMX 2.25GM 50 ML IV SCH ×3 (05:07→20:36)
[2019-11-24] MEDS: PANTOPROZOLE 40MG TABLET PO SCH ×2 (05:07→15:56)
[2019-11-24] MEDS: ONDANSETRON 2MG/ML, 2ML IVPush PRN ×2 (05:08→11:10)
[2019-11-24] MEDS: morphine SULFATE 10 MG/ML, 1ML IVPush PRN ×2 (05:08→22:31)
[2019-11-24] MEDS: INSULIN LISPRO 100 UNITS/ML, PEN SQ-INSULIN SCH ×4 (07:00→20:32)
[2019-11-24 07:02] LABS: ANION GAP 3 mmol/L (5-15); CALCIUM 9.1 mg/dL (8.5-10.1); CHLORIDE 104 mmol/L (98-107)
[2019-11-24 07:04] LABS: CREATININE 2.54 mg/dL (0.55-1.02)
[2019-11-24 07:59] VITALS: BP 173/86
[2019-11-24 08:00] LABS: BASOPHILS % (AUTO) 0 % (0-1); EOSINOPHILS # (AUTO) 0.05 x10^3/uL (0-0.4); EOSINOPHILS % (AUTO) 1 % (1-7); LYMPHOCYTES # (AUTO) 0.52 x10^3/uL (1-3.4); LYMPHOCYTES % (AUTO) 12 % (22-44); MD NO; MEAN CORPUSCULAR HEMOGLOBIN 29.5 pg (27.0-34.8); MEAN CORPUSCULAR HGB CONC 31.5 g/dL (32.4-35.8); MEAN CORPUSCULAR VOLUME 93.8 fL (80-100); MEAN PLATELET VOLUME 6.9 fL (7.4-10.4); MONOCYTES # (AUTO) 0.53 x10^3/uL (0.2-0.8); MONOCYTES % (AUTO) 12 % (2-9); NEUTROPHILS # (AUTO) 3.42 x10^3/uL (1.8-6.8); NEUTROPHILS % (AUTO) 76 % (42-75); PLATELET COUNT 306 x10^3/uL (130-400); RED BLOOD COUNT 4.08 x10^6/uL (3.82-5.3); RED CELL DISTRIBUTION WIDTH 17.2 % (9.6-15.2)
[2019-11-24] MEDS: SERTRALINE 50MG TABLET PO SCH (08:20)
[2019-11-24] MEDS: DONEPEZIL 5 MG TABLET PO SCH (08:21)
[2019-11-24] MEDS: SODIUM CHLORIDE FLUSH 10ML SYR IVF SCH ×2 (08:21→20:37)
[2019-11-24] MEDS: ALLOPURINOL 100 MG TABLET PO SCH (08:21)
[2019-11-24] MEDS: FUROSEMIDE 40 MG/4 ML IV SCH ×3 (08:21→22:31)
[2019-11-24] MEDS: ASPIRIN 81 MG TABLET EC PO SCH (08:21)
[2019-11-24 13:03] VITALS: BP 186/76
[2019-11-24] MEDS: hydrALAzine 20 MG/ML, 1ML IVPush PRN (13:14)
[2019-11-24 13:32] LABS: MICROSCOPIC INDICATED
[2019-11-24 15:48] VITALS: BP 173/65
[2019-11-24 19:08] VITALS: BP 169/66
[2019-11-24] MEDS: ATORVASTATIN 10 MG TABLET PO SCH ×2 (20:36→21:00)
[2019-11-25 00:50] VITALS: BP 159/74
[2019-11-25 05:34] LABS: ANION GAP 6 mmol/L (5-15); CALCIUM 9.2 mg/dL (8.5-10.1); CHLORIDE 104 mmol/L (98-107); CREATININE 2.35 mg/dL (0.55-1.02)
[2019-11-25] MEDS: PIPERACILLIN/TAZO/PMX 2.25GM 50 ML IV SCH ×3 (05:46→21:25)
[2019-11-25] MEDS: PANTOPROZOLE 40MG TABLET PO SCH ×2 (05:46→15:03)
[2019-11-25 06:19] LABS: BASOPHILS # (AUTO) 0.02 x10^3/uL (0-0.1); BASOPHILS % (AUTO) 0 % (0-1); EOSINOPHILS # (AUTO) 0.05 x10^3/uL (0-0.4); EOSINOPHILS % (AUTO) 1 % (1-7); LYMPHOCYTES # (AUTO) 0.64 x10^3/uL (1-3.4); LYMPHOCYTES % (AUTO) 13 % (22-44); MD NO; MEAN CORPUSCULAR HEMOGLOBIN 29.7 pg (27.0-34.8); MEAN CORPUSCULAR HGB CONC 31.6 g/dL (32.4-35.8); MEAN CORPUSCULAR VOLUME 94.1 fL (80-100); MEAN PLATELET VOLUME 6.6 fL (7.4-10.4); MONOCYTES # (AUTO) 0.54 x10^3/uL (0.2-0.8); MONOCYTES % (AUTO) 11 % (2-9); NEUTROPHILS # (AUTO) 3.65 x10^3/uL (1.8-6.8); NEUTROPHILS % (AUTO) 75 % (42-75); PLATELET COUNT 332 x10^3/uL (130-400); RED BLOOD COUNT 4.36 x10^6/uL (3.82-5.3); RED CELL DISTRIBUTION WIDTH 17.5 % (9.6-15.2)
[2019-11-25] MEDS: INSULIN LISPRO 100 UNITS/ML, PEN SQ-INSULIN SCH ×4 (07:00→19:49)
[2019-11-25] MEDS: ALLOPURINOL 100 MG TABLET PO SCH (07:51)
[2019-11-25] MEDS: ASPIRIN 81 MG TABLET EC PO SCH (07:51)
[2019-11-25] MEDS: SERTRALINE 50MG TABLET PO SCH (07:51)
[2019-11-25] MEDS: AMLODIPINE 10 MG TAB PO SCH (07:51)
[2019-11-25] MEDS: FUROSEMIDE 40 MG/4 ML IV SCH ×3 (07:51→23:49)
[2019-11-25] MEDS: DONEPEZIL 5 MG TABLET PO SCH (07:52)
[2019-11-25] MEDS: SODIUM CHLORIDE FLUSH 10ML SYR IVF SCH ×2 (07:53→21:24)
[2019-11-25 07:59] VITALS: BP 184/73
[2019-11-25] MEDS: ONDANSETRON 2MG/ML, 2ML IVPush PRN (09:43)
[2019-11-25 12:39] VITALS: BP 184/74
[2019-11-25 16:39] VITALS: BP 177/70
[2019-11-25] MEDS: hydrALAzine 20 MG/ML, 1ML IVPush PRN (16:47)
[2019-11-25 18:53] VITALS: BP 167/68
[2019-11-25] MEDS: ATORVASTATIN 10 MG TABLET PO SCH (21:25)
[2019-11-26] VITALS (9 sets, daily range): BP systolic 120–189; BP diastolic 56–76
[2019-11-26] MEDS: PANTOPROZOLE 40MG TABLET PO SCH ×2 (05:03→16:21)
[2019-11-26] MEDS: PIPERACILLIN/TAZO/PMX 2.25GM 50 ML IV SCH ×3 (05:03→22:37)
[2019-11-26 05:55] LABS: BASOPHILS % (AUTO) 0 % (0-1); EOSINOPHILS # (AUTO) 0.04 x10^3/uL (0-0.4); EOSINOPHILS % (AUTO) 1 % (1-7); LYMPHOCYTES # (AUTO) 0.64 x10^3/uL (1-3.4); LYMPHOCYTES % (AUTO) 12 % (22-44); MD NO; MEAN CORPUSCULAR HEMOGLOBIN 29.4 pg (27.0-34.8); MEAN CORPUSCULAR HGB CONC 31.5 g/dL (32.4-35.8); MEAN CORPUSCULAR VOLUME 93.6 fL (80-100); MEAN PLATELET VOLUME 6.6 fL (7.4-10.4); MONOCYTES # (AUTO) 0.61 x10^3/uL (0.2-0.8); MONOCYTES % (AUTO) 12 % (2-9); NEUTROPHILS # (AUTO) 3.91 x10^3/uL (1.8-6.8); NEUTROPHILS % (AUTO) 75 % (42-75); PLATELET COUNT 311 x10^3/uL (130-400); RED BLOOD COUNT 4.26 x10^6/uL (3.82-5.3); RED CELL DISTRIBUTION WIDTH 17.3 % (9.6-15.2)
[2019-11-26 06:08] LABS: ANION GAP 7 mmol/L (5-15); CALCIUM 9.1 mg/dL (8.5-10.1); CHLORIDE 103 mmol/L (98-107)
[2019-11-26 06:11] LABS: CREATININE 2.24 mg/dL (0.55-1.02)
[2019-11-26] MEDS: hydrALAzine 20 MG/ML, 1ML IVPush PRN (07:58)
[2019-11-26] MEDS: FUROSEMIDE 40 MG/4 ML IV SCH ×3 (07:58→23:51)
[2019-11-26] MEDS: SERTRALINE 50MG TABLET PO SCH (07:59)
[2019-11-26] MEDS: ONDANSETRON ODT 4 MG PO PRN (07:59)
[2019-11-26] MEDS: AMLODIPINE 10 MG TAB PO SCH (07:59)
[2019-11-26] MEDS: DONEPEZIL 5 MG TABLET PO SCH (07:59)
[2019-11-26] MEDS: ASPIRIN 81 MG TABLET EC PO SCH (07:59)
[2019-11-26] MEDS: INSULIN LISPRO 100 UNITS/ML, PEN SQ-INSULIN SCH ×4 (08:00→20:26)
[2019-11-26] MEDS: ALLOPURINOL 100 MG TABLET PO SCH (08:00)
[2019-11-26] MEDS: SODIUM CHLORIDE FLUSH 10ML SYR IVF SCH ×2 (08:00→20:48)
[2019-11-26] MEDS ORDERED: METOCLOPRAMIDE 5 MG/ML, 2ML IVPush PRN (10:30)
[2019-11-26] MEDS ORDERED: ISOSORBIDE DINITRATE 10 MG TABLET PO SCH (11:00)
[2019-11-26] MEDS: ISOSORBIDE DINITRATE 10 MG TABLET PO SCH ×3 (11:30→22:37)
[2019-11-26] MEDS: DOXAZOSIN 2MG TABLET PO SCH ×2 (11:32→20:47)
[2019-11-26] MEDS: SODIUM CHLORIDE NASAL SPRAY 45ML BOTTLE NAS PRN (11:34)
[2019-11-26] MEDS ORDERED: ALPRazolam 1MG TAB PO PRN (15:00)
[2019-11-26] MEDS: ONDANSETRON 2MG/ML, 2ML IVPush PRN (15:21)
[2019-11-26] MEDS: ALPRazolam 1MG TAB PO PRN (15:24)
[2019-11-26] MEDS: CARVEDILOL 25 MG TABLET PO SCH (17:30)
[2019-11-26] MEDS: ATORVASTATIN 10 MG TABLET PO SCH (20:47)
[2019-11-27] VITALS (8 sets, daily range): BP systolic 129–173; BP diastolic 55–76
[2019-11-27] MEDS: PANTOPROZOLE 40MG TABLET PO SCH ×2 (05:58→16:50)
[2019-11-27] MEDS: PIPERACILLIN/TAZO/PMX 2.25GM 50 ML IV SCH ×3 (05:59→22:38)
[2019-11-27] MEDS: CARVEDILOL 25 MG TABLET PO SCH ×2 (05:59→18:10)
[2019-11-27 06:07] LABS: ANION GAP 4 mmol/L (5-15); CALCIUM 8.6 mg/dL (8.5-10.1); CHLORIDE 104 mmol/L (98-107); CREATININE 2.24 mg/dL (0.55-1.02)
[2019-11-27] MEDS: INSULIN LISPRO 100 UNITS/ML, PEN SQ-INSULIN SCH ×4 (07:00→19:51)
[2019-11-27] MEDS: ONDANSETRON ODT 4 MG PO PRN ×2 (08:50→16:50)
[2019-11-27] MEDS: FUROSEMIDE 40 MG/4 ML IV SCH ×2 (08:50→16:50)
[2019-11-27] MEDS: ISOSORBIDE DINITRATE 10 MG TABLET PO SCH ×3 (08:51→20:01)
[2019-11-27] MEDS: DONEPEZIL 5 MG TABLET PO SCH (08:51)
[2019-11-27] MEDS: DOXAZOSIN 2MG TABLET PO SCH ×2 (08:52→20:01)
[2019-11-27] MEDS: ASPIRIN 81 MG TABLET EC PO SCH (08:52)
[2019-11-27] MEDS: SODIUM CHLORIDE FLUSH 10ML SYR IVF SCH ×2 (08:52→20:00)
[2019-11-27] MEDS: SERTRALINE 50MG TABLET PO SCH (08:52)
[2019-11-27] MEDS: AMLODIPINE 10 MG TAB PO SCH (08:52)
[2019-11-27] MEDS: ALLOPURINOL 100 MG TABLET PO SCH (08:52)
[2019-11-27] MEDS ORDERED: DOXAZOSIN 2MG TABLET PO ONE (11:00)
[2019-11-27] MEDS: ATORVASTATIN 10 MG TABLET PO SCH (20:00)
[2019-11-27] MEDS: ALPRazolam 1MG TAB PO PRN (20:06)
[2019-11-28] VITALS (8 sets, daily range): BP systolic 129–171; BP diastolic 54–73
[2019-11-28] MEDS: SODIUM CHLORIDE NASAL SPRAY 45ML BOTTLE NAS PRN (01:37)
[2019-11-28] MEDS: PIPERACILLIN/TAZO/PMX 2.25GM 50 ML IV SCH ×3 (06:00→22:49)
[2019-11-28] MEDS: PANTOPROZOLE 40MG TABLET PO SCH ×2 (06:00→16:29)
[2019-11-28] MEDS: CARVEDILOL 25 MG TABLET PO SCH ×2 (06:00→17:40)
[2019-11-28] MEDS: DONEPEZIL 5 MG TABLET PO SCH (08:13)
[2019-11-28] MEDS: ASPIRIN 81 MG TABLET EC PO SCH (08:13)
[2019-11-28] MEDS: AMLODIPINE 10 MG TAB PO SCH (08:13)
[2019-11-28] MEDS: SERTRALINE 50MG TABLET PO SCH (08:13)
[2019-11-28] MEDS: ALPRazolam 1MG TAB PO PRN (08:14)
[2019-11-28] MEDS: ONDANSETRON ODT 4 MG PO PRN ×2 (08:14→16:29)
[2019-11-28] MEDS: ISOSORBIDE DINITRATE 10 MG TABLET PO SCH ×3 (08:14→21:20)
[2019-11-28] MEDS: ALLOPURINOL 100 MG TABLET PO SCH (08:14)
[2019-11-28] MEDS: DOXAZOSIN 2MG TABLET PO SCH ×2 (08:14→21:20)
[2019-11-28] MEDS: FUROSEMIDE 40 MG/4 ML IV SCH ×2 (08:15→21:19)
[2019-11-28] MEDS: SODIUM CHLORIDE FLUSH 10ML SYR IVF SCH ×2 (08:15→21:00)
[2019-11-28] MEDS: ATORVASTATIN 10 MG TABLET PO SCH (21:20)
[2019-11-29 01:22] VITALS: BP 152/63
[2019-11-29 01:49] VITALS: BP 153/71
[2019-11-29] MEDS: morphine SULFATE 10 MG/ML, 1ML IVPush PRN (02:25)
[2019-11-29 03:43] LABS: TROPONIN I 0.016 ng/mL (0.000-0.045)
[2019-11-29 03:49] LABS: ANION GAP 5 mmol/L (5-15); CALCIUM 8.3 mg/dL (8.5-10.1); CHLORIDE 106 mmol/L (98-107); CREATININE 2.67 mg/dL (0.55-1.02)
[2019-11-29] MEDS: CARVEDILOL 25 MG TABLET PO SCH ×2 (06:13→18:08)
[2019-11-29] MEDS: PIPERACILLIN/TAZO/PMX 2.25GM 50 ML IV SCH ×2 (06:13→14:43)
[2019-11-29] MEDS: PANTOPROZOLE 40MG TABLET PO SCH ×2 (06:13→18:12)
[2019-11-29 06:57] VITALS: BP 149/91
[2019-11-29] MEDS ORDERED: CALCIUM GLUCONATE 4.6 MEQ in SODIUM CHLORIDE 0.9% 50 ML IV ONE (08:30)
[2019-11-29 08:33] LABS: TROPONIN I < 0.015 ng/mL (0.000-0.045)
[2019-11-29] MEDS: SODIUM CHLORIDE FLUSH 10ML SYR IVF SCH ×2 (09:00→21:33)
[2019-11-29] MEDS: DONEPEZIL 5 MG TABLET PO SCH (09:13)
[2019-11-29] MEDS: ALLOPURINOL 100 MG TABLET PO SCH (09:14)
[2019-11-29] MEDS: ASPIRIN 81 MG TABLET EC PO SCH (09:14)
[2019-11-29] MEDS: AMLODIPINE 10 MG TAB PO SCH (09:14)
[2019-11-29] MEDS: SERTRALINE 50MG TABLET PO SCH (09:14)
[2019-11-29] MEDS: DOXAZOSIN 2MG TABLET PO SCH ×2 (09:14→21:33)
[2019-11-29] MEDS: FUROSEMIDE 40 MG/4 ML IV SCH ×2 (09:15→21:33)
[2019-11-29] MEDS: ONDANSETRON ODT 4 MG PO PRN (09:20)
[2019-11-29] MEDS: ISOSORBIDE DINITRATE 10 MG TABLET PO SCH ×3 (09:20→21:32)
[2019-11-29] MEDS ORDERED: PROMETHAZINE 25MG TABLET PO PRN (11:30)
[2019-11-29] MEDS: METOCLOPRAMIDE 5 MG/ML, 2ML IVPush PRN ×2 (12:00→19:32)
[2019-11-29 14:10] VITALS: BP 129/63
[2019-11-29 14:22] LABS: TROPONIN I < 0.015 ng/mL (0.000-0.045)
[2019-11-29] MEDS: ONDANSETRON 2MG/ML, 2ML IVPush PRN (14:50)
[2019-11-29 17:51] VITALS: BP 158/57
[2019-11-29 18:24] VITALS: BP 147/56
[2019-11-29] MEDS: ATORVASTATIN 10 MG TABLET PO SCH (21:32)
[2019-11-30 00:42] VITALS: BP 143/57
[2019-11-30] MEDS: PIPERACILLIN/TAZO/PMX 2.25GM 50 ML IV SCH (01:37)
[2019-11-30 05:12] LABS: ANION GAP 6 mmol/L (5-15); CALCIUM 8.5 mg/dL (8.5-10.1); CHLORIDE 106 mmol/L (98-107); CREATININE 2.78 mg/dL (0.55-1.02)
[2019-11-30] MEDS: CARVEDILOL 25 MG TABLET PO SCH (05:26)
[2019-11-30] MEDS: PANTOPROZOLE 40MG TABLET PO SCH (05:26)
[2019-11-30] MEDS: ALPRazolam 1MG TAB PO PRN (05:30)
[2019-11-30] MEDS: ONDANSETRON ODT 4 MG PO PRN (06:34)
[2019-11-30 07:52] VITALS: BP 164/96
[2019-11-30] MEDS: ISOSORBIDE DINITRATE 10 MG TABLET PO SCH (08:46)
[2019-11-30] MEDS: AMLODIPINE 10 MG TAB PO SCH (08:46)
[2019-11-30] MEDS: ASPIRIN 81 MG TABLET EC PO SCH (08:47)
[2019-11-30] MEDS: DONEPEZIL 5 MG TABLET PO SCH (08:48)
[2019-11-30] MEDS: SERTRALINE 50MG TABLET PO SCH (08:48)
[2019-11-30] MEDS: DOXAZOSIN 2MG TABLET PO SCH (08:48)
[2019-11-30] MEDS: ALLOPURINOL 100 MG TABLET PO SCH (08:48)
[2019-11-30] MEDS: SODIUM CHLORIDE FLUSH 10ML SYR IVF SCH (08:49)
[2019-11-30] MEDS: FUROSEMIDE 40 MG/4 ML IV SCH (08:49)
[2019-11-30] MEDS ORDERED: DOXA2TAB9 PO (11:22)
[2019-11-30] MEDS ORDERED: HYDR-3342 PO (11:22)
[2019-11-30 14:23] VITALS: BP 150/61
[2019-11-30] MEDS ORDERED: FUROSEMIDE 40 MG/4 ML IV ONE (15:30)
== END 2019-11-30 16:35 | DRG 177 ==
LOC: ED 14:23 → EDIP 15:45 → ICU 20:28 → 4EST 11-23 13:55
PROVIDERS: ADMIT Internal Medicine; ATTEND Family Medicine
DX: J15.6 Pneumonia due to other Gram-negative bacteria (principal); I50.33 Acute on chronic diastolic (congestive) heart failure; J96.22 Acute and chronic respiratory failure with hypercapnia; J96.21 Acute and chronic respiratory failure with hypoxia; I13.0 Hypertensive heart and chronic kidney disease with heart failure and stage 1 through stage 4 chronic kidney disease, or unspecified chronic kidney disease; F13.20 Sedative, hypnotic or anxiolytic dependence, uncomplicated; N18.4 Chronic kidney disease, stage 4 (severe); I48.92 Unspecified atrial flutter; J18.9 Pneumonia, unspecified organism; E11.22 Type 2 diabetes mellitus with diabetic chronic kidney disease; E78.5 Hyperlipidemia, unspecified; F41.9 Anxiety disorder, unspecified; G25.0 Essential tremor; G89.29 Other chronic pain; I05.0 Rheumatic mitral stenosis; I27.20 Pulmonary hypertension, unspecified; J43.9 Emphysema, unspecified; K21.9 Gastro-esophageal reflux disease without esophagitis; D64.9 Anemia, unspecified; M1A.9XX0 Chronic gout, unspecified, without tophus (tophi); Z83.3 Family history of diabetes mellitus; I25.2 Old myocardial infarction; Z87.891 Personal history of nicotine dependence; Z90.710 Acquired absence of both cervix and uterus; Z99.81 Dependence on supplemental oxygen; Z88.6 Allergy status to analgesic agent; Z91.013 Allergy to seafood; Z79.899 Other long term (current) drug therapy; Z79.82 Long term (current) use of aspirin; D57.3 Sickle-cell trait
CPT/HCPCS: 36415; 36600; 71045; 76770; 80048; 80053; 81001; 82803; 82962; 83735; 83880; 84100; 84145; 84484; 85025; 87040; 87081; 93005; 94660; 96374; G0378; J0610; J1940; J2405; J2543; J3370; Q0162; C9113; J0360; J2270; J2765; J7030

== ENCOUNTER 2019-12-26 12:22 | Inpatient (IN) | payer MEDICARE, OTHER ==
[~2019-12-26] VITALS: Ht 165.1 cm; Wt 55.8 kg
[~2019-12-26 12:22] MED LIST changes: -CETI10TA24 PO; +CETI10TA26 PO; -DIGO125T PO; +DIGO125T85 PO; +DOXA2TAB9 PO; +MELA10TA PO
[2019-12-26] MEDS ORDERED: FUROSEMIDE 40 MG/4 ML IV ONE (13:00)
[2019-12-26] MEDS ORDERED: SODIUM CHLORIDE FLUSH 10ML SYR IVF ONE (13:00)
[2019-12-26] MEDS ORDERED: FUROSEMIDE 40 MG/4 ML ONE (13:07)
[2019-12-26 13:08] LABS: ALANINE AMINOTRANSFERASE 13 U/L (12-78); ALBUMIN 3.8 g/dL (3.4-5.0); ANION GAP 8 mmol/L (5-15); CHLORIDE 101 mmol/L (98-107); CREATININE 4.17 mg/dL (0.55-1.02)
[2019-12-26 13:12] LABS: ALKALINE PHOSPHATASE 101 U/L (45-117); BILIRUBIN,TOTAL 1.2 mg/dL (0.2-1.0); TOTAL PROTEIN 7.5 g/dL (6.4-8.2); TROPONIN I < 0.015 ng/mL (0.000-0.045)
[2019-12-26 13:37] LABS: MD YES; MEAN CORPUSCULAR HGB CONC 31.8 g/dL (32.4-35.8); MEAN CORPUSCULAR VOLUME 91.3 fL (80-100); MEAN PLATELET VOLUME 6.7 fL (7.4-10.4); PLATELET COUNT 288 x10^3/uL (130-400); RED BLOOD COUNT 3.75 x10^6/uL (3.82-5.3); RED CELL DISTRIBUTION WIDTH 17.8 % (9.6-15.2)
[2019-12-26 13:39] LABS: ANISOCYTOSIS 1+; EOS#(MANUAL) 0.16 x10^3/uL (0.0-0.4); EOS% (MANUAL) 3 % (1-7); HYPOCHROMIA 1+; LYMPH#(MANUAL) 0.58 x10^3/uL (1-3.4); LYMPHS% (MANUAL) 11 % (22-44); MONOS#(MANUAL) 0.37 x10^3/uL (0.3-2.7); MONOS% (MANUAL) 7 % (2-9); SEG#(MANUAL) 4.19 x10^3/uL (1.8-6.8); SEGS% (MANUAL) 79 % (42-75)
[2019-12-26 13:40] LABS: <PLATELET ESTIMATE> ADEQUATE; <PLT MORPHOLOGY> NORMAL PLT MORPH; TARGET CELLS 1+
--- NOTE | 2019-12-26 14:03 | NUR ---
Dr. Goldman (hospitalist) at bedside
--- NOTE | 2019-12-26 14:10 | NUR ---
Director Patient Financial Services had lab draw 1 set of blood cultures with initial blood draw & director underwriter sales obtained 2nd set of blood dultures with piv placement in preparation for potential infection workup
--- NOTE | 2019-12-26 14:23 | NUR ---
Helped up to commode (1 person assist) to void post lasix. Unable to do so (no urine voided) Helped back onto hospital bed with pillow
[2019-12-26] MEDS ORDERED: ACETAMINOPHEN 325 MG TABLET PO PRN (14:30)
--- NOTE | 2019-12-26 14:40 | NUR ---
Bladder Scan of 120ml. To notify Dr. Goldman so as to avoid romero
--- NOTE | 2019-12-26 15:04 | NUR ---
NEED FOR BUENO CLARIFIED WITH DR. CAMPBELL- STILL WANTS BUENO DESPITE LOW BLADDER VOLUME TO ACCURATELY MEASURE i/O'S SHE IS DIURESED
[2019-12-26] MEDS ORDERED: HEPARIN 5,000 UNITS/ML, 1ML ONE (15:16)
--- NOTE | 2019-12-26 16:44 | NUR ---
ATE 80% OF CARDIAC DIET FOR LUNCH BUENO URIMETER DRAINED OF 100ML CLEAR/YELLOW FLUID PRIOR TO TRANSFER
[2019-12-26 17:30] VITALS: BP 158/64
[2019-12-26] MEDS: FUROSEMIDE 40 MG/4 ML IV SCH ×2 (18:11→21:51)
[2019-12-26] MEDS: HEPARIN 5,000 UNITS/ML, 1ML SQ SCH (18:11)
[2019-12-26] MEDS: CARVEDILOL 25 MG TABLET PO SCH (18:12)
[2019-12-26] MEDS: PANTOPRAZOLE 40MG TABLET PO SCH (18:12)
[2019-12-26] MEDS: ISOSORBIDE DINITRATE 10 MG TABLET PO SCH ×2 (18:13→21:51)
[2019-12-26] MEDS ORDERED: FUROSEMIDE 40 MG/4 ML IV SCH (20:00)
[2019-12-26 20:40] VITALS: BP 121/65
[2019-12-26] MEDS: DOXAZOSIN 2MG TABLET PO SCH (21:51)
[2019-12-26] MEDS: ATORVASTATIN 10 MG TABLET PO SCH (21:51)
[2019-12-27 02:27] VITALS: BP 144/56
[2019-12-27 05:23] LABS: MEAN CORPUSCULAR HEMOGLOBIN 29.2 pg (27.0-34.8); MEAN CORPUSCULAR HGB CONC 31.8 g/dL (32.4-35.8); MEAN CORPUSCULAR VOLUME 91.8 fL (80-100); MEAN PLATELET VOLUME 6.6 fL (7.4-10.4); PLATELET COUNT 280 x10^3/uL (130-400); RED BLOOD COUNT 3.46 x10^6/uL (3.82-5.3); RED CELL DISTRIBUTION WIDTH 17.6 % (9.6-15.2)
[2019-12-27 05:36] LABS: ANION GAP 6 mmol/L (5-15); CALCIUM 8.8 mg/dL (8.5-10.1); CHLORIDE 102 mmol/L (98-107)
[2019-12-27 06:00] LABS: BASOPHILS % (AUTO) 0 % (0-1); EOSINOPHILS % (AUTO) 5 % (1-7); LYMPHOCYTES # (AUTO) 0.88 x10^3/uL (1-3.4); LYMPHOCYTES % (AUTO) 22 % (22-44); MONOCYTES # (AUTO) 0.49 x10^3/uL (0.2-0.8); MONOCYTES % (AUTO) 12 % (2-9); NEUTROPHILS # (AUTO) 2.52 x10^3/uL (1.8-6.8); NEUTROPHILS % (AUTO) 62 % (42-75)
[2019-12-27 06:23] LABS: MD SCAN
[2019-12-27] MEDS: CARVEDILOL 25 MG TABLET PO SCH ×2 (06:41→18:28)
[2019-12-27] MEDS: HEPARIN 5,000 UNITS/ML, 1ML SQ SCH ×2 (06:41→18:28)
[2019-12-27] MEDS: PANTOPRAZOLE 40MG TABLET PO SCH ×2 (06:41→16:52)
[2019-12-27 07:45] VITALS: BP 150/72
[2019-12-27] MEDS: FUROSEMIDE 40 MG/4 ML IV SCH (08:48)
[2019-12-27] MEDS: SERTRALINE 50MG TABLET PO SCH (08:48)
[2019-12-27] MEDS: AMLODIPINE 10 MG TAB PO SCH (08:48)
[2019-12-27] MEDS: DOXAZOSIN 2MG TABLET PO SCH ×2 (08:48→20:50)
[2019-12-27] MEDS: ASPIRIN 81 MG TABLET EC PO SCH (08:49)
[2019-12-27] MEDS: ISOSORBIDE DINITRATE 10 MG TABLET PO SCH ×3 (08:49→20:50)
[2019-12-27] MEDS: FLUTICASONE NASAL SPRAY 16GM NAS SCH ×2 (11:00→20:52)
[2019-12-27] MEDS: FUROSEMIDE 100 MG in SODIUM CHLORIDE 0.9% 90 ML IV PRN (13:05)
[2019-12-27 14:05] VITALS: BP 128/68
[2019-12-27] MEDS ORDERED: ZONI100C29 PO (15:05)
[2019-12-27] MEDS ORDERED: ACETAMINOPHEN 325 MG TABLET PO PRN (16:00)
[2019-12-27] MEDS: ACETAMINOPHEN 325 MG TABLET PO PRN (16:53)
[2019-12-27] MEDS: ATORVASTATIN 10 MG TABLET PO SCH (20:51)
[2019-12-27] MEDS: DONEPEZIL 5 MG TABLET PO SCH (20:51)
[2019-12-27 21:38] VITALS: BP 127/67
[2019-12-28 01:54] VITALS: BP 117/66
[2019-12-28] MEDS: FUROSEMIDE 100 MG in SODIUM CHLORIDE 0.9% 90 ML IV PRN ×2 (02:01→17:51)
[2019-12-28] MEDS: CARVEDILOL 25 MG TABLET PO SCH ×2 (06:01→17:52)
[2019-12-28] MEDS: PANTOPRAZOLE 40MG TABLET PO SCH ×2 (06:01→15:51)
[2019-12-28] MEDS: HEPARIN 5,000 UNITS/ML, 1ML SQ SCH ×2 (06:01→17:52)
[2019-12-28] MEDS ORDERED: CEFTRIAXONE PMX 1GM/50ML 50 ML IV SCH (08:30)
[2019-12-28 08:45] VITALS: BP 139/73
[2019-12-28 09:01] LABS: ANION GAP 7 mmol/L (5-15); CALCIUM 8.2 mg/dL (8.5-10.1); CHLORIDE 101 mmol/L (98-107)
[2019-12-28 09:02] LABS: CREATININE 4.56 mg/dL (0.55-1.02)
[2019-12-28 09:27] LABS: MD YES; MEAN CORPUSCULAR HEMOGLOBIN 29.6 pg (27.0-34.8); MEAN CORPUSCULAR HGB CONC 32.2 g/dL (32.4-35.8); MEAN PLATELET VOLUME 6.5 fL (7.4-10.4); PLATELET COUNT 238 x10^3/uL (130-400); RED BLOOD COUNT 3.26 x10^6/uL (3.82-5.3); RED CELL DISTRIBUTION WIDTH 17.5 % (9.6-15.2)
[2019-12-28 09:34] LABS: EOS#(MANUAL) 0.25 x10^3/uL (0.0-0.4); EOS% (MANUAL) 6 % (1-7); LYMPHS% (MANUAL) 17 % (22-44); MONOS#(MANUAL) 0.33 x10^3/uL (0.3-2.7); MONOS% (MANUAL) 8 % (2-9); SEG#(MANUAL) 2.83 x10^3/uL (1.8-6.8); SEGS% (MANUAL) 69 % (42-75)
[2019-12-28 09:36] LABS: <PLATELET ESTIMATE> ADEQUATE; <PLT MORPHOLOGY> NORMAL PLT MORPH; ANISOCYTOSIS 1+; HYPOCHROMIA 1+; TARGET CELLS 1+
[2019-12-28] MEDS: FLUTICASONE NASAL SPRAY 16GM NAS SCH ×2 (09:50→20:11)
[2019-12-28] MEDS: AMLODIPINE 10 MG TAB PO SCH (09:50)
[2019-12-28] MEDS: ASPIRIN 81 MG TABLET EC PO SCH (09:50)
[2019-12-28] MEDS: DOXAZOSIN 2MG TABLET PO SCH ×2 (09:50→20:12)
[2019-12-28] MEDS: DOXYCYCLINE 100MG TABLET PO SCH ×2 (09:51→20:13)
[2019-12-28] MEDS: ISOSORBIDE DINITRATE 10 MG TABLET PO SCH ×3 (09:51→20:13)
[2019-12-28] MEDS: SERTRALINE 50MG TABLET PO SCH (09:52)
[2019-12-28 14:40] VITALS: BP 126/72
[2019-12-28] MEDS: ONDANSETRON ODT 4 MG PO PRN (18:15)
[2019-12-28 19:39] VITALS: BP 127/66
[2019-12-28] MEDS: ATORVASTATIN 10 MG TABLET PO SCH (20:12)
[2019-12-28] MEDS: DONEPEZIL 5 MG TABLET PO SCH (20:12)
[2019-12-29 01:55] VITALS: BP 128/66
[2019-12-29 05:35] LABS: ANION GAP 6 mmol/L (5-15); CALCIUM 8.2 mg/dL (8.5-10.1); CHLORIDE 102 mmol/L (98-107)
[2019-12-29] MEDS: FUROSEMIDE 100 MG in SODIUM CHLORIDE 0.9% 90 ML IV PRN ×2 (05:59→21:27)
[2019-12-29] MEDS: CARVEDILOL 25 MG TABLET PO SCH ×2 (06:00→18:03)
[2019-12-29] MEDS: HEPARIN 5,000 UNITS/ML, 1ML SQ SCH ×2 (06:00→18:02)
[2019-12-29] MEDS: ACETAMINOPHEN 325 MG TABLET PO PRN (06:01)
[2019-12-29] MEDS: PANTOPRAZOLE 40MG TABLET PO SCH ×2 (06:01→18:05)
[2019-12-29] MEDS: FLUTICASONE NASAL SPRAY 16GM NAS SCH ×2 (09:00→21:24)
[2019-12-29] MEDS: AMLODIPINE 10 MG TAB PO SCH (09:00)
[2019-12-29] MEDS ORDERED: CEFDINIR 300 MG CAPSULE PO SCH (09:00)
[2019-12-29] MEDS: SERTRALINE 50MG TABLET PO SCH (09:01)
[2019-12-29] MEDS: DOXAZOSIN 2MG TABLET PO SCH ×2 (09:01→21:23)
[2019-12-29] MEDS: ASPIRIN 81 MG TABLET EC PO SCH (09:01)
[2019-12-29] MEDS: DOXYCYCLINE 100MG TABLET PO SCH ×2 (09:02→21:24)
[2019-12-29] MEDS: ISOSORBIDE DINITRATE 10 MG TABLET PO SCH ×3 (09:02→21:23)
[2019-12-29 09:30] VITALS: BP 129/66
[2019-12-29 13:45] VITALS: BP 131/65
[2019-12-29 20:35] VITALS: BP 134/68
[2019-12-29] MEDS: ATORVASTATIN 10 MG TABLET PO SCH (21:23)
[2019-12-29] MEDS: DONEPEZIL 5 MG TABLET PO SCH (21:23)
[2019-12-30] MEDS: ACETAMINOPHEN 325 MG TABLET PO PRN (00:39)
[2019-12-30 01:51] VITALS: BP 129/65
[2019-12-30 05:12] LABS: CHLORIDE 102 mmol/L (98-107)
[2019-12-30 05:28] LABS: ANION GAP 7 mmol/L (5-15); CALCIUM 8.3 mg/dL (8.5-10.1); CREATININE 4.18 mg/dL (0.55-1.02)
[2019-12-30 06:20] VITALS: BP 125/61
[2019-12-30] MEDS: CARVEDILOL 25 MG TABLET PO SCH ×2 (06:24→17:40)
[2019-12-30] MEDS: HEPARIN 5,000 UNITS/ML, 1ML SQ SCH ×2 (06:24→17:41)
[2019-12-30] MEDS: PANTOPRAZOLE 40MG TABLET PO SCH ×2 (06:24→21:05)
[2019-12-30] MEDS: ASPIRIN 81 MG TABLET EC PO SCH (10:36)
[2019-12-30] MEDS: ISOSORBIDE DINITRATE 10 MG TABLET PO SCH ×3 (10:36→20:57)
[2019-12-30] MEDS: SERTRALINE 50MG TABLET PO SCH (10:37)
[2019-12-30] MEDS: CEFDINIR 300 MG CAPSULE PO SCH (10:37)
[2019-12-30] MEDS: DOXAZOSIN 2MG TABLET PO SCH ×2 (10:37→20:56)
[2019-12-30] MEDS: AMLODIPINE 10 MG TAB PO SCH (10:38)
[2019-12-30] MEDS: DOXYCYCLINE 100MG TABLET PO SCH ×2 (10:38→20:56)
[2019-12-30] MEDS: FLUTICASONE NASAL SPRAY 16GM NAS SCH ×2 (10:38→20:58)
[2019-12-30] MEDS ORDERED: FUROSEMIDE 20 MG/2 ML IV ONE (12:00)
[2019-12-30] MEDS: METOLAZONE 5 MG TABLET PO SCH ×2 (12:14→20:58)
[2019-12-30] MEDS ORDERED: FUROSEMIDE 40 MG/4 ML IV ONE (12:30)
[2019-12-30 13:40] VITALS: BP 136/75
[2019-12-30] MEDS: FUROSEMIDE 100 MG in SODIUM CHLORIDE 0.9% 90 ML IV PRN (13:46)
[2019-12-30 20:01] VITALS: BP 137/69
[2019-12-30] MEDS: DONEPEZIL 5 MG TABLET PO SCH (20:56)
[2019-12-30] MEDS: ATORVASTATIN 10 MG TABLET PO SCH (20:56)
[2019-12-31] VITALS (7 sets, daily range): BP systolic 127–157; BP diastolic 65–72
[2019-12-31] MEDS: ACETAMINOPHEN 325 MG TABLET PO PRN ×3 (00:51→20:14)
[2019-12-31] MEDS: ONDANSETRON ODT 4 MG PO PRN ×2 (02:13→11:59)
[2019-12-31] MEDS: FUROSEMIDE 100 MG in SODIUM CHLORIDE 0.9% 90 ML IV PRN ×2 (04:17→17:00)
[2019-12-31 05:40] LABS: CHLORIDE 101 mmol/L (98-107)
[2019-12-31 05:42] LABS: MEAN CORPUSCULAR HEMOGLOBIN 29.5 pg (27.0-34.8); MEAN CORPUSCULAR HGB CONC 32.5 g/dL (32.4-35.8); MEAN CORPUSCULAR VOLUME 90.9 fL (80-100); MEAN PLATELET VOLUME 6.8 fL (7.4-10.4); PLATELET COUNT 230 x10^3/uL (130-400); RED BLOOD COUNT 3.09 x10^6/uL (3.82-5.3); RED CELL DISTRIBUTION WIDTH 17.5 % (9.6-15.2)
[2019-12-31 05:49] LABS: MD YES
[2019-12-31 05:51] LABS: % IRON SATURATION 14 % (20-55); ALANINE AMINOTRANSFERASE 17 U/L (12-78); ALKALINE PHOSPHATASE 85 U/L (45-117); ANION GAP 6 mmol/L (5-15); BILIRUBIN,TOTAL 0.9 mg/dL (0.2-1.0); CALCIUM 8.4 mg/dL (8.5-10.1); CREATININE 3.88 mg/dL (0.55-1.02); IRON LEVEL 30 mcg/dL (50-170); TOTAL IRON BINDING CAPACITY 221 mcg/dL (250-450); TOTAL PROTEIN 6.4 g/dL (6.4-8.2)
[2019-12-31 05:55] LABS: <PLATELET ESTIMATE> ADEQUATE; <PLT MORPHOLOGY> NORMAL PLT MORPH; ANISOCYTOSIS 1+; BAND#(MANUAL) 0.05 x10^3/uL; BANDS%(MANUAL) 1 % (0-7); EOS#(MANUAL) 0.18 x10^3/uL (0.0-0.4); EOS% (MANUAL) 4 % (1-7); HYPOCHROMIA 1+; LYMPH#(MANUAL) 0.36 x10^3/uL (1-3.4); LYMPHS% (MANUAL) 8 % (22-44); MONOS#(MANUAL) 0.54 x10^3/uL (0.3-2.7); MONOS% (MANUAL) 12 % (2-9); SEG#(MANUAL) 3.38 x10^3/uL (1.8-6.8); SEGS% (MANUAL) 75 % (42-75); TARGET CELLS 1+
[2019-12-31] MEDS: PANTOPRAZOLE 40MG TABLET PO SCH ×2 (06:48→17:19)
[2019-12-31] MEDS: HEPARIN 5,000 UNITS/ML, 1ML SQ SCH ×2 (06:48→18:21)
[2019-12-31] MEDS: CARVEDILOL 25 MG TABLET PO SCH ×2 (06:48→17:11)
[2019-12-31] MEDS: FLUTICASONE NASAL SPRAY 16GM NAS SCH ×2 (11:14→20:16)
[2019-12-31] MEDS: CEFDINIR 300 MG CAPSULE PO SCH (11:15)
[2019-12-31] MEDS: DOXYCYCLINE 100MG TABLET PO SCH ×2 (11:15→20:15)
[2019-12-31] MEDS: ISOSORBIDE DINITRATE 10 MG TABLET PO SCH ×3 (11:15→20:15)
[2019-12-31] MEDS: SERTRALINE 50MG TABLET PO SCH (11:15)
[2019-12-31] MEDS: AMLODIPINE 10 MG TAB PO SCH (11:16)
[2019-12-31] MEDS: METOLAZONE 5 MG TABLET PO SCH ×2 (11:16→20:14)
[2019-12-31] MEDS: ASPIRIN 81 MG TABLET EC PO SCH (11:16)
[2019-12-31] MEDS: DOXAZOSIN 2MG TABLET PO SCH ×2 (11:16→20:15)
[2019-12-31] MEDS: ATORVASTATIN 10 MG TABLET PO SCH (20:12)
[2019-12-31] MEDS: DONEPEZIL 5 MG TABLET PO SCH (20:16)
[2020-01-01 00:16] VITALS: BP 133/66
[2020-01-01] MEDS: FUROSEMIDE 100 MG in SODIUM CHLORIDE 0.9% 90 ML IV PRN ×3 (01:32→23:15)
[2020-01-01 04:47] VITALS: BP 125/58
[2020-01-01] MEDS: CARVEDILOL 25 MG TABLET PO SCH ×2 (05:02→17:44)
[2020-01-01] MEDS: ACETAMINOPHEN 325 MG TABLET PO PRN (05:02)
[2020-01-01] MEDS: HEPARIN 5,000 UNITS/ML, 1ML SQ SCH ×2 (05:02→17:45)
[2020-01-01] MEDS: PANTOPRAZOLE 40MG TABLET PO SCH ×2 (05:02→17:55)
[2020-01-01 06:03] LABS: ALBUMIN 2.8 g/dL (3.4-5.0); ANION GAP 6 mmol/L (5-15); CALCIUM 8.7 mg/dL (8.5-10.1); CHLORIDE 100 mmol/L (98-107); CREATININE 3.64 mg/dL (0.55-1.02)
[2020-01-01 06:16] LABS: MEAN CORPUSCULAR HEMOGLOBIN 29.3 pg (27.0-34.8); MEAN CORPUSCULAR HGB CONC 32.1 g/dL (32.4-35.8); MEAN CORPUSCULAR VOLUME 91.2 fL (80-100); MEAN PLATELET VOLUME 7.4 fL (7.4-10.4); PLATELET COUNT 225 x10^3/uL (130-400); RED BLOOD COUNT 3.06 x10^6/uL (3.82-5.3); RED CELL DISTRIBUTION WIDTH 17.7 % (9.6-15.2)
[2020-01-01 06:40] LABS: MD YES
[2020-01-01 06:42] LABS: ANISOCYTOSIS 1+; EOS#(MANUAL) 0.16 x10^3/uL (0.0-0.4); EOS% (MANUAL) 3 % (1-7); HYPOCHROMIA 1+; LYMPH#(MANUAL) 0.37 x10^3/uL (1-3.4); LYMPHS% (MANUAL) 7 % (22-44); MONOS#(MANUAL) 0.42 x10^3/uL (0.3-2.7); MONOS% (MANUAL) 8 % (2-9); SEG#(MANUAL) 4.35 x10^3/uL (1.8-6.8); SEGS% (MANUAL) 82 % (42-75); TARGET CELLS 1+
[2020-01-01 06:43] LABS: <PLATELET ESTIMATE> ADEQUATE; <PLT MORPHOLOGY> NORMAL PLT MORPH
[2020-01-01 08:11] VITALS: BP 133/72
[2020-01-01] MEDS: DOXYCYCLINE 100MG TABLET PO SCH ×2 (09:13→20:02)
[2020-01-01] MEDS: METOLAZONE 5 MG TABLET PO SCH ×2 (09:13→20:02)
[2020-01-01] MEDS: ISOSORBIDE DINITRATE 10 MG TABLET PO SCH ×3 (09:13→20:02)
[2020-01-01] MEDS: ASPIRIN 81 MG TABLET EC PO SCH (09:13)
[2020-01-01] MEDS: SERTRALINE 50MG TABLET PO SCH (09:14)
[2020-01-01] MEDS: AMLODIPINE 10 MG TAB PO SCH (09:14)
[2020-01-01] MEDS: DOXAZOSIN 2MG TABLET PO SCH ×2 (09:14→20:02)
[2020-01-01] MEDS: CEFDINIR 300 MG CAPSULE PO SCH (09:14)
[2020-01-01] MEDS: FLUTICASONE NASAL SPRAY 16GM NAS SCH ×2 (09:15→20:02)
[2020-01-01 15:15] VITALS: BP 126/73
[2020-01-01 17:42] VITALS: BP 131/55
[2020-01-01 19:56] VITALS: BP 128/55
[2020-01-01] MEDS: DONEPEZIL 5 MG TABLET PO SCH (20:02)
[2020-01-01] MEDS: ATORVASTATIN 10 MG TABLET PO SCH (20:02)
[2020-01-02 00:13] VITALS: BP 131/62
[2020-01-02 06:03] LABS: CALCIUM 8.8 mg/dL (8.5-10.1); CHLORIDE 99 mmol/L (98-107)
[2020-01-02 06:06] LABS: ANION GAP 6 mmol/L (5-15); CREATININE 3.48 mg/dL (0.55-1.02)
[2020-01-02] MEDS: PANTOPRAZOLE 40MG TABLET PO SCH ×2 (06:16→16:12)
[2020-01-02] MEDS: CARVEDILOL 25 MG TABLET PO SCH ×2 (06:16→17:48)
[2020-01-02] MEDS: HEPARIN 5,000 UNITS/ML, 1ML SQ SCH ×2 (06:17→17:48)
[2020-01-02 06:18] LABS: MEAN CORPUSCULAR HEMOGLOBIN 29.2 pg (27.0-34.8); MEAN CORPUSCULAR HGB CONC 32.4 g/dL (32.4-35.8); MEAN CORPUSCULAR VOLUME 89.9 fL (80-100); PLATELET COUNT 242 x10^3/uL (130-400); RED BLOOD COUNT 3.16 x10^6/uL (3.82-5.3)
[2020-01-02 06:30] LABS: BASOPHILS % (AUTO) 0 % (0-1); EOSINOPHILS # (AUTO) 0.11 x10^3/uL (0-0.4); EOSINOPHILS % (AUTO) 2 % (1-7); LYMPHOCYTES # (AUTO) 0.64 x10^3/uL (1-3.4); LYMPHOCYTES % (AUTO) 14 % (22-44); MD MORPH REVIEW ONLY; MONOCYTES # (AUTO) 0.55 x10^3/uL (0.2-0.8); MONOCYTES % (AUTO) 12 % (2-9); NEUTROPHILS # (AUTO) 3.23 x10^3/uL (1.8-6.8); NEUTROPHILS % (AUTO) 72 % (42-75); RED CELL DISTRIBUTION WIDTH 17.5 % (9.6-15.2)
[2020-01-02 06:31] LABS: ANISOCYTOSIS 1+; OVALOCYTES 1+; TEAR DROPS 1+
[2020-01-02 06:32] LABS: <PLATELET ESTIMATE> ADEQUATE; <PLT MORPHOLOGY> NORMAL PLT MORPH; TARGET CELLS 1+
[2020-01-02 08:42] VITALS: BP 137/55
[2020-01-02] MEDS: CEFDINIR 300 MG CAPSULE PO SCH (09:04)
[2020-01-02] MEDS: ISOSORBIDE DINITRATE 10 MG TABLET PO SCH ×3 (09:05→21:35)
[2020-01-02] MEDS: AMLODIPINE 10 MG TAB PO SCH (09:05)
[2020-01-02] MEDS: DOXYCYCLINE 100MG TABLET PO SCH ×2 (09:05→21:35)
[2020-01-02] MEDS: ASPIRIN 81 MG TABLET EC PO SCH (09:05)
[2020-01-02] MEDS: DOXAZOSIN 2MG TABLET PO SCH ×2 (09:05→21:36)
[2020-01-02] MEDS: METOLAZONE 5 MG TABLET PO SCH ×2 (09:05→21:34)
[2020-01-02] MEDS: SERTRALINE 50MG TABLET PO SCH (09:06)
[2020-01-02] MEDS: FLUTICASONE NASAL SPRAY 16GM NAS SCH ×2 (09:12→21:34)
[2020-01-02] MEDS: ONDANSETRON 2MG/ML, 2ML IVPush PRN ×2 (09:17→18:16)
[2020-01-02 12:57] VITALS: BP 124/66
[2020-01-02 16:15] VITALS: BP 145/79
[2020-01-02 19:07] VITALS: BP 150/61
[2020-01-02] MEDS: ATORVASTATIN 10 MG TABLET PO SCH (21:34)
[2020-01-02] MEDS: DONEPEZIL 5 MG TABLET PO SCH (21:35)
[2020-01-02] MEDS: FUROSEMIDE 100 MG in SODIUM CHLORIDE 0.9% 90 ML IV PRN (23:22)
[2020-01-02 23:28] VITALS: BP 122/59
[2020-01-03 01:37] VITALS: BP 132/69
[2020-01-03 06:12] LABS: ANION GAP 7 mmol/L (5-15); CALCIUM 8.9 mg/dL (8.5-10.1); CHLORIDE 99 mmol/L (98-107)
[2020-01-03 06:15] LABS: CREATININE 3.57 mg/dL (0.55-1.02)
[2020-01-03 06:31] VITALS: BP 133/59
[2020-01-03 06:34] LABS: MEAN CORPUSCULAR HEMOGLOBIN 29.5 pg (27.0-34.8); MEAN CORPUSCULAR HGB CONC 32.9 g/dL (32.4-35.8); MEAN CORPUSCULAR VOLUME 89.6 fL (80-100); MEAN PLATELET VOLUME 7.2 fL (7.4-10.4); PLATELET COUNT 229 x10^3/uL (130-400); RED CELL DISTRIBUTION WIDTH 17.1 % (9.6-15.2)
[2020-01-03] MEDS: PANTOPRAZOLE 40MG TABLET PO SCH ×2 (06:34→16:22)
[2020-01-03] MEDS: CARVEDILOL 25 MG TABLET PO SCH ×2 (06:34→18:10)
[2020-01-03] MEDS: HEPARIN 5,000 UNITS/ML, 1ML SQ SCH ×2 (06:35→18:09)
[2020-01-03 07:42] LABS: MD YES
[2020-01-03 07:45] LABS: <PLATELET ESTIMATE> ADEQUATE; <PLT MORPHOLOGY> NORMAL PLT MORPH; ANISOCYTOSIS 1+; BAND#(MANUAL) 0.04 x10^3/uL; BANDS%(MANUAL) 1 % (0-7); EOS#(MANUAL) 0.23 x10^3/uL (0.0-0.4); EOS% (MANUAL) 6 % (1-7); LYMPH#(MANUAL) 0.68 x10^3/uL (1-3.4); LYMPHS% (MANUAL) 18 % (22-44); MONOS#(MANUAL) 0.08 x10^3/uL (0.3-2.7); MONOS% (MANUAL) 2 % (2-9); SEG#(MANUAL) 2.77 x10^3/uL (1.8-6.8); SEGS% (MANUAL) 73 % (42-75)
[2020-01-03 07:46] LABS: HYPOCHROMIA 1+; TARGET CELLS 1+
[2020-01-03] MEDS: ONDANSETRON 2MG/ML, 2ML IVPush PRN (08:36)
[2020-01-03] MEDS: FUROSEMIDE 100 MG in SODIUM CHLORIDE 0.9% 90 ML IV PRN ×2 (08:36→19:50)
[2020-01-03] MEDS: SERTRALINE 50MG TABLET PO SCH (08:51)
[2020-01-03] MEDS: ASPIRIN 81 MG TABLET EC PO SCH (08:51)
[2020-01-03] MEDS: AMLODIPINE 10 MG TAB PO SCH (08:51)
[2020-01-03] MEDS: DOXAZOSIN 2MG TABLET PO SCH ×2 (08:51→19:51)
[2020-01-03] MEDS: ISOSORBIDE DINITRATE 10 MG TABLET PO SCH ×3 (08:51→19:51)
[2020-01-03] MEDS: DOXYCYCLINE 100MG TABLET PO SCH ×2 (08:52→19:51)
[2020-01-03] MEDS: METOLAZONE 5 MG TABLET PO SCH ×2 (08:52→19:50)
[2020-01-03] MEDS: CEFDINIR 300 MG CAPSULE PO SCH (08:52)
[2020-01-03] MEDS: FLUTICASONE NASAL SPRAY 16GM NAS SCH ×2 (08:58→19:49)
[2020-01-03] MEDS ORDERED: FUROSEMIDE 20 MG/2 ML IV ONE (09:00)
[2020-01-03] MEDS ORDERED: FUROSEMIDE 40 MG/4 ML IV ONE ×2 (09:00)
[2020-01-03 14:06] VITALS: BP 144/73
[2020-01-03] MEDS: DONEPEZIL 5 MG TABLET PO SCH (19:50)
[2020-01-03] MEDS: ATORVASTATIN 10 MG TABLET PO SCH (19:51)
[2020-01-03 19:54] VITALS: BP 127/70
[2020-01-03] MEDS: ONDANSETRON ODT 4 MG PO PRN (19:56)
[2020-01-04 01:45] VITALS: BP 148/72
[2020-01-04] MEDS: FUROSEMIDE 100 MG in SODIUM CHLORIDE 0.9% 90 ML IV PRN ×2 (03:37→23:06)
[2020-01-04] MEDS: PANTOPRAZOLE 40MG TABLET PO SCH ×2 (05:48→15:57)
[2020-01-04] MEDS: CARVEDILOL 25 MG TABLET PO SCH ×2 (05:48→17:41)
[2020-01-04] MEDS: HEPARIN 5,000 UNITS/ML, 1ML SQ SCH ×2 (05:49→17:41)
[2020-01-04 06:19] LABS: ANION GAP 7 mmol/L (5-15); CHLORIDE 98 mmol/L (98-107); CREATININE 3.48 mg/dL (0.55-1.02)
[2020-01-04 06:27] LABS: MEAN CORPUSCULAR HEMOGLOBIN 29.1 pg (27.0-34.8); MEAN CORPUSCULAR HGB CONC 32.4 g/dL (32.4-35.8); MEAN CORPUSCULAR VOLUME 89.9 fL (80-100); MEAN PLATELET VOLUME 7.3 fL (7.4-10.4); PLATELET COUNT 236 x10^3/uL (130-400); RED BLOOD COUNT 3.01 x10^6/uL (3.82-5.3)
[2020-01-04 06:56] LABS: MD YES
[2020-01-04 06:58] LABS: EOS#(MANUAL) 0.17 x10^3/uL (0.0-0.4); EOS% (MANUAL) 4 % (1-7); LYMPH#(MANUAL) 0.38 x10^3/uL (1-3.4); LYMPHS% (MANUAL) 9 % (22-44); MONOS#(MANUAL) 0.34 x10^3/uL (0.3-2.7); MONOS% (MANUAL) 8 % (2-9); SEG#(MANUAL) 3.32 x10^3/uL (1.8-6.8); SEGS% (MANUAL) 79 % (42-75)
[2020-01-04 06:59] LABS: <PLATELET ESTIMATE> ADEQUATE; <PLT MORPHOLOGY> NORMAL PLT MORPH; ANISOCYTOSIS 1+; HYPOCHROMIA 1+; OVALOCYTES 1+
[2020-01-04] MEDS: ONDANSETRON ODT 4 MG PO PRN (07:20)
[2020-01-04 07:27] VITALS: BP 153/74
[2020-01-04] MEDS: ONDANSETRON ODT 4 MG PO SCH ×4 (08:04→21:20)
[2020-01-04] MEDS: SERTRALINE 50MG TABLET PO SCH (08:26)
[2020-01-04] MEDS: ASPIRIN 81 MG TABLET EC PO SCH (08:26)
[2020-01-04] MEDS: AMLODIPINE 10 MG TAB PO SCH (08:27)
[2020-01-04] MEDS: DOXAZOSIN 2MG TABLET PO SCH ×2 (08:27→21:17)
[2020-01-04] MEDS: ISOSORBIDE DINITRATE 10 MG TABLET PO SCH ×3 (08:27→21:17)
[2020-01-04] MEDS: METOLAZONE 5 MG TABLET PO SCH ×2 (08:27→21:18)
[2020-01-04] MEDS: FLUTICASONE NASAL SPRAY 16GM NAS SCH ×2 (08:33→21:15)
[2020-01-04] MEDS ORDERED: FUROSEMIDE 20 MG/2 ML IV ONE (11:00)
[2020-01-04 12:09] VITALS: BP 137/66
[2020-01-04 16:01] VITALS: BP 141/70
[2020-01-04 20:25] VITALS: BP 147/68
[2020-01-04] MEDS: DONEPEZIL 5 MG TABLET PO SCH (21:17)
[2020-01-04] MEDS: ATORVASTATIN 10 MG TABLET PO SCH (21:18)
[2020-01-05 00:14] VITALS: BP 148/66
[2020-01-05] MEDS ORDERED: NITROGLYCERIN 0.4 MG BOTTLE (25 TABS) SL ONE (01:18)
[2020-01-05 01:19] VITALS: BP 134/67
[2020-01-05 01:26] VITALS: BP 139/61
[2020-01-05] MEDS ORDERED: NITROGLYCERIN 0.4 MG BOTTLE (25 TABS) SL PRN (01:30)
[2020-01-05] MEDS ORDERED: NITROGLYCERIN 0.4 MG/SPRAY SL PRN (01:30)
[2020-01-05 06:02] LABS: ALBUMIN 2.9 g/dL (3.4-5.0); ANION GAP 6 mmol/L (5-15); CALCIUM 8.8 mg/dL (8.5-10.1); CHLORIDE 96 mmol/L (98-107); CREATININE 3.46 mg/dL (0.55-1.02)
[2020-01-05 06:05] LABS: MEAN CORPUSCULAR HEMOGLOBIN 29.5 pg (27.0-34.8); MEAN CORPUSCULAR HGB CONC 33.2 g/dL (32.4-35.8); MEAN PLATELET VOLUME 7.2 fL (7.4-10.4); PLATELET COUNT 248 x10^3/uL (130-400); RED BLOOD COUNT 2.99 x10^6/uL (3.82-5.3)
[2020-01-05] MEDS: CARVEDILOL 25 MG TABLET PO SCH ×2 (06:39→18:02)
[2020-01-05] MEDS: PANTOPRAZOLE 40MG TABLET PO SCH ×2 (06:39→16:27)
[2020-01-05] MEDS: HEPARIN 5,000 UNITS/ML, 1ML SQ SCH ×2 (06:43→18:02)
[2020-01-05] MEDS: ONDANSETRON ODT 4 MG PO SCH ×4 (06:44→22:05)
[2020-01-05 06:47] VITALS: BP 149/63
[2020-01-05 06:51] LABS: MD YES
[2020-01-05 06:56] LABS: ANISOCYTOSIS 1+; EOS#(MANUAL) 0.04 x10^3/uL (0.0-0.4); EOS% (MANUAL) 1 % (1-7); LYMPH#(MANUAL) 0.53 x10^3/uL (1-3.4); LYMPHS% (MANUAL) 12 % (22-44); MONOS#(MANUAL) 0.31 x10^3/uL (0.3-2.7); MONOS% (MANUAL) 7 % (2-9); SEG#(MANUAL) 3.52 x10^3/uL (1.8-6.8); SEGS% (MANUAL) 80 % (42-75)
[2020-01-05 06:58] LABS: <PLATELET ESTIMATE> ADEQUATE; <PLT MORPHOLOGY> NORMAL PLT MORPH
[2020-01-05] MEDS: FLUTICASONE NASAL SPRAY 16GM NAS SCH ×2 (09:05→22:03)
[2020-01-05] MEDS: AMLODIPINE 10 MG TAB PO SCH (09:06)
[2020-01-05] MEDS: SERTRALINE 50MG TABLET PO SCH (09:06)
[2020-01-05] MEDS: ISOSORBIDE DINITRATE 10 MG TABLET PO SCH ×3 (09:06→22:06)
[2020-01-05] MEDS: METOLAZONE 5 MG TABLET PO SCH ×2 (09:06→22:05)
[2020-01-05] MEDS: ASPIRIN 81 MG TABLET EC PO SCH (09:06)
[2020-01-05] MEDS: DOXAZOSIN 2MG TABLET PO SCH ×2 (09:06→22:08)
[2020-01-05] MEDS: FUROSEMIDE 100 MG in SODIUM CHLORIDE 0.9% 90 ML IV PRN ×3 (09:09→22:42)
[2020-01-05] MEDS ORDERED: FUROSEMIDE 40 MG/4 ML IV ONE (12:30)
[2020-01-05 12:41] VITALS: BP 127/64
[2020-01-05 20:23] VITALS: BP 132/66
[2020-01-05] MEDS: DONEPEZIL 5 MG TABLET PO SCH (22:07)
[2020-01-05] MEDS: ATORVASTATIN 10 MG TABLET PO SCH (22:08)
[2020-01-06 01:19] VITALS: BP 135/65
[2020-01-06] MEDS ORDERED: CALCIUM CARBONATE 500 MG TAB.CHEW PO ONE (01:30)
[2020-01-06] MEDS ORDERED: CALCIUM CARBONATE 500 MG TAB.CHEW ONE (01:45)
[2020-01-06] MEDS: HEPARIN 5,000 UNITS/ML, 1ML SQ SCH ×2 (05:47→17:37)
[2020-01-06] MEDS: PANTOPRAZOLE 40MG TABLET PO SCH ×2 (05:49→16:32)
[2020-01-06] MEDS: CARVEDILOL 25 MG TABLET PO SCH ×2 (05:49→17:37)
[2020-01-06 06:11] LABS: ALANINE AMINOTRANSFERASE 14 U/L (12-78); ALBUMIN 2.8 g/dL (3.4-5.0); ANION GAP 7 mmol/L (5-15); CALCIUM 8.8 mg/dL (8.5-10.1); CHLORIDE 95 mmol/L (98-107); CREATININE 3.36 mg/dL (0.55-1.02)
[2020-01-06 06:13] LABS: ALKALINE PHOSPHATASE 82 U/L (45-117); BILIRUBIN,TOTAL 0.6 mg/dL (0.2-1.0); TOTAL PROTEIN 6.2 g/dL (6.4-8.2)
[2020-01-06 06:22] LABS: MEAN CORPUSCULAR HEMOGLOBIN 28.9 pg (27.0-34.8); MEAN CORPUSCULAR HGB CONC 32.4 g/dL (32.4-35.8); MEAN CORPUSCULAR VOLUME 89.2 fL (80-100); MEAN PLATELET VOLUME 7.1 fL (7.4-10.4); PLATELET COUNT 254 x10^3/uL (130-400); RED BLOOD COUNT 2.92 x10^6/uL (3.82-5.3); RED CELL DISTRIBUTION WIDTH 16.8 % (9.6-15.2)
[2020-01-06] MEDS: FUROSEMIDE 100 MG in SODIUM CHLORIDE 0.9% 90 ML IV PRN ×3 (06:23→21:50)
[2020-01-06 07:43] LABS: MD YES
[2020-01-06 07:46] LABS: <PLATELET ESTIMATE> ADEQUATE; <PLT MORPHOLOGY> NORMAL PLT MORPH; ANISOCYTOSIS 1+; EOS#(MANUAL) 0.14 x10^3/uL (0.0-0.4); EOS% (MANUAL) 4 % (1-7); HYPOCHROMIA 1+; LYMPH#(MANUAL) 0.65 x10^3/uL (1-3.4); LYMPHS% (MANUAL) 19 % (22-44); MONOS#(MANUAL) 0.34 x10^3/uL (0.3-2.7); MONOS% (MANUAL) 10 % (2-9); SEG#(MANUAL) 2.28 x10^3/uL (1.8-6.8); SEGS% (MANUAL) 67 % (42-75)
[2020-01-06 07:50] VITALS: BP 146/63
[2020-01-06] MEDS: DOXAZOSIN 2MG TABLET PO SCH ×2 (08:19→20:21)
[2020-01-06] MEDS: SERTRALINE 50MG TABLET PO SCH (08:21)
[2020-01-06] MEDS: AMLODIPINE 10 MG TAB PO SCH (08:25)
[2020-01-06] MEDS: ONDANSETRON ODT 4 MG PO SCH ×4 (08:31→20:21)
[2020-01-06] MEDS: ASPIRIN 81 MG TABLET EC PO SCH (08:31)
[2020-01-06] MEDS: ISOSORBIDE DINITRATE 10 MG TABLET PO SCH ×3 (08:32→20:22)
[2020-01-06] MEDS: METOLAZONE 5 MG TABLET PO SCH ×2 (08:32→20:21)
[2020-01-06] MEDS: FLUTICASONE NASAL SPRAY 16GM NAS SCH ×2 (08:33→20:22)
[2020-01-06] MEDS: ACETAMINOPHEN 325 MG TABLET PO PRN (10:46)
[2020-01-06 13:00] VITALS: BP 130/71
[2020-01-06] MEDS ORDERED: MAGNESIUM SULFATE PMX 2GM/50ML 50 ML IV ONE (13:30)
[2020-01-06] MEDS: ALLOPURINOL 100 MG TABLET PO SCH (14:49)
[2020-01-06 16:30] VITALS: BP 137/65
[2020-01-06 17:34] VITALS: BP 115/61
[2020-01-06 20:11] VITALS: BP 126/60
[2020-01-06] MEDS: DONEPEZIL 5 MG TABLET PO SCH (20:21)
[2020-01-06] MEDS: ATORVASTATIN 10 MG TABLET PO SCH (20:22)
[2020-01-07 01:57] VITALS: BP 133/56
[2020-01-07 05:15] LABS: ANION GAP 7 mmol/L (5-15); CALCIUM 8.5 mg/dL (8.5-10.1); CHLORIDE 93 mmol/L (98-107); CREATININE 3.55 mg/dL (0.55-1.02)
[2020-01-07] MEDS: FUROSEMIDE 100 MG in SODIUM CHLORIDE 0.9% 90 ML IV PRN ×3 (05:49→20:56)
[2020-01-07] MEDS: CARVEDILOL 25 MG TABLET PO SCH ×2 (05:54→17:10)
[2020-01-07] MEDS: PANTOPRAZOLE 40MG TABLET PO SCH ×2 (05:56→17:10)
[2020-01-07] MEDS: HEPARIN 5,000 UNITS/ML, 1ML SQ SCH ×2 (05:57→17:09)
[2020-01-07 07:08] VITALS: BP 118/63
[2020-01-07] MEDS: ONDANSETRON ODT 4 MG PO SCH ×5 (08:00→21:40)
[2020-01-07] MEDS: SERTRALINE 50MG TABLET PO SCH (10:11)
[2020-01-07] MEDS: ALLOPURINOL 100 MG TABLET PO SCH (10:12)
[2020-01-07] MEDS: DOXAZOSIN 2MG TABLET PO SCH ×2 (10:12→21:41)
[2020-01-07] MEDS: AMLODIPINE 10 MG TAB PO SCH (10:12)
[2020-01-07] MEDS: ISOSORBIDE DINITRATE 10 MG TABLET PO SCH ×3 (10:12→21:41)
[2020-01-07] MEDS: METOLAZONE 5 MG TABLET PO SCH ×2 (10:13→21:40)
[2020-01-07] MEDS: ASPIRIN 81 MG TABLET EC PO SCH (10:13)
[2020-01-07] MEDS: FLUTICASONE NASAL SPRAY 16GM NAS SCH ×2 (10:13→21:41)
[2020-01-07 12:27] VITALS: BP 120/62
[2020-01-07] MEDS: OXYcodone/APAP 5/325MG TABLET PO PRN (13:16)
[2020-01-07 21:28] VITALS: BP 126/52
[2020-01-07] MEDS: ATORVASTATIN 10 MG TABLET PO SCH (21:40)
[2020-01-07] MEDS: DONEPEZIL 5 MG TABLET PO SCH (21:40)
[2020-01-08 00:39] VITALS: BP 131/65
[2020-01-08] MEDS: ONDANSETRON 2MG/ML, 2ML IVPush PRN (02:23)
[2020-01-08] MEDS: FUROSEMIDE 100 MG in SODIUM CHLORIDE 0.9% 90 ML IV PRN ×4 (03:24→23:52)
[2020-01-08 05:44] LABS: ANION GAP 7 mmol/L (5-15); CALCIUM 8.9 mg/dL (8.5-10.1); CHLORIDE 93 mmol/L (98-107)
[2020-01-08 05:45] LABS: CREATININE 3.38 mg/dL (0.55-1.02)
[2020-01-08] MEDS: HEPARIN 5,000 UNITS/ML, 1ML SQ SCH ×2 (06:04→17:47)
[2020-01-08] MEDS: CARVEDILOL 25 MG TABLET PO SCH ×2 (06:04→17:25)
[2020-01-08] MEDS: OXYcodone/APAP 5/325MG TABLET PO PRN ×2 (06:04→23:25)
[2020-01-08] MEDS: PANTOPRAZOLE 40MG TABLET PO SCH ×2 (06:04→17:22)
[2020-01-08 07:21] VITALS: BP 129/64
[2020-01-08] MEDS: ASPIRIN 81 MG TABLET EC PO SCH (08:41)
[2020-01-08] MEDS: SERTRALINE 50MG TABLET PO SCH (08:41)
[2020-01-08] MEDS: ALLOPURINOL 100 MG TABLET PO SCH (08:41)
[2020-01-08] MEDS: METOLAZONE 5 MG TABLET PO SCH ×2 (08:41→21:29)
[2020-01-08] MEDS: ISOSORBIDE DINITRATE 10 MG TABLET PO SCH ×3 (08:41→21:28)
[2020-01-08] MEDS: AMLODIPINE 10 MG TAB PO SCH (08:41)
[2020-01-08] MEDS: ONDANSETRON ODT 4 MG PO SCH ×4 (08:41→21:30)
[2020-01-08] MEDS: DOXAZOSIN 2MG TABLET PO SCH ×2 (08:41→21:28)
[2020-01-08] MEDS: FLUTICASONE NASAL SPRAY 16GM NAS SCH ×2 (08:42→21:37)
[2020-01-08 13:04] VITALS: BP 145/70
[2020-01-08 16:41] VITALS: BP 135/64
[2020-01-08 19:56] VITALS: BP 136/66
[2020-01-08] MEDS: DONEPEZIL 5 MG TABLET PO SCH (21:28)
[2020-01-08] MEDS: ATORVASTATIN 10 MG TABLET PO SCH (21:29)
[2020-01-09 01:58] VITALS: BP 145/60
[2020-01-09 05:33] VITALS: BP 154/65
[2020-01-09] MEDS: CARVEDILOL 25 MG TABLET PO SCH ×2 (05:34→16:53)
[2020-01-09] MEDS: HEPARIN 5,000 UNITS/ML, 1ML SQ SCH ×2 (05:34→16:54)
[2020-01-09] MEDS: PANTOPRAZOLE 40MG TABLET PO SCH ×2 (05:34→16:53)
[2020-01-09] MEDS: ONDANSETRON ODT 4 MG PO SCH ×4 (05:38→21:05)
[2020-01-09 05:56] LABS: ANION GAP 6 mmol/L (5-15); CALCIUM 9.3 mg/dL (8.5-10.1); CHLORIDE 93 mmol/L (98-107); CREATININE 3.53 mg/dL (0.55-1.02)
[2020-01-09] MEDS: FUROSEMIDE 100 MG in SODIUM CHLORIDE 0.9% 90 ML IV PRN ×3 (06:32→23:06)
[2020-01-09 07:31] VITALS: BP 144/61
[2020-01-09] MEDS: METOLAZONE 5 MG TABLET PO SCH ×2 (08:43→21:04)
[2020-01-09] MEDS: DOXAZOSIN 2MG TABLET PO SCH ×2 (08:44→21:05)
[2020-01-09] MEDS: ISOSORBIDE DINITRATE 10 MG TABLET PO SCH ×3 (08:44→21:04)
[2020-01-09] MEDS: SERTRALINE 50MG TABLET PO SCH (08:44)
[2020-01-09] MEDS: ASPIRIN 81 MG TABLET EC PO SCH (08:44)
[2020-01-09] MEDS: AMLODIPINE 10 MG TAB PO SCH (08:44)
[2020-01-09 08:45] VITALS: BP 146/67
[2020-01-09] MEDS: ALLOPURINOL 100 MG TABLET PO SCH (08:45)
[2020-01-09] MEDS: FLUTICASONE NASAL SPRAY 16GM NAS SCH ×2 (08:56→21:03)
[2020-01-09] MEDS: OXYcodone/APAP 5/325MG TABLET PO PRN ×2 (11:09→23:05)
[2020-01-09 12:36] VITALS: BP 115/61
[2020-01-09] MEDS ORDERED: ZONI100C29 PO (15:10)
[2020-01-09 20:36] VITALS: BP 140/64
[2020-01-09] MEDS: ATORVASTATIN 10 MG TABLET PO SCH (21:04)
[2020-01-09] MEDS: DONEPEZIL 5 MG TABLET PO SCH (21:05)
[2020-01-10 00:33] VITALS: BP 129/70
[2020-01-10 05:26] VITALS: BP 137/66
[2020-01-10] MEDS: PANTOPRAZOLE 40MG TABLET PO SCH ×2 (05:27→15:49)
[2020-01-10] MEDS: CARVEDILOL 25 MG TABLET PO SCH ×2 (05:27→17:44)
[2020-01-10] MEDS: ONDANSETRON ODT 4 MG PO SCH ×4 (05:28→20:26)
[2020-01-10] MEDS: HEPARIN 5,000 UNITS/ML, 1ML SQ SCH ×2 (05:28→17:44)
[2020-01-10] MEDS: FUROSEMIDE 100 MG in SODIUM CHLORIDE 0.9% 90 ML IV PRN ×3 (05:36→23:30)
[2020-01-10 08:58] VITALS: BP 144/65
[2020-01-10] MEDS: FLUTICASONE NASAL SPRAY 16GM NAS SCH ×2 (09:08→20:27)
[2020-01-10] MEDS: DOXAZOSIN 2MG TABLET PO SCH ×2 (09:08→20:26)
[2020-01-10] MEDS: SERTRALINE 50MG TABLET PO SCH (09:09)
[2020-01-10] MEDS: METOLAZONE 5 MG TABLET PO SCH ×2 (09:09→20:26)
[2020-01-10] MEDS: ZONISAMIDE 50 MG CAPSULE PO SCH (09:09)
[2020-01-10] MEDS: AMLODIPINE 10 MG TAB PO SCH (09:09)
[2020-01-10] MEDS: ALLOPURINOL 100 MG TABLET PO SCH (09:09)
[2020-01-10] MEDS: ISOSORBIDE DINITRATE 10 MG TABLET PO SCH ×3 (09:10→20:26)
[2020-01-10] MEDS: ASPIRIN 81 MG TABLET EC PO SCH (09:10)
[2020-01-10 09:34] LABS: ANION GAP 7 mmol/L (5-15); CALCIUM 9.3 mg/dL (8.5-10.1); CHLORIDE 90 mmol/L (98-107)
[2020-01-10 12:53] VITALS: BP 136/67
[2020-01-10 20:21] VITALS: BP 128/68
[2020-01-10] MEDS: DONEPEZIL 5 MG TABLET PO SCH (20:26)
[2020-01-10] MEDS: ATORVASTATIN 10 MG TABLET PO SCH (20:26)
[2020-01-10] MEDS: OXYcodone/APAP 5/325MG TABLET PO PRN (20:44)
[2020-01-11 03:34] VITALS: BP 135/67
[2020-01-11] MEDS: CARVEDILOL 25 MG TABLET PO SCH ×2 (06:18→18:33)
[2020-01-11] MEDS: PANTOPRAZOLE 40MG TABLET PO SCH ×2 (06:18→15:25)
[2020-01-11] MEDS: OXYcodone/APAP 5/325MG TABLET PO PRN ×3 (06:19→23:05)
[2020-01-11] MEDS: HEPARIN 5,000 UNITS/ML, 1ML SQ SCH ×2 (06:19→18:33)
[2020-01-11] MEDS: FUROSEMIDE 100 MG in SODIUM CHLORIDE 0.9% 90 ML IV PRN ×3 (06:39→23:06)
[2020-01-11 06:55] VITALS: BP 146/65
[2020-01-11 07:02] LABS: MEAN CORPUSCULAR HEMOGLOBIN 29.3 pg (27.0-34.8); MEAN CORPUSCULAR HGB CONC 32.8 g/dL (32.4-35.8); MEAN CORPUSCULAR VOLUME 89.2 fL (80-100); MEAN PLATELET VOLUME 7.1 fL (7.4-10.4); PLATELET COUNT 333 x10^3/uL (130-400); RED BLOOD COUNT 2.91 x10^6/uL (3.82-5.3); RED CELL DISTRIBUTION WIDTH 16.9 % (9.6-15.2)
[2020-01-11 07:03] LABS: ALBUMIN 2.9 g/dL (3.4-5.0); ANION GAP 5 mmol/L (5-15); CALCIUM 9.1 mg/dL (8.5-10.1); CHLORIDE 92 mmol/L (98-107)
[2020-01-11 07:06] LABS: ALANINE AMINOTRANSFERASE 22 U/L (12-78); ALKALINE PHOSPHATASE 90 U/L (45-117); BILIRUBIN,TOTAL 0.6 mg/dL (0.2-1.0); CREATININE 3.66 mg/dL (0.55-1.02); TOTAL PROTEIN 6.6 g/dL (6.4-8.2)
[2020-01-11 07:58] LABS: MD YES
[2020-01-11 08:00] LABS: <PLATELET ESTIMATE> ADEQUATE; <PLT MORPHOLOGY> NORMAL PLT MORPH; ANISOCYTOSIS 1+; EOS#(MANUAL) 0.12 x10^3/uL (0.0-0.4); EOS% (MANUAL) 3 % (1-7); HYPOCHROMIA 1+; LYMPH#(MANUAL) 0.82 x10^3/uL (1-3.4); LYMPHS% (MANUAL) 21 % (22-44); MONOS#(MANUAL) 0.55 x10^3/uL (0.3-2.7); MONOS% (MANUAL) 14 % (2-9); SEG#(MANUAL) 2.42 x10^3/uL (1.8-6.8); SEGS% (MANUAL) 62 % (42-75); TARGET CELLS 1+
[2020-01-11] MEDS ORDERED: AcetaZOLAMIDE INJ 500 MG IVPush ONE (10:00)
[2020-01-11] MEDS: ASPIRIN 81 MG TABLET EC PO SCH (10:02)
[2020-01-11] MEDS: ZONISAMIDE 50 MG CAPSULE PO SCH (10:03)
[2020-01-11] MEDS: SERTRALINE 50MG TABLET PO SCH (10:03)
[2020-01-11] MEDS: METOLAZONE 5 MG TABLET PO SCH (10:03)
[2020-01-11] MEDS: AMLODIPINE 10 MG TAB PO SCH (10:03)
[2020-01-11] MEDS: ALLOPURINOL 100 MG TABLET PO SCH (10:03)
[2020-01-11] MEDS: DOXAZOSIN 2MG TABLET PO SCH ×2 (10:04→20:58)
[2020-01-11] MEDS: ISOSORBIDE DINITRATE 10 MG TABLET PO SCH ×3 (10:04→21:00)
[2020-01-11] MEDS: FLUTICASONE NASAL SPRAY 16GM NAS SCH ×2 (10:06→21:03)
[2020-01-11 14:08] VITALS: BP 132/49
[2020-01-11 18:35] VITALS: BP 122/59
[2020-01-11] MEDS: ATORVASTATIN 10 MG TABLET PO SCH (21:00)
[2020-01-11] MEDS: DONEPEZIL 5 MG TABLET PO SCH (21:00)
[2020-01-12 01:45] VITALS: BP 149/73
[2020-01-12 06:02] LABS: ANION GAP 7 mmol/L (5-15); CALCIUM 9.2 mg/dL (8.5-10.1); CHLORIDE 91 mmol/L (98-107); MEAN CORPUSCULAR HEMOGLOBIN 29.2 pg (27.0-34.8); MEAN CORPUSCULAR HGB CONC 32.8 g/dL (32.4-35.8); MEAN CORPUSCULAR VOLUME 88.9 fL (80-100); MEAN PLATELET VOLUME 7.6 fL (7.4-10.4); PLATELET COUNT 346 x10^3/uL (130-400); RED BLOOD COUNT 2.85 x10^6/uL (3.82-5.3); RED CELL DISTRIBUTION WIDTH 16.8 % (9.6-15.2)
[2020-01-12 06:05] LABS: ALANINE AMINOTRANSFERASE 19 U/L (12-78); ALKALINE PHOSPHATASE 87 U/L (45-117); BILIRUBIN,TOTAL 0.8 mg/dL (0.2-1.0); CREATININE 3.54 mg/dL (0.55-1.02); TOTAL PROTEIN 6.7 g/dL (6.4-8.2)
[2020-01-12] MEDS: PANTOPRAZOLE 40MG TABLET PO SCH ×2 (06:16→17:54)
[2020-01-12] MEDS: HEPARIN 5,000 UNITS/ML, 1ML SQ SCH ×2 (06:16→17:52)
[2020-01-12] MEDS: CARVEDILOL 25 MG TABLET PO SCH ×2 (06:17→17:52)
[2020-01-12 06:38] LABS: MD YES
[2020-01-12 06:40] LABS: ANISOCYTOSIS 1+; EOS#(MANUAL) 0.08 x10^3/uL (0.0-0.4); EOS% (MANUAL) 2 % (1-7); HYPOCHROMIA 1+; LYMPH#(MANUAL) 0.56 x10^3/uL (1-3.4); LYMPHS% (MANUAL) 14 % (22-44); MONOS#(MANUAL) 0.36 x10^3/uL (0.3-2.7); MONOS% (MANUAL) 9 % (2-9); SEGS% (MANUAL) 75 % (42-75)
[2020-01-12 06:41] LABS: <PLATELET ESTIMATE> ADEQUATE; <PLT MORPHOLOGY> NORMAL PLT MORPH; TARGET CELLS 1+
[2020-01-12 09:55] VITALS: BP 142/60
[2020-01-12] MEDS: SERTRALINE 50MG TABLET PO SCH (10:06)
[2020-01-12] MEDS: ALLOPURINOL 100 MG TABLET PO SCH (10:06)
[2020-01-12] MEDS: ASPIRIN 81 MG TABLET EC PO SCH (10:07)
[2020-01-12] MEDS: METOLAZONE 5 MG TABLET PO SCH (10:07)
[2020-01-12] MEDS: FLUTICASONE NASAL SPRAY 16GM NAS SCH ×2 (10:07→20:38)
[2020-01-12] MEDS: AMLODIPINE 10 MG TAB PO SCH (10:07)
[2020-01-12] MEDS: DOXAZOSIN 2MG TABLET PO SCH ×2 (10:08→20:37)
[2020-01-12] MEDS: ISOSORBIDE DINITRATE 10 MG TABLET PO SCH ×3 (10:09→20:37)
[2020-01-12] MEDS: FUROSEMIDE 100 MG in SODIUM CHLORIDE 0.9% 90 ML IV PRN (10:11)
[2020-01-12] MEDS: ZONISAMIDE 50 MG CAPSULE PO SCH (10:11)
[2020-01-12] MEDS ORDERED: AcetaZOLAMIDE INJ 500 MG IVPush ONE (11:00)
[2020-01-12] MEDS ORDERED: FUROSEMIDE 100 MG in SODIUM CHLORIDE 0.9% 90 ML IV PRN (12:00)
[2020-01-12] MEDS: OXYcodone/APAP 5/325MG TABLET PO PRN (12:18)
[2020-01-12] MEDS ORDERED: LORazepam 2 MG/ML, 1ML IVPush ONE (14:30)
[2020-01-12 16:38] VITALS: BP 137/55
[2020-01-12 17:51] VITALS: BP 134/66
[2020-01-12 20:31] VITALS: BP 136/64
[2020-01-12] MEDS: DONEPEZIL 5 MG TABLET PO SCH (20:36)
[2020-01-12] MEDS: ATORVASTATIN 10 MG TABLET PO SCH (20:37)
[2020-01-13 01:18] VITALS: BP 129/62
[2020-01-13] MEDS: OXYcodone/APAP 5/325MG TABLET PO PRN (01:18)
[2020-01-13 05:49] LABS: ANION GAP 7 mmol/L (5-15); CALCIUM 8.8 mg/dL (8.5-10.1); CHLORIDE 91 mmol/L (98-107); CREATININE 3.54 mg/dL (0.55-1.02)
[2020-01-13 05:53] LABS: MEAN CORPUSCULAR HEMOGLOBIN 29.5 pg (27.0-34.8); MEAN CORPUSCULAR HGB CONC 32.9 g/dL (32.4-35.8); MEAN CORPUSCULAR VOLUME 89.5 fL (80-100); MEAN PLATELET VOLUME 7.2 fL (7.4-10.4); PLATELET COUNT 358 x10^3/uL (130-400); RED BLOOD COUNT 2.97 x10^6/uL (3.82-5.3); RED CELL DISTRIBUTION WIDTH 16.9 % (9.6-15.2)
[2020-01-13] MEDS: PANTOPRAZOLE 40MG TABLET PO SCH ×2 (05:59→16:58)
[2020-01-13] MEDS: HEPARIN 5,000 UNITS/ML, 1ML SQ SCH ×2 (05:59→17:56)
[2020-01-13] MEDS: CARVEDILOL 25 MG TABLET PO SCH ×2 (05:59→17:56)
[2020-01-13 06:13] LABS: BASOPHILS # (AUTO) 0.03 x10^3/uL (0-0.1); BASOPHILS % (AUTO) 1 % (0-1); EOSINOPHILS # (AUTO) 0.09 x10^3/uL (0-0.4); EOSINOPHILS % (AUTO) 2 % (1-7); LYMPHOCYTES # (AUTO) 0.63 x10^3/uL (1-3.4); LYMPHOCYTES % (AUTO) 15 % (22-44); MD SCAN; MONOCYTES # (AUTO) 0.56 x10^3/uL (0.2-0.8); MONOCYTES % (AUTO) 14 % (2-9); NEUTROPHILS # (AUTO) 2.81 x10^3/uL (1.8-6.8); NEUTROPHILS % (AUTO) 68 % (42-75)
[2020-01-13 08:45] VITALS: BP 132/63
[2020-01-13] MEDS: METOLAZONE 5 MG TABLET PO SCH (08:49)
[2020-01-13] MEDS: FLUTICASONE NASAL SPRAY 16GM NAS SCH ×2 (09:00→21:47)
[2020-01-13] MEDS ORDERED: MAGNESIUM SULFATE PMX 4GM/100M 100 ML IV ONE (11:00)
[2020-01-13] MEDS ORDERED: POTASSIUM CHLORIDE 20 MEQ TAB.ER.PRT PO ONE (11:00)
[2020-01-13] MEDS: DOXAZOSIN 2MG TABLET PO SCH ×2 (11:35→21:37)
[2020-01-13] MEDS: ASPIRIN 81 MG TABLET EC PO SCH (11:35)
[2020-01-13] MEDS: FUROSEMIDE 40 MG/4 ML IV SCH ×2 (11:35→21:38)
[2020-01-13] MEDS: SERTRALINE 50MG TABLET PO SCH (11:38)
[2020-01-13] MEDS: ISOSORBIDE DINITRATE 10 MG TABLET PO SCH ×3 (11:38→21:37)
[2020-01-13] MEDS: AMLODIPINE 10 MG TAB PO SCH (11:38)
[2020-01-13] MEDS: ALLOPURINOL 100 MG TABLET PO SCH (11:39)
[2020-01-13] MEDS: ACETAMINOPHEN 325 MG TABLET PO PRN (11:39)
[2020-01-13] MEDS: ZONISAMIDE 50 MG CAPSULE PO SCH (11:39)
[2020-01-13 17:04] VITALS: BP 114/53
[2020-01-13 21:07] VITALS: BP 114/47
[2020-01-13 21:42] VITALS: BP 105/51
[2020-01-13] MEDS: ATORVASTATIN 10 MG TABLET PO SCH (21:45)
[2020-01-13] MEDS: DONEPEZIL 5 MG TABLET PO SCH (21:46)
[2020-01-13] MEDS: MAGNESIUM CHLORIDE 64 MG TABLET.DR PO SCH (21:46)
[2020-01-13] MEDS ORDERED: FUROSEMIDE 40 MG/4 ML IV ONE (22:00)
[2020-01-14] VITALS (7 sets, daily range): BP systolic 108–136; BP diastolic 50–63
[2020-01-14 05:49] LABS: ANION GAP 7 mmol/L (5-15); CALCIUM 9.3 mg/dL (8.5-10.1); CHLORIDE 91 mmol/L (98-107); CREATININE 3.44 mg/dL (0.55-1.02)
[2020-01-14] MEDS: CARVEDILOL 25 MG TABLET PO SCH ×2 (06:26→17:16)
[2020-01-14] MEDS: HEPARIN 5,000 UNITS/ML, 1ML SQ SCH ×2 (06:26→17:15)
[2020-01-14] MEDS: PANTOPRAZOLE 40MG TABLET PO SCH ×2 (06:26→17:15)
[2020-01-14] MEDS: METOLAZONE 5 MG TABLET PO SCH (08:47)
[2020-01-14] MEDS: ALLOPURINOL 100 MG TABLET PO SCH (08:47)
[2020-01-14] MEDS: ASPIRIN 81 MG TABLET EC PO SCH (08:47)
[2020-01-14] MEDS: ZONISAMIDE 50 MG CAPSULE PO SCH (08:47)
[2020-01-14] MEDS: ISOSORBIDE DINITRATE 10 MG TABLET PO SCH ×4 (08:47→20:57)
[2020-01-14] MEDS: MAGNESIUM CHLORIDE 64 MG TABLET.DR PO SCH ×2 (08:47→20:56)
[2020-01-14] MEDS: AMLODIPINE 10 MG TAB PO SCH ×2 (08:47→09:00)
[2020-01-14] MEDS: FUROSEMIDE 40 MG/4 ML IV SCH ×2 (08:48→20:56)
[2020-01-14] MEDS: SERTRALINE 50MG TABLET PO SCH (08:48)
[2020-01-14] MEDS: DOXAZOSIN 2MG TABLET PO SCH ×2 (08:48→20:56)
[2020-01-14] MEDS: FLUTICASONE NASAL SPRAY 16GM NAS SCH ×2 (08:49→20:56)
[2020-01-14] MEDS ORDERED: FUROSEMIDE 40 MG/4 ML IV SCH (09:00)
[2020-01-14] MEDS: SENNA/DOCUSATE TABLET PO SCH (10:31)
[2020-01-14] MEDS: POLYETHYLENE GLYCOL 17 GM PACKET PO PRN (14:51)
[2020-01-14] MEDS: ACETAMINOPHEN 325 MG TABLET PO PRN (14:52)
[2020-01-14] MEDS: ATORVASTATIN 10 MG TABLET PO SCH (20:56)
[2020-01-14] MEDS: DONEPEZIL 5 MG TABLET PO SCH (20:56)
[2020-01-15 02:25] VITALS: BP 138/57
[2020-01-15] MEDS: CARVEDILOL 25 MG TABLET PO SCH ×2 (05:19→16:57)
[2020-01-15] MEDS: HEPARIN 5,000 UNITS/ML, 1ML SQ SCH ×2 (05:19→16:58)
[2020-01-15] MEDS: PANTOPRAZOLE 40MG TABLET PO SCH ×2 (05:19→21:47)
[2020-01-15 05:20] VITALS: BP 132/60
[2020-01-15 06:01] LABS: ANION GAP 7 mmol/L (5-15); CALCIUM 9.2 mg/dL (8.5-10.1); CHLORIDE 91 mmol/L (98-107)
[2020-01-15 06:02] LABS: CREATININE 3.36 mg/dL (0.55-1.02)
[2020-01-15 07:54] VITALS: BP 128/50
[2020-01-15] MEDS: ZONISAMIDE 50 MG CAPSULE PO SCH (08:59)
[2020-01-15] MEDS: SENNA/DOCUSATE TABLET PO SCH (09:00)
[2020-01-15] MEDS: AMLODIPINE 10 MG TAB PO SCH (09:00)
[2020-01-15] MEDS: ISOSORBIDE DINITRATE 10 MG TABLET PO SCH ×3 (09:00→21:47)
[2020-01-15] MEDS: FLUTICASONE NASAL SPRAY 16GM NAS SCH ×2 (09:00→19:41)
[2020-01-15] MEDS: MAGNESIUM CHLORIDE 64 MG TABLET.DR PO SCH ×2 (09:01→19:41)
[2020-01-15] MEDS: METOLAZONE 5 MG TABLET PO SCH (09:01)
[2020-01-15] MEDS: ASPIRIN 81 MG TABLET EC PO SCH (09:02)
[2020-01-15] MEDS: DOXAZOSIN 2MG TABLET PO SCH ×2 (09:02→19:41)
[2020-01-15] MEDS: ALLOPURINOL 100 MG TABLET PO SCH (09:02)
[2020-01-15] MEDS: SERTRALINE 50MG TABLET PO SCH (09:02)
[2020-01-15] MEDS: FUROSEMIDE 40 MG/4 ML IV SCH ×2 (09:20→19:42)
[2020-01-15] MEDS: GABAPENTIN 100 MG CAPSULE PO SCH ×3 (11:00→19:41)
[2020-01-15 12:25] VITALS: BP 117/60
[2020-01-15 19:22] VITALS: BP 130/64
[2020-01-15] MEDS: DONEPEZIL 5 MG TABLET PO SCH (19:41)
[2020-01-15] MEDS: ATORVASTATIN 10 MG TABLET PO SCH (19:41)
[2020-01-16 02:25] VITALS: BP 144/68
[2020-01-16 05:52] LABS: ALBUMIN 3.2 g/dL (3.4-5.0); ANION GAP 7 mmol/L (5-15); CALCIUM 8.8 mg/dL (8.5-10.1); CHLORIDE 93 mmol/L (98-107)
[2020-01-16 06:06] VITALS: BP 136/72
[2020-01-16] MEDS: PANTOPRAZOLE 40MG TABLET PO SCH ×2 (06:07→18:05)
[2020-01-16] MEDS: GABAPENTIN 100 MG CAPSULE PO SCH ×5 (06:07→20:49)
[2020-01-16] MEDS: POLYETHYLENE GLYCOL 17 GM PACKET PO PRN (06:07)
[2020-01-16] MEDS: CARVEDILOL 25 MG TABLET PO SCH ×2 (06:07→18:02)
[2020-01-16] MEDS: HEPARIN 5,000 UNITS/ML, 1ML SQ SCH ×2 (06:07→18:02)
[2020-01-16 09:30] VITALS: BP 149/64
[2020-01-16] MEDS: FUROSEMIDE 40 MG/4 ML IV SCH ×2 (10:27→20:27)
[2020-01-16] MEDS: SERTRALINE 50MG TABLET PO SCH (10:28)
[2020-01-16] MEDS: ZONISAMIDE 50 MG CAPSULE PO SCH (10:28)
[2020-01-16] MEDS: ASPIRIN 81 MG TABLET EC PO SCH (10:28)
[2020-01-16] MEDS: SENNA/DOCUSATE TABLET PO SCH (10:28)
[2020-01-16] MEDS: AMLODIPINE 10 MG TAB PO SCH (10:29)
[2020-01-16] MEDS: ISOSORBIDE DINITRATE 10 MG TABLET PO SCH ×5 (10:29→22:30)
[2020-01-16] MEDS: FLUTICASONE NASAL SPRAY 16GM NAS SCH ×2 (10:29→20:27)
[2020-01-16] MEDS: DOXAZOSIN 2MG TABLET PO SCH ×2 (10:29→20:28)
[2020-01-16] MEDS: ALLOPURINOL 100 MG TABLET PO SCH (10:29)
[2020-01-16] MEDS: MAGNESIUM CHLORIDE 64 MG TABLET.DR PO SCH ×2 (10:31→20:28)
[2020-01-16] MEDS: METOLAZONE 5 MG TABLET PO SCH (10:31)
[2020-01-16 14:20] VITALS: BP 122/52
[2020-01-16 19:54] VITALS: BP 117/52
[2020-01-16 20:26] VITALS: BP 128/62
[2020-01-16] MEDS: DONEPEZIL 5 MG TABLET PO SCH (20:28)
[2020-01-16] MEDS: ATORVASTATIN 10 MG TABLET PO SCH (20:28)
[2020-01-17 02:16] VITALS: BP 128/49
[2020-01-17] MEDS: GABAPENTIN 100 MG CAPSULE PO SCH ×3 (06:14→21:45)
[2020-01-17] MEDS: HEPARIN 5,000 UNITS/ML, 1ML SQ SCH ×2 (06:35→17:00)
[2020-01-17 06:40] LABS: BASOPHILS % (AUTO) 0 % (0-1); EOSINOPHILS # (AUTO) 0.09 x10^3/uL (0-0.4); EOSINOPHILS % (AUTO) 2 % (1-7); LYMPHOCYTES # (AUTO) 0.65 x10^3/uL (1-3.4); LYMPHOCYTES % (AUTO) 13 % (22-44); MD NO; MEAN CORPUSCULAR HEMOGLOBIN 28.7 pg (27.0-34.8); MEAN CORPUSCULAR VOLUME 89.6 fL (80-100); MEAN PLATELET VOLUME 6.7 fL (7.4-10.4); MONOCYTES # (AUTO) 0.74 x10^3/uL (0.2-0.8); MONOCYTES % (AUTO) 15 % (2-9); NEUTROPHILS # (AUTO) 3.36 x10^3/uL (1.8-6.8); NEUTROPHILS % (AUTO) 70 % (42-75); PLATELET COUNT 439 x10^3/uL (130-400); RED BLOOD COUNT 3.14 x10^6/uL (3.82-5.3); RED CELL DISTRIBUTION WIDTH 16.7 % (9.6-15.2)
[2020-01-17 06:49] LABS: ANION GAP 8 mmol/L (5-15); CALCIUM 9.1 mg/dL (8.5-10.1); CHLORIDE 94 mmol/L (98-107); CREATININE 3.55 mg/dL (0.55-1.02)
[2020-01-17 07:18] VITALS: BP 132/61
[2020-01-17] MEDS: ISOSORBIDE DINITRATE 10 MG TABLET PO SCH ×3 (07:56→21:46)
[2020-01-17] MEDS: CARVEDILOL 25 MG TABLET PO SCH ×2 (07:56→17:00)
[2020-01-17] MEDS: PANTOPRAZOLE 40MG TABLET PO SCH ×2 (07:56→17:00)
[2020-01-17] MEDS: ASPIRIN 81 MG TABLET EC PO SCH (07:56)
[2020-01-17] MEDS: METOLAZONE 5 MG TABLET PO SCH (09:52)
[2020-01-17] MEDS: DOXAZOSIN 2MG TABLET PO SCH ×2 (09:52→21:45)
[2020-01-17] MEDS: ZONISAMIDE 50 MG CAPSULE PO SCH (09:52)
[2020-01-17] MEDS: TORSEMIDE 20 MG TABLET PO SCH (09:52)
[2020-01-17] MEDS: ALLOPURINOL 100 MG TABLET PO SCH (09:53)
[2020-01-17] MEDS: SERTRALINE 50MG TABLET PO SCH (09:53)
[2020-01-17] MEDS: MAGNESIUM CHLORIDE 64 MG TABLET.DR PO SCH ×2 (09:53→21:45)
[2020-01-17] MEDS: AMLODIPINE 10 MG TAB PO SCH (09:53)
[2020-01-17] MEDS: SENNA/DOCUSATE TABLET PO SCH (09:54)
[2020-01-17] MEDS: FLUTICASONE NASAL SPRAY 16GM NAS SCH ×3 (09:55→21:44)
[2020-01-17 13:06] VITALS: BP 113/49
[2020-01-17 17:01] VITALS: BP 127/64
[2020-01-17 19:09] VITALS: BP 122/54
[2020-01-17] MEDS: DONEPEZIL 5 MG TABLET PO SCH (21:44)
[2020-01-17] MEDS: ATORVASTATIN 10 MG TABLET PO SCH (21:44)
[2020-01-18 00:01] VITALS: BP 116/62
[2020-01-18] MEDS: PANTOPRAZOLE 40MG TABLET PO SCH ×2 (05:14→17:08)
[2020-01-18] MEDS: HEPARIN 5,000 UNITS/ML, 1ML SQ SCH ×2 (05:14→17:07)
[2020-01-18] MEDS: CARVEDILOL 25 MG TABLET PO SCH ×2 (05:15→17:08)
[2020-01-18 07:05] VITALS: BP 132/66
[2020-01-18 07:38] LABS: ALBUMIN 3.3 g/dL (3.4-5.0); ANION GAP 7 mmol/L (5-15); CALCIUM 8.8 mg/dL (8.5-10.1); CHLORIDE 94 mmol/L (98-107)
[2020-01-18 07:39] LABS: CREATININE 3.98 mg/dL (0.55-1.02)
[2020-01-18] MEDS: FLUTICASONE NASAL SPRAY 16GM NAS SCH ×2 (08:36→21:24)
[2020-01-18] MEDS: METOLAZONE 5 MG TABLET PO SCH (08:37)
[2020-01-18] MEDS: ASPIRIN 81 MG TABLET EC PO SCH (08:37)
[2020-01-18] MEDS: ZONISAMIDE 50 MG CAPSULE PO SCH (08:37)
[2020-01-18] MEDS: ISOSORBIDE DINITRATE 10 MG TABLET PO SCH ×3 (08:38→21:24)
[2020-01-18] MEDS: SENNA/DOCUSATE TABLET PO SCH (08:38)
[2020-01-18] MEDS: DOXAZOSIN 2MG TABLET PO SCH ×2 (08:38→21:24)
[2020-01-18] MEDS: GABAPENTIN 100 MG CAPSULE PO SCH ×3 (08:38→21:23)
[2020-01-18] MEDS: SERTRALINE 50MG TABLET PO SCH (08:39)
[2020-01-18] MEDS: AMLODIPINE 10 MG TAB PO SCH (08:39)
[2020-01-18] MEDS: ALLOPURINOL 100 MG TABLET PO SCH (08:39)
[2020-01-18] MEDS: TORSEMIDE 20 MG TABLET PO SCH (08:39)
[2020-01-18] MEDS: MAGNESIUM CHLORIDE 64 MG TABLET.DR PO SCH ×2 (08:39→21:24)
[2020-01-18] MEDS ORDERED: FUROSEMIDE 40 MG/4 ML IV ONE (11:30)
[2020-01-18 14:20] VITALS: BP 122/54
[2020-01-18 17:10] VITALS: BP 110/54
[2020-01-18 21:22] VITALS: BP 124/46
[2020-01-18] MEDS: DONEPEZIL 5 MG TABLET PO SCH (21:23)
[2020-01-18] MEDS: ATORVASTATIN 10 MG TABLET PO SCH (21:23)
[2020-01-18] MEDS: CYCLOBENZAPRINE 10 MG TABLET PO PRN (21:39)
[2020-01-19 03:02] VITALS: BP 115/51
[2020-01-19 05:50] VITALS: BP 147/74
[2020-01-19] MEDS: PANTOPRAZOLE 40MG TABLET PO SCH ×2 (05:51→17:26)
[2020-01-19] MEDS: CARVEDILOL 25 MG TABLET PO SCH ×2 (05:51→17:21)
[2020-01-19] MEDS: HEPARIN 5,000 UNITS/ML, 1ML SQ SCH ×2 (05:52→17:20)
[2020-01-19 07:07] LABS: CALCIUM 9.2 mg/dL (8.5-10.1); CHLORIDE 93 mmol/L (98-107)
[2020-01-19 07:12] VITALS: BP 134/55
[2020-01-19 07:16] LABS: ALBUMIN 3.6 g/dL (3.4-5.0); ANION GAP 8 mmol/L (5-15); CREATININE 3.95 mg/dL (0.55-1.02)
[2020-01-19] MEDS: DOXAZOSIN 2MG TABLET PO SCH ×2 (08:54→21:00)
[2020-01-19] MEDS: METOLAZONE 5 MG TABLET PO SCH (08:54)
[2020-01-19] MEDS: AMLODIPINE 10 MG TAB PO SCH (08:54)
[2020-01-19] MEDS: SENNA/DOCUSATE TABLET PO SCH (08:56)
[2020-01-19] MEDS: ZONISAMIDE 50 MG CAPSULE PO SCH (08:56)
[2020-01-19] MEDS: ASPIRIN 81 MG TABLET EC PO SCH (08:56)
[2020-01-19] MEDS: MAGNESIUM CHLORIDE 64 MG TABLET.DR PO SCH ×2 (08:57→21:00)
[2020-01-19] MEDS: ALLOPURINOL 100 MG TABLET PO SCH (08:57)
[2020-01-19] MEDS: SERTRALINE 50MG TABLET PO SCH (08:58)
[2020-01-19] MEDS: GABAPENTIN 100 MG CAPSULE PO SCH ×3 (09:00→21:00)
[2020-01-19] MEDS: ISOSORBIDE DINITRATE 10 MG TABLET PO SCH ×3 (09:00→21:00)
[2020-01-19] MEDS ORDERED: TORSEMIDE 20 MG TABLET PO SCH (09:00)
[2020-01-19] MEDS: CYCLOBENZAPRINE 10 MG TABLET PO PRN (09:00)
[2020-01-19] MEDS: FLUTICASONE NASAL SPRAY 16GM NAS SCH ×2 (09:00→21:00)
[2020-01-19 13:47] VITALS: BP 139/74
[2020-01-19 14:33] LABS: % IRON SATURATION 18 % (20-55); IRON LEVEL 51 mcg/dL (50-170); TOTAL IRON BINDING CAPACITY 289 mcg/dL (250-450)
[2020-01-19] MEDS: FUROSEMIDE 40 MG/4 ML IV SCH (17:20)
[2020-01-19 17:32] VITALS: BP 149/67
[2020-01-19 20:16] VITALS: BP 134/63
[2020-01-19] MEDS: DONEPEZIL 5 MG TABLET PO SCH (21:00)
[2020-01-19] MEDS: ATORVASTATIN 10 MG TABLET PO SCH (21:00)
[2020-01-20] VITALS (7 sets, daily range): BP systolic 119–154; BP diastolic 53–67
[2020-01-20 04:54] LABS: MEAN CORPUSCULAR HEMOGLOBIN 29.3 pg (27.0-34.8); MEAN CORPUSCULAR HGB CONC 32.4 g/dL (32.4-35.8); MEAN CORPUSCULAR VOLUME 90.7 fL (80-100); MEAN PLATELET VOLUME 6.9 fL (7.4-10.4); PLATELET COUNT 392 x10^3/uL (130-400); RED BLOOD COUNT 2.98 x10^6/uL (3.82-5.3); RED CELL DISTRIBUTION WIDTH 17.1 % (9.6-15.2)
[2020-01-20 05:05] LABS: ALANINE AMINOTRANSFERASE 31 U/L (12-78); ALBUMIN 3.5 g/dL (3.4-5.0); ANION GAP 7 mmol/L (5-15); CHLORIDE 95 mmol/L (98-107); CREATININE 4.11 mg/dL (0.55-1.02)
[2020-01-20 05:09] LABS: ALKALINE PHOSPHATASE 97 U/L (45-117); BILIRUBIN,TOTAL 0.5 mg/dL (0.2-1.0); TOTAL PROTEIN 7.5 g/dL (6.4-8.2)
[2020-01-20] MEDS: CARVEDILOL 25 MG TABLET PO SCH ×2 (05:53→17:18)
[2020-01-20] MEDS: PANTOPRAZOLE 40MG TABLET PO SCH ×2 (05:53→15:59)
[2020-01-20] MEDS: HEPARIN 5,000 UNITS/ML, 1ML SQ SCH ×2 (05:53→17:19)
[2020-01-20 05:55] LABS: MD YES
[2020-01-20 05:58] LABS: <PLATELET ESTIMATE> ADEQUATE; <PLT MORPHOLOGY> NORMAL PLT MORPH; ANISOCYTOSIS 1+; EOS#(MANUAL) 0.28 x10^3/uL (0.0-0.4); EOS% (MANUAL) 5 % (1-7); HYPOCHROMIA 1+; LYMPH#(MANUAL) 0.77 x10^3/uL (1-3.4); LYMPHS% (MANUAL) 14 % (22-44); MONOS% (MANUAL) 9 % (2-9); SEG#(MANUAL) 3.96 x10^3/uL (1.8-6.8); SEGS% (MANUAL) 72 % (42-75); TARGET CELLS 1+
[2020-01-20] MEDS: FUROSEMIDE 40 MG/4 ML IV SCH ×2 (07:50→17:19)
[2020-01-20] MEDS: ISOSORBIDE DINITRATE 10 MG TABLET PO SCH ×3 (09:27→21:10)
[2020-01-20] MEDS: ALLOPURINOL 100 MG TABLET PO SCH (09:27)
[2020-01-20] MEDS: FLUTICASONE NASAL SPRAY 16GM NAS SCH ×2 (09:27→21:14)
[2020-01-20] MEDS: MAGNESIUM CHLORIDE 64 MG TABLET.DR PO SCH ×2 (09:27→21:11)
[2020-01-20] MEDS: ZONISAMIDE 50 MG CAPSULE PO SCH (09:27)
[2020-01-20] MEDS: METOLAZONE 5 MG TABLET PO SCH (09:28)
[2020-01-20] MEDS: SENNA/DOCUSATE TABLET PO SCH (09:28)
[2020-01-20] MEDS: AMLODIPINE 10 MG TAB PO SCH (09:29)
[2020-01-20] MEDS: GABAPENTIN 100 MG CAPSULE PO SCH ×3 (09:29→21:10)
[2020-01-20] MEDS: ASPIRIN 81 MG TABLET EC PO SCH (09:29)
[2020-01-20] MEDS: DOXAZOSIN 2MG TABLET PO SCH ×2 (09:29→21:11)
[2020-01-20] MEDS: SERTRALINE 50MG TABLET PO SCH (09:29)
[2020-01-20 11:35] LABS: CULTURE INDICATED? YES; MICROSCOPIC INDICATED
[2020-01-20] MEDS ORDERED: FUROSEMIDE 40 MG/4 ML IV ONE (12:00)
[2020-01-20] MEDS ORDERED: METOLAZONE 5 MG TABLET PO SCH (21:00)
[2020-01-20] MEDS: DONEPEZIL 5 MG TABLET PO SCH (21:10)
[2020-01-20] MEDS: ATORVASTATIN 10 MG TABLET PO SCH (21:11)
[2020-01-21 00:38] VITALS: BP 166/68
[2020-01-21] MEDS: CARVEDILOL 25 MG TABLET PO SCH ×2 (04:45→18:38)
[2020-01-21] MEDS: HEPARIN 5,000 UNITS/ML, 1ML SQ SCH ×2 (04:46→18:39)
[2020-01-21] MEDS: PANTOPRAZOLE 40MG TABLET PO SCH ×2 (04:46→17:07)
[2020-01-21 06:34] VITALS: BP 142/68
[2020-01-21 07:33] LABS: ALBUMIN 3.8 g/dL (3.4-5.0); ANION GAP 8 mmol/L (5-15); CALCIUM 9.6 mg/dL (8.5-10.1); CHLORIDE 91 mmol/L (98-107)
[2020-01-21 07:34] LABS: CREATININE 3.99 mg/dL (0.55-1.02)
[2020-01-21 09:27] VITALS: BP 137/56
[2020-01-21] MEDS: FLUTICASONE NASAL SPRAY 16GM NAS SCH ×2 (09:29→20:37)
[2020-01-21] MEDS: AMLODIPINE 10 MG TAB PO SCH (09:30)
[2020-01-21] MEDS: SENNA/DOCUSATE TABLET PO SCH (09:30)
[2020-01-21] MEDS: FUROSEMIDE 40 MG/4 ML IV SCH ×2 (09:30→17:08)
[2020-01-21] MEDS: ASPIRIN 81 MG TABLET EC PO SCH (09:30)
[2020-01-21] MEDS: METOLAZONE 5 MG TABLET PO SCH (09:31)
[2020-01-21] MEDS: ZONISAMIDE 50 MG CAPSULE PO SCH (09:31)
[2020-01-21] MEDS: MAGNESIUM CHLORIDE 64 MG TABLET.DR PO SCH ×2 (09:32→20:37)
[2020-01-21] MEDS: SERTRALINE 50MG TABLET PO SCH (09:32)
[2020-01-21] MEDS: GABAPENTIN 100 MG CAPSULE PO SCH ×3 (09:32→20:37)
[2020-01-21] MEDS: DOXAZOSIN 2MG TABLET PO SCH ×2 (09:32→20:37)
[2020-01-21] MEDS: ALLOPURINOL 100 MG TABLET PO SCH (09:32)
[2020-01-21] MEDS: ISOSORBIDE DINITRATE 10 MG TABLET PO SCH ×3 (09:32→20:36)
[2020-01-21 12:05] VITALS: BP 132/67
[2020-01-21 17:13] VITALS: BP 132/69
[2020-01-21 18:38] VITALS: BP 129/63
[2020-01-21] MEDS: ATORVASTATIN 10 MG TABLET PO SCH (20:37)
[2020-01-21] MEDS: DONEPEZIL 5 MG TABLET PO SCH (20:37)
[2020-01-22] VITALS (7 sets, daily range): BP systolic 115–144; BP diastolic 56–71
[2020-01-22] MEDS: PANTOPRAZOLE 40MG TABLET PO SCH ×2 (06:04→16:33)
[2020-01-22] MEDS: CARVEDILOL 25 MG TABLET PO SCH ×2 (06:04→18:02)
[2020-01-22] MEDS: HEPARIN 5,000 UNITS/ML, 1ML SQ SCH ×2 (06:04→18:02)
[2020-01-22 06:33] LABS: CHLORIDE 93 mmol/L (98-107)
[2020-01-22 06:38] LABS: ALBUMIN 3.3 g/dL (3.4-5.0); ANION GAP 7 mmol/L (5-15); CALCIUM 9.2 mg/dL (8.5-10.1); CREATININE 3.95 mg/dL (0.55-1.02)
[2020-01-22] MEDS: FUROSEMIDE 40 MG/4 ML IV SCH (08:18)
[2020-01-22] MEDS: ALLOPURINOL 100 MG TABLET PO SCH (10:26)
[2020-01-22] MEDS: ZONISAMIDE 50 MG CAPSULE PO SCH (10:27)
[2020-01-22] MEDS: ISOSORBIDE DINITRATE 10 MG TABLET PO SCH ×3 (10:27→20:01)
[2020-01-22] MEDS: GABAPENTIN 100 MG CAPSULE PO SCH ×3 (10:27→20:01)
[2020-01-22] MEDS: SERTRALINE 50MG TABLET PO SCH (10:27)
[2020-01-22] MEDS: ASPIRIN 81 MG TABLET EC PO SCH (10:27)
[2020-01-22] MEDS: AMLODIPINE 10 MG TAB PO SCH (10:27)
[2020-01-22] MEDS: DOXAZOSIN 2MG TABLET PO SCH ×2 (10:28→20:02)
[2020-01-22] MEDS: MAGNESIUM CHLORIDE 64 MG TABLET.DR PO SCH ×2 (10:28→20:01)
[2020-01-22] MEDS: SENNA/DOCUSATE TABLET PO SCH (10:28)
[2020-01-22] MEDS: METOLAZONE 5 MG TABLET PO SCH (10:28)
[2020-01-22] MEDS: FLUTICASONE NASAL SPRAY 16GM NAS SCH ×2 (10:34→20:02)
[2020-01-22] MEDS: FUROSEMIDE 80 MG TABLET PO SCH (16:34)
[2020-01-22] MEDS: ATORVASTATIN 10 MG TABLET PO SCH (20:01)
[2020-01-22] MEDS: DONEPEZIL 5 MG TABLET PO SCH (20:02)
[2020-01-23] VITALS (9 sets, daily range): BP systolic 107–142; BP diastolic 44–76
[2020-01-23 05:32] LABS: ANION GAP 7 mmol/L (5-15); CALCIUM 9.5 mg/dL (8.5-10.1); CHLORIDE 94 mmol/L (98-107); CREATININE 4.04 mg/dL (0.55-1.02)
[2020-01-23 05:33] LABS: ALANINE AMINOTRANSFERASE 47 U/L (12-78); ALBUMIN 3.4 g/dL (3.4-5.0)
[2020-01-23 05:35] LABS: ALKALINE PHOSPHATASE 96 U/L (45-117); BILIRUBIN,TOTAL 0.6 mg/dL (0.2-1.0); TOTAL PROTEIN 7.7 g/dL (6.4-8.2)
[2020-01-23] MEDS: PANTOPRAZOLE 40MG TABLET PO SCH ×2 (05:43→18:01)
[2020-01-23] MEDS: HEPARIN 5,000 UNITS/ML, 1ML SQ SCH ×2 (05:43→18:37)
[2020-01-23] MEDS: CARVEDILOL 25 MG TABLET PO SCH ×4 (05:43→20:15)
[2020-01-23] MEDS: ASPIRIN 81 MG TABLET EC PO SCH (08:33)
[2020-01-23] MEDS: SERTRALINE 50MG TABLET PO SCH (08:33)
[2020-01-23] MEDS: DOXAZOSIN 2MG TABLET PO SCH ×2 (08:33→20:12)
[2020-01-23] MEDS: ALLOPURINOL 100 MG TABLET PO SCH (08:34)
[2020-01-23] MEDS: MAGNESIUM CHLORIDE 64 MG TABLET.DR PO SCH ×2 (08:34→20:11)
[2020-01-23] MEDS: METOLAZONE 5 MG TABLET PO SCH (08:34)
[2020-01-23] MEDS: SENNA/DOCUSATE TABLET PO SCH (08:34)
[2020-01-23] MEDS: ISOSORBIDE DINITRATE 10 MG TABLET PO SCH ×3 (08:34→20:11)
[2020-01-23] MEDS: GABAPENTIN 100 MG CAPSULE PO SCH ×3 (08:35→20:10)
[2020-01-23] MEDS: CYCLOBENZAPRINE 10 MG TABLET PO PRN (08:35)
[2020-01-23] MEDS: ZONISAMIDE 50 MG CAPSULE PO SCH (08:35)
[2020-01-23] MEDS: AMLODIPINE 10 MG TAB PO SCH (08:35)
[2020-01-23] MEDS: FUROSEMIDE 80 MG TABLET PO SCH ×2 (08:36→18:01)
[2020-01-23] MEDS: FLUTICASONE NASAL SPRAY 16GM NAS SCH ×2 (09:00→20:13)
[2020-01-23] MEDS: MORPHINE SULFATE 4 MG/ML, 1ML IVPush PRN (13:58)
[2020-01-23] MEDS: DONEPEZIL 5 MG TABLET PO SCH (20:11)
[2020-01-23] MEDS: ATORVASTATIN 10 MG TABLET PO SCH (20:11)
[2020-01-24 01:01] VITALS: BP 143/61
[2020-01-24 01:30] VITALS: BP 151/68
[2020-01-24 05:37] VITALS: BP 147/67
[2020-01-24] MEDS: PANTOPRAZOLE 40MG TABLET PO SCH ×2 (05:38→16:48)
[2020-01-24] MEDS: HEPARIN 5,000 UNITS/ML, 1ML SQ SCH ×2 (05:38→17:45)
[2020-01-24] MEDS: CARVEDILOL 25 MG TABLET PO SCH ×4 (05:52→17:45)
[2020-01-24 06:27] VITALS: BP 147/63
[2020-01-24 08:24] LABS: ALANINE AMINOTRANSFERASE 62 U/L (12-78); ALBUMIN 3.5 g/dL (3.4-5.0); ANION GAP 10 mmol/L (5-15); CALCIUM 9.5 mg/dL (8.5-10.1); CHLORIDE 93 mmol/L (98-107); CREATININE 3.91 mg/dL (0.55-1.02)
[2020-01-24 08:25] LABS: ALKALINE PHOSPHATASE 103 U/L (45-117); BILIRUBIN,TOTAL 0.7 mg/dL (0.2-1.0); TOTAL PROTEIN 7.7 g/dL (6.4-8.2)
[2020-01-24] MEDS: ASPIRIN 81 MG TABLET EC PO SCH (08:56)
[2020-01-24] MEDS: METOLAZONE 5 MG TABLET PO SCH (08:56)
[2020-01-24] MEDS: ZONISAMIDE 50 MG CAPSULE PO SCH (08:56)
[2020-01-24] MEDS: SENNA/DOCUSATE TABLET PO SCH (08:56)
[2020-01-24] MEDS: FLUTICASONE NASAL SPRAY 16GM NAS SCH ×2 (08:56→21:37)
[2020-01-24] MEDS: SERTRALINE 50MG TABLET PO SCH (08:57)
[2020-01-24] MEDS: AMLODIPINE 10 MG TAB PO SCH (08:58)
[2020-01-24] MEDS: MAGNESIUM CHLORIDE 64 MG TABLET.DR PO SCH ×2 (08:58→21:37)
[2020-01-24] MEDS: DOXAZOSIN 2MG TABLET PO SCH ×2 (08:58→21:37)
[2020-01-24] MEDS: ALLOPURINOL 100 MG TABLET PO SCH (08:58)
[2020-01-24] MEDS: FUROSEMIDE 80 MG TABLET PO SCH ×2 (08:58→16:43)
[2020-01-24] MEDS: ISOSORBIDE DINITRATE 10 MG TABLET PO SCH ×3 (08:58→21:37)
[2020-01-24] MEDS: GABAPENTIN 100 MG CAPSULE PO SCH ×3 (08:59→21:37)
[2020-01-24] MEDS: MORPHINE SULFATE 4 MG/ML, 1ML IVPush PRN ×3 (12:52→21:37)
[2020-01-24 13:55] VITALS: BP 124/55
[2020-01-24 18:47] VITALS: BP 140/58
[2020-01-24] MEDS: DONEPEZIL 5 MG TABLET PO SCH (21:36)
[2020-01-24] MEDS: ATORVASTATIN 10 MG TABLET PO SCH (21:37)
[2020-01-25 01:09] VITALS: BP 131/63
[2020-01-25] MEDS: MORPHINE SULFATE 4 MG/ML, 1ML IVPush PRN (03:51)
[2020-01-25] MEDS: CARVEDILOL 25 MG TABLET PO SCH ×2 (05:48→16:41)
[2020-01-25] MEDS: PANTOPRAZOLE 40MG TABLET PO SCH ×2 (05:48→16:47)
[2020-01-25] MEDS: HEPARIN 5,000 UNITS/ML, 1ML SQ SCH ×2 (05:49→16:47)
[2020-01-25 06:03] LABS: ALANINE AMINOTRANSFERASE 49 U/L (12-78); ALBUMIN 3.5 g/dL (3.4-5.0); ANION GAP 9 mmol/L (5-15); CALCIUM 9.7 mg/dL (8.5-10.1); CHLORIDE 93 mmol/L (98-107)
[2020-01-25 06:06] LABS: ALKALINE PHOSPHATASE 91 U/L (45-117); BILIRUBIN,TOTAL 0.9 mg/dL (0.2-1.0); CREATININE 3.88 mg/dL (0.55-1.02); TOTAL PROTEIN 7.6 g/dL (6.4-8.2)
[2020-01-25] MEDS: ISOSORBIDE DINITRATE 10 MG TABLET PO SCH ×3 (07:51→21:25)
[2020-01-25] MEDS: ZONISAMIDE 50 MG CAPSULE PO SCH (07:51)
[2020-01-25] MEDS: DOXAZOSIN 2MG TABLET PO SCH ×2 (07:52→21:25)
[2020-01-25] MEDS: MAGNESIUM CHLORIDE 64 MG TABLET.DR PO SCH ×3 (07:52→21:28)
[2020-01-25] MEDS: ALLOPURINOL 100 MG TABLET PO SCH (07:53)
[2020-01-25] MEDS: GABAPENTIN 100 MG CAPSULE PO SCH ×4 (07:53→21:25)
[2020-01-25] MEDS: METOLAZONE 5 MG TABLET PO SCH (07:54)
[2020-01-25] MEDS: AMLODIPINE 10 MG TAB PO SCH (07:54)
[2020-01-25] MEDS: ASPIRIN 81 MG TABLET EC PO SCH (07:54)
[2020-01-25] MEDS: SERTRALINE 50MG TABLET PO SCH (07:55)
[2020-01-25] MEDS: FUROSEMIDE 80 MG TABLET PO SCH ×2 (07:55→16:47)
[2020-01-25] MEDS: FLUTICASONE NASAL SPRAY 16GM NAS SCH ×2 (07:55→21:00)
[2020-01-25] MEDS: SENNA/DOCUSATE TABLET PO SCH (07:55)
[2020-01-25 07:56] VITALS: BP 130/57
[2020-01-25 12:41] VITALS: BP 137/49
[2020-01-25 19:06] VITALS: BP 137/69
[2020-01-25] MEDS: ATORVASTATIN 10 MG TABLET PO SCH (21:25)
[2020-01-25] MEDS: DONEPEZIL 5 MG TABLET PO SCH (21:25)
[2020-01-26 00:52] VITALS: BP 136/71
[2020-01-26] MEDS: CARVEDILOL 25 MG TABLET PO SCH ×2 (04:23→17:12)
[2020-01-26] MEDS: HEPARIN 5,000 UNITS/ML, 1ML SQ SCH ×2 (04:23→17:13)
[2020-01-26] MEDS: PANTOPRAZOLE 40MG TABLET PO SCH ×2 (04:24→17:12)
[2020-01-26 06:54] LABS: ALANINE AMINOTRANSFERASE 50 U/L (12-78); ALBUMIN 3.8 g/dL (3.4-5.0); ANION GAP 9 mmol/L (5-15); CHLORIDE 91 mmol/L (98-107); CREATININE 4.07 mg/dL (0.55-1.02)
[2020-01-26 06:55] VITALS: BP 143/64
[2020-01-26 06:57] LABS: ALKALINE PHOSPHATASE 116 U/L (45-117); BILIRUBIN,TOTAL 0.8 mg/dL (0.2-1.0); TOTAL PROTEIN 8.6 g/dL (6.4-8.2)
[2020-01-26] MEDS: MAGNESIUM CHLORIDE 64 MG TABLET.DR PO SCH ×2 (08:32→20:37)
[2020-01-26] MEDS: POLYETHYLENE GLYCOL 17 GM PACKET PO PRN (08:32)
[2020-01-26] MEDS: ASPIRIN 81 MG TABLET EC PO SCH (08:32)
[2020-01-26] MEDS: DOXAZOSIN 2MG TABLET PO SCH ×2 (08:33→20:38)
[2020-01-26] MEDS: ZONISAMIDE 50 MG CAPSULE PO SCH (08:33)
[2020-01-26] MEDS: GABAPENTIN 100 MG CAPSULE PO SCH ×3 (08:34→20:37)
[2020-01-26] MEDS: ALLOPURINOL 100 MG TABLET PO SCH (08:34)
[2020-01-26] MEDS: SERTRALINE 50MG TABLET PO SCH (08:34)
[2020-01-26] MEDS: METOLAZONE 5 MG TABLET PO SCH (08:34)
[2020-01-26] MEDS: FLUTICASONE NASAL SPRAY 16GM NAS SCH ×2 (08:35→20:37)
[2020-01-26] MEDS: FUROSEMIDE 80 MG TABLET PO SCH ×2 (08:35→17:13)
[2020-01-26] MEDS: ISOSORBIDE DINITRATE 10 MG TABLET PO SCH ×3 (08:38→20:38)
[2020-01-26] MEDS: SENNA/DOCUSATE TABLET PO SCH (08:39)
[2020-01-26] MEDS: AMLODIPINE 10 MG TAB PO SCH (08:41)
[2020-01-26] MEDS ORDERED: FURO80TA3 PO (13:07)
[2020-01-26] MEDS ORDERED: METO5TAB5 PO (13:07)
[2020-01-26] MEDS ORDERED: GABA-826 PO (13:07)
[2020-01-26 13:53] VITALS: BP 133/61
[2020-01-26] MEDS: BISACODYL 10 MG SUPP PR PRN (17:14)
[2020-01-26 18:39] VITALS: BP 136/70
[2020-01-26] MEDS: DONEPEZIL 5 MG TABLET PO SCH (20:37)
[2020-01-26] MEDS: ATORVASTATIN 10 MG TABLET PO SCH (20:38)
[2020-01-27 00:50] VITALS: BP 134/65
[2020-01-27 04:58] LABS: ALANINE AMINOTRANSFERASE 44 U/L (12-78); ALBUMIN 3.6 g/dL (3.4-5.0); ANION GAP 9 mmol/L (5-15); CALCIUM 9.6 mg/dL (8.5-10.1); CHLORIDE 92 mmol/L (98-107)
[2020-01-27 05:01] LABS: ALKALINE PHOSPHATASE 101 U/L (45-117); BILIRUBIN,TOTAL 0.7 mg/dL (0.2-1.0)
[2020-01-27] MEDS: CARVEDILOL 25 MG TABLET PO SCH (05:34)
[2020-01-27] MEDS: HEPARIN 5,000 UNITS/ML, 1ML SQ SCH (05:34)
[2020-01-27] MEDS: PANTOPRAZOLE 40MG TABLET PO SCH (05:41)
[2020-01-27 07:05] VITALS: BP 141/62
[2020-01-27] MEDS: FLUTICASONE NASAL SPRAY 16GM NAS SCH (08:44)
[2020-01-27] MEDS: GABAPENTIN 100 MG CAPSULE PO SCH (08:45)
[2020-01-27] MEDS: AMLODIPINE 10 MG TAB PO SCH (08:45)
[2020-01-27] MEDS: SERTRALINE 50MG TABLET PO SCH (08:45)
[2020-01-27] MEDS: ZONISAMIDE 50 MG CAPSULE PO SCH (08:45)
[2020-01-27] MEDS: ALLOPURINOL 100 MG TABLET PO SCH (08:45)
[2020-01-27] MEDS: METOLAZONE 5 MG TABLET PO SCH (08:46)
[2020-01-27] MEDS: FUROSEMIDE 80 MG TABLET PO SCH (08:46)
[2020-01-27] MEDS: SENNA/DOCUSATE TABLET PO SCH (08:46)
[2020-01-27] MEDS: ISOSORBIDE DINITRATE 10 MG TABLET PO SCH (08:46)
[2020-01-27] MEDS: ASPIRIN 81 MG TABLET EC PO SCH (08:47)
[2020-01-27] MEDS: DOXAZOSIN 2MG TABLET PO SCH (08:47)
[2020-01-27] MEDS: MAGNESIUM CHLORIDE 64 MG TABLET.DR PO SCH (08:47)
[2020-01-27] MEDS: BISACODYL 10 MG SUPP PR PRN (12:33)
[2020-01-27 13:35] VITALS: BP 130/64
== END 2020-01-27 15:15 | disposition home health service (06) | DRG 682 ==
LOC: ED 13:17 → EDIP 13:22 → 5SO 16:55 → EDIP 17:02 → 5SO 17:24 → 4WST 01-19 03:29
PROVIDERS: ADMIT Hospitalist; ATTEND Internal Medicine
DX: N17.9 Acute kidney failure, unspecified (principal); I50.33 Acute on chronic diastolic (congestive) heart failure; J96.21 Acute and chronic respiratory failure with hypoxia; G92 Toxic encephalopathy; I13.0 Hypertensive heart and chronic kidney disease with heart failure and stage 1 through stage 4 chronic kidney disease, or unspecified chronic kidney disease; Z68.41 Body mass index [BMI] 40.0-44.9, adult; E46 Unspecified protein-calorie malnutrition; E87.1 Hypo-osmolality and hyponatremia; E87.3 Alkalosis; N39.0 Urinary tract infection, site not specified; Z16.12 Extended spectrum beta lactamase (ESBL) resistance; N18.4 Chronic kidney disease, stage 4 (severe); D57.3 Sickle-cell trait; D63.8 Anemia in other chronic diseases classified elsewhere; E78.5 Hyperlipidemia, unspecified; E87.6 Hypokalemia; F03.90 Unspecified dementia, unspecified severity, without behavioral disturbance, psychotic disturbance, mood disturbance, and anxiety; I05.0 Rheumatic mitral stenosis; F13.90 Sedative, hypnotic, or anxiolytic use, unspecified, uncomplicated; F41.9 Anxiety disorder, unspecified; Z66 Do not resuscitate; Z51.5 Encounter for palliative care; I27.20 Pulmonary hypertension, unspecified; I25.2 Old myocardial infarction; J44.9 Chronic obstructive pulmonary disease, unspecified; M10.9 Gout, unspecified; N25.0 Renal osteodystrophy; R62.7 Adult failure to thrive; Z79.4 Long term (current) use of insulin; Z82.49 Family history of ischemic heart disease and other diseases of the circulatory system; Z83.3 Family history of diabetes mellitus; Z87.891 Personal history of nicotine dependence; Z99.81 Dependence on supplemental oxygen; Z88.5 Allergy status to narcotic agent; Z88.0 Allergy status to penicillin; Z91.013 Allergy to seafood
CPT/HCPCS: 10035; 36415; 36600; 51702; 71045; 71250; 76642; 80048; 80053; 80069; 81001; 82306; 82728; 82803; 83540; 83550; 83735; 83880; 83970; 84100; 84145; 84484; 84550; 85025; 87077; 87086; 87186; 93005; 93922; 93970; 96374; 99291; G0378; J0696; J1644; J1940; J2405; Q0162; J1120; J2060; J2270; J3475

== ENCOUNTER 2020-02-02 00:33 | Inpatient (IN) | payer MEDICARE ==
[~2020-02-02] VITALS: Ht 165.1 cm; Wt 67.6 kg
[~2020-02-02 00:33] MED LIST changes: +METO5TAB5 PO; +ZONI100C29 PO
--- NOTE | 2020-02-02 00:51 | NUR ---
Patient presents to ER c/o global pain. Patient states it started suddenly. Denies trauma. Patient is in obvious pain. Respirations even and unlabored.
[2020-02-02] MEDS ORDERED: ONDANSETRON 2MG/ML, 2ML ONE (00:53)
[2020-02-02] MEDS ORDERED: MORPHINE SULFATE 4 MG/ML, 1ML ONE ×2 (00:54→01:19)
[2020-02-02] MEDS ORDERED: ONDANSETRON 2MG/ML, 2ML IVPush ONE (01:00)
[2020-02-02] MEDS: MORPHINE SULFATE 4 MG/ML, 1ML IVPush PRN ×2 (01:13→01:38)
[2020-02-02 01:24] LABS: MEAN CORPUSCULAR HEMOGLOBIN 28.9 pg (27.0-34.8); MEAN CORPUSCULAR HGB CONC 33.1 g/dL (32.4-35.8); MEAN CORPUSCULAR VOLUME 87.3 fL (80-100); MEAN PLATELET VOLUME 7.3 fL (7.4-10.4); PLATELET COUNT 431 x10^3/uL (130-400); RED BLOOD COUNT 3.26 x10^6/uL (3.82-5.3); RED CELL DISTRIBUTION WIDTH 16.2 % (9.6-15.2)
[2020-02-02 01:33] LABS: ALANINE AMINOTRANSFERASE 43 U/L (12-78); ALBUMIN 3.4 g/dL (3.4-5.0); ANION GAP 12 mmol/L (5-15); CALCIUM 9.6 mg/dL (8.5-10.1); CHLORIDE 90 mmol/L (98-107); CREATININE 5.33 mg/dL (0.55-1.02)
[2020-02-02 01:35] LABS: ALKALINE PHOSPHATASE 119 U/L (45-117); BILIRUBIN,TOTAL 0.6 mg/dL (0.2-1.0); TOTAL PROTEIN 8.7 g/dL (6.4-8.2)
--- NOTE | 2020-02-02 01:43 | NUR ---
Patient states the pain is worse in her neck. Patient still c/o 10/10 pain. Medicated patient per dec.
[2020-02-02 01:45] LABS: MD YES
[2020-02-02 01:48] LABS: LYMPH#(MANUAL) 0.83 x10^3/uL (1-3.4); LYMPHS% (MANUAL) 10 % (22-44); MONOS#(MANUAL) 1.08 x10^3/uL (0.3-2.7); MONOS% (MANUAL) 13 % (2-9); SEG#(MANUAL) 6.39 x10^3/uL (1.8-6.8); SEGS% (MANUAL) 77 % (42-75)
[2020-02-02 01:49] LABS: <PLATELET ESTIMATE> INCREASED; ANISOCYTOSIS 1+; HYPOCHROMIA 1+; SMALL PLATELETS 1+
--- NOTE | 2020-02-02 01:52 | NUR ---
Patient unable to urinate due to pain.
[2020-02-02] MEDS ORDERED: ONDANSETRON 2MG/ML, 2ML IVPush PRN (03:30)
[2020-02-02] MEDS ORDERED: MORPHINE SULFATE 4 MG/ML, 1ML IVPush PRN (03:30)
[2020-02-02 03:32] LABS: CULTURE INDICATED? YES; MICROSCOPIC INDICATED
[2020-02-02] MEDS ORDERED: CEFTRIAXONE PMX 1GM/50ML 50 ML ONE (04:19)
[2020-02-02] MEDS: CEFTRIAXONE PMX 1GM/50ML 50 ML IV SCH (04:27)
[2020-02-02] MEDS ORDERED: morphine SULFATE 10 MG/ML, 1ML IVPush PRN (04:30)
[2020-02-02] MEDS ORDERED: FOSFOMYCIN 3 GM PACKET PO ONE (04:30)
--- NOTE | 2020-02-02 04:43 | NUR ---
Report given to DAYSI Valadez. Patient to be transferred to room 485
[2020-02-02 05:44] VITALS: BP 145/68
[2020-02-02] MEDS: PANTOPRAZOLE 40MG TABLET PO SCH ×3 (06:29→18:10)
[2020-02-02] MEDS: CARVEDILOL 25 MG TABLET PO SCH ×3 (06:29→18:11)
[2020-02-02 07:57] VITALS: BP 133/54
[2020-02-02] MEDS ORDERED: FUROSEMIDE 80 MG TABLET PO SCH (08:00)
[2020-02-02] MEDS ORDERED: FUROSEMIDE 40 MG/4 ML IV SCH (09:00)
[2020-02-02] MEDS ORDERED: POTASSIUM CHLORIDE 20 MEQ TAB.ER.PRT PO ONE (09:00)
[2020-02-02] MEDS: METOLAZONE 2.5 MG TABLET PO SCH (10:31)
[2020-02-02] MEDS: DONEPEZIL 5 MG TABLET PO SCH (10:33)
[2020-02-02] MEDS: GABAPENTIN 100 MG CAPSULE PO SCH ×3 (10:33→21:13)
[2020-02-02] MEDS: AMLODIPINE 10 MG TAB PO SCH (10:34)
[2020-02-02] MEDS: SERTRALINE 50MG TABLET PO SCH (10:34)
[2020-02-02] MEDS: ASPIRIN 81 MG TABLET EC PO SCH (10:34)
[2020-02-02] MEDS: ISOSORBIDE DINITRATE 10 MG TABLET PO SCH ×3 (10:36→21:00)
[2020-02-02] MEDS: DOXAZOSIN 2MG TABLET PO SCH ×2 (10:36→21:00)
[2020-02-02 12:42] VITALS: BP 131/63
[2020-02-02] MEDS: SODIUM CHLORIDE 0.9% 1,000 ML IV SCH (13:52)
[2020-02-02 17:03] VITALS: BP 122/63
[2020-02-02 19:40] VITALS: BP 113/65
[2020-02-02] MEDS: ATORVASTATIN 10 MG TABLET PO SCH (21:12)
[2020-02-02] MEDS: MELATONIN 5 MG TABLET PO SCH (21:13)
[2020-02-03 01:13] VITALS: BP 119/60
[2020-02-03] MEDS: CEFTRIAXONE PMX 1GM/50ML 50 ML IV SCH (03:37)
[2020-02-03 05:06] LABS: ANION GAP 9 mmol/L (5-15); CHLORIDE 95 mmol/L (98-107); CREATININE 5.44 mg/dL (0.55-1.02)
[2020-02-03 05:07] LABS: BASOPHILS % (AUTO) 0 % (0-1); EOSINOPHILS # (AUTO) 0.08 x10^3/uL (0-0.4); EOSINOPHILS % (AUTO) 1 % (1-7); LYMPHOCYTES # (AUTO) 0.96 x10^3/uL (1-3.4); LYMPHOCYTES % (AUTO) 13 % (22-44); MD NO; MEAN CORPUSCULAR HEMOGLOBIN 28.7 pg (27.0-34.8); MEAN CORPUSCULAR HGB CONC 32.2 g/dL (32.4-35.8); MEAN PLATELET VOLUME 7.3 fL (7.4-10.4); MONOCYTES # (AUTO) 0.92 x10^3/uL (0.2-0.8); MONOCYTES % (AUTO) 13 % (2-9); NEUTROPHILS # (AUTO) 5.19 x10^3/uL (1.8-6.8); NEUTROPHILS % (AUTO) 73 % (42-75); PLATELET COUNT 358 x10^3/uL (130-400); RED BLOOD COUNT 2.68 x10^6/uL (3.82-5.3)
[2020-02-03] MEDS: PANTOPRAZOLE 40MG TABLET PO SCH ×2 (06:03→17:04)
[2020-02-03] MEDS: CARVEDILOL 25 MG TABLET PO SCH ×2 (06:03→18:10)
[2020-02-03 08:02] VITALS: BP 125/62
[2020-02-03] MEDS: SERTRALINE 50MG TABLET PO SCH (08:43)
[2020-02-03] MEDS: DONEPEZIL 5 MG TABLET PO SCH (08:43)
[2020-02-03] MEDS: ASPIRIN 81 MG TABLET EC PO SCH (08:43)
[2020-02-03] MEDS: ISOSORBIDE DINITRATE 10 MG TABLET PO SCH ×3 (08:44→20:36)
[2020-02-03] MEDS: GABAPENTIN 100 MG CAPSULE PO SCH ×3 (08:44→20:36)
[2020-02-03] MEDS: DOXAZOSIN 2MG TABLET PO SCH ×2 (08:44→20:37)
[2020-02-03] MEDS: AMLODIPINE 10 MG TAB PO SCH (08:44)
[2020-02-03] MEDS: SODIUM CHLORIDE 0.9% 1,000 ML IV SCH (08:45)
[2020-02-03] MEDS: METOLAZONE 2.5 MG TABLET PO SCH (08:45)
[2020-02-03 12:17] VITALS: BP 121/65
[2020-02-03 18:09] VITALS: BP 130/56
[2020-02-03 19:00] VITALS: BP 130/74
[2020-02-03] MEDS: MELATONIN 5 MG TABLET PO SCH (20:36)
[2020-02-03] MEDS: ATORVASTATIN 10 MG TABLET PO SCH (20:36)
[2020-02-04 00:27] VITALS: BP 132/64
[2020-02-04] MEDS: CEFTRIAXONE PMX 1GM/50ML 50 ML IV SCH (04:09)
[2020-02-04] MEDS: SODIUM CHLORIDE 0.9% 1,000 ML IV SCH (04:09)
[2020-02-04 05:24] VITALS: BP 118/64
[2020-02-04 05:25] LABS: BASOPHILS % (AUTO) 0 % (0-1); EOSINOPHILS # (AUTO) 0.11 x10^3/uL (0-0.4); EOSINOPHILS % (AUTO) 2 % (1-7); LYMPHOCYTES # (AUTO) 0.76 x10^3/uL (1-3.4); LYMPHOCYTES % (AUTO) 11 % (22-44); MD NO; MEAN CORPUSCULAR HEMOGLOBIN 28.7 pg (27.0-34.8); MEAN CORPUSCULAR HGB CONC 32.2 g/dL (32.4-35.8); MEAN CORPUSCULAR VOLUME 89.3 fL (80-100); MEAN PLATELET VOLUME 6.8 fL (7.4-10.4); MONOCYTES # (AUTO) 0.62 x10^3/uL (0.2-0.8); MONOCYTES % (AUTO) 9 % (2-9); NEUTROPHILS # (AUTO) 5.41 x10^3/uL (1.8-6.8); NEUTROPHILS % (AUTO) 78 % (42-75); PLATELET COUNT 390 x10^3/uL (130-400); RED BLOOD COUNT 2.62 x10^6/uL (3.82-5.3); RED CELL DISTRIBUTION WIDTH 16.2 % (9.6-15.2)
[2020-02-04] MEDS: CARVEDILOL 25 MG TABLET PO SCH ×2 (05:25→17:29)
[2020-02-04] MEDS: PANTOPRAZOLE 40MG TABLET PO SCH ×2 (05:26→15:49)
[2020-02-04 05:36] LABS: ALBUMIN 2.9 g/dL (3.4-5.0); ANION GAP 11 mmol/L (5-15); CALCIUM 8.8 mg/dL (8.5-10.1); CHLORIDE 96 mmol/L (98-107)
[2020-02-04 05:39] LABS: ALANINE AMINOTRANSFERASE 24 U/L (12-78); ALKALINE PHOSPHATASE 96 U/L (45-117); BILIRUBIN,TOTAL 0.5 mg/dL (0.2-1.0); CREATININE 5.44 mg/dL (0.55-1.02); TOTAL PROTEIN 7.3 g/dL (6.4-8.2)
[2020-02-04 07:26] VITALS: BP 132/56
[2020-02-04] MEDS: DOXAZOSIN 2MG TABLET PO SCH ×2 (08:52→20:48)
[2020-02-04] MEDS: SERTRALINE 50MG TABLET PO SCH ×2 (08:52→09:00)
[2020-02-04] MEDS: DONEPEZIL 5 MG TABLET PO SCH ×2 (08:52→09:00)
[2020-02-04] MEDS: GABAPENTIN 100 MG CAPSULE PO SCH ×4 (08:52→20:47)
[2020-02-04] MEDS: AMLODIPINE 10 MG TAB PO SCH ×2 (08:52→09:00)
[2020-02-04] MEDS: ASPIRIN 81 MG TABLET EC PO SCH ×2 (08:52→09:00)
[2020-02-04] MEDS: ISOSORBIDE DINITRATE 10 MG TABLET PO SCH ×4 (08:52→20:45)
[2020-02-04] MEDS: METOLAZONE 2.5 MG TABLET PO SCH ×2 (08:53→09:00)
[2020-02-04 16:36] VITALS: BP 154/78
[2020-02-04] MEDS: ONDANSETRON 2MG/ML, 2ML IVPush PRN (16:44)
[2020-02-04 18:47] VITALS: BP 144/50
[2020-02-04] MEDS: MELATONIN 5 MG TABLET PO SCH (20:47)
[2020-02-04] MEDS: ATORVASTATIN 10 MG TABLET PO SCH (20:47)
[2020-02-05] MEDS: SODIUM CHLORIDE 0.9% 1,000 ML IV SCH (00:09)
[2020-02-05 01:09] VITALS: BP 129/65
[2020-02-05] MEDS: CEFTRIAXONE PMX 1GM/50ML 50 ML IV SCH (04:54)
[2020-02-05] MEDS: CARVEDILOL 25 MG TABLET PO SCH ×2 (05:27→17:36)
[2020-02-05] MEDS: PANTOPRAZOLE 40MG TABLET PO SCH ×2 (05:27→16:00)
[2020-02-05 06:04] LABS: ALBUMIN 2.9 g/dL (3.4-5.0); ANION GAP 10 mmol/L (5-15); CALCIUM 9.2 mg/dL (8.5-10.1); CHLORIDE 99 mmol/L (98-107)
[2020-02-05 06:08] LABS: ALANINE AMINOTRANSFERASE 22 U/L (12-78); ALKALINE PHOSPHATASE 99 U/L (45-117); BILIRUBIN,TOTAL 0.5 mg/dL (0.2-1.0); CREATININE 4.87 mg/dL (0.55-1.02); TOTAL PROTEIN 7.5 g/dL (6.4-8.2)
[2020-02-05 06:20] LABS: BASOPHILS # (AUTO) 0.01 x10^3/uL (0-0.1); BASOPHILS % (AUTO) 0 % (0-1); EOSINOPHILS # (AUTO) 0.11 x10^3/uL (0-0.4); EOSINOPHILS % (AUTO) 2 % (1-7); LYMPHOCYTES # (AUTO) 0.77 x10^3/uL (1-3.4); LYMPHOCYTES % (AUTO) 11 % (22-44); MD NO; MEAN CORPUSCULAR HGB CONC 32.7 g/dL (32.4-35.8); MEAN CORPUSCULAR VOLUME 88.6 fL (80-100); MONOCYTES # (AUTO) 0.58 x10^3/uL (0.2-0.8); MONOCYTES % (AUTO) 8 % (2-9); NEUTROPHILS # (AUTO) 5.61 x10^3/uL (1.8-6.8); NEUTROPHILS % (AUTO) 79 % (42-75); PLATELET COUNT 425 x10^3/uL (130-400); RED BLOOD COUNT 2.68 x10^6/uL (3.82-5.3); RED CELL DISTRIBUTION WIDTH 16.4 % (9.6-15.2)
[2020-02-05 06:38] VITALS: BP 146/54
[2020-02-05] MEDS: AMLODIPINE 10 MG TAB PO SCH (08:07)
[2020-02-05] MEDS: ASPIRIN 81 MG TABLET EC PO SCH (08:07)
[2020-02-05] MEDS: DONEPEZIL 5 MG TABLET PO SCH (08:08)
[2020-02-05] MEDS: SERTRALINE 50MG TABLET PO SCH (08:08)
[2020-02-05] MEDS: ISOSORBIDE DINITRATE 10 MG TABLET PO SCH ×4 (08:09→20:06)
[2020-02-05] MEDS: DOXAZOSIN 2MG TABLET PO SCH ×3 (08:09→20:05)
[2020-02-05] MEDS: METOLAZONE 2.5 MG TABLET PO SCH (08:09)
[2020-02-05] MEDS: GABAPENTIN 100 MG CAPSULE PO SCH ×4 (08:09→20:05)
[2020-02-05 11:40] LABS: TROPONIN I < 0.015 ng/mL (0.000-0.045)
[2020-02-05 12:34] VITALS: BP 147/73
[2020-02-05 16:22] LABS: TROPONIN I < 0.015 ng/mL (0.000-0.045)
[2020-02-05 19:35] VITALS: BP 149/58
[2020-02-05] MEDS: MELATONIN 5 MG TABLET PO SCH ×2 (19:53→20:09)
[2020-02-05] MEDS: ATORVASTATIN 10 MG TABLET PO SCH ×2 (19:53→20:06)
[2020-02-05 20:38] LABS: TROPONIN I < 0.015 ng/mL (0.000-0.045)
[2020-02-06 01:14] VITALS: BP 130/54
[2020-02-06] MEDS: CEFTRIAXONE PMX 1GM/50ML 50 ML IV SCH (05:17)
[2020-02-06 05:26] LABS: ALANINE AMINOTRANSFERASE 19 U/L (12-78); ALBUMIN 2.8 g/dL (3.4-5.0); ANION GAP 10 mmol/L (5-15); CALCIUM 9.2 mg/dL (8.5-10.1); CHLORIDE 103 mmol/L (98-107)
[2020-02-06 05:29] LABS: ALKALINE PHOSPHATASE 94 U/L (45-117); BILIRUBIN,TOTAL 0.4 mg/dL (0.2-1.0); CREATININE 4.01 mg/dL (0.55-1.02); TOTAL PROTEIN 7.2 g/dL (6.4-8.2)
[2020-02-06 05:37] LABS: MEAN CORPUSCULAR HGB CONC 32.7 g/dL (32.4-35.8); MEAN CORPUSCULAR VOLUME 88.6 fL (80-100); MEAN PLATELET VOLUME 6.8 fL (7.4-10.4); PLATELET COUNT 453 x10^3/uL (130-400); RED BLOOD COUNT 2.55 x10^6/uL (3.82-5.3); RED CELL DISTRIBUTION WIDTH 16.6 % (9.6-15.2)
[2020-02-06] MEDS: PANTOPRAZOLE 40MG TABLET PO SCH ×2 (06:00→16:00)
[2020-02-06 06:04] LABS: MD YES
[2020-02-06 06:06] LABS: ANISOCYTOSIS 1+; EOS#(MANUAL) 0.14 x10^3/uL (0.0-0.4); EOS% (MANUAL) 2 % (1-7); HYPOCHROMIA 1+; LYMPH#(MANUAL) 0.58 x10^3/uL (1-3.4); LYMPHS% (MANUAL) 8 % (22-44); MONOS% (MANUAL) 7 % (2-9); SEG#(MANUAL) 5.98 x10^3/uL (1.8-6.8); SEGS% (MANUAL) 83 % (42-75)
[2020-02-06 06:07] LABS: <PLATELET ESTIMATE> INCREASED; <PLT MORPHOLOGY> NORMAL PLT MORPH
[2020-02-06 06:16] VITALS: BP 146/64
[2020-02-06] MEDS: CARVEDILOL 25 MG TABLET PO SCH ×2 (08:00→18:00)
[2020-02-06] MEDS: ASPIRIN 81 MG TABLET EC PO SCH (08:25)
[2020-02-06] MEDS: ISOSORBIDE DINITRATE 10 MG TABLET PO SCH ×3 (08:25→20:24)
[2020-02-06] MEDS: GABAPENTIN 100 MG CAPSULE PO SCH ×3 (08:25→20:25)
[2020-02-06] MEDS: SERTRALINE 50MG TABLET PO SCH (08:25)
[2020-02-06] MEDS: SODIUM CHLORIDE 0.9% 1,000 ML IV SCH (08:25)
[2020-02-06] MEDS: METOLAZONE 2.5 MG TABLET PO SCH (08:25)
[2020-02-06] MEDS ORDERED: POTASSIUM CHLORIDE 20 MEQ TAB.ER.PRT PO ONE (08:30)
[2020-02-06] MEDS: DOXAZOSIN 2MG TABLET PO SCH ×2 (08:31→20:26)
[2020-02-06] MEDS: DONEPEZIL 5 MG TABLET PO SCH (08:31)
[2020-02-06] MEDS: AMLODIPINE 10 MG TAB PO SCH (08:31)
[2020-02-06] MEDS: ONDANSETRON 2MG/ML, 2ML IVPush PRN (11:27)
[2020-02-06 12:05] VITALS: BP 131/62
[2020-02-06] MEDS: PIPERACILLIN/TAZO/PMX 2.25GM 50 ML IVPB SCH ×2 (15:47→23:31)
[2020-02-06 18:37] VITALS: BP 126/57
[2020-02-06] MEDS: ATORVASTATIN 10 MG TABLET PO SCH (20:25)
[2020-02-06] MEDS: MELATONIN 5 MG TABLET PO SCH (20:26)
[2020-02-06] MEDS: OXYcodone IR 5MG TABLET PO PRN (23:32)
[2020-02-07] MEDS: OXYcodone IR 5MG TABLET PO PRN ×2 (00:23→20:11)
[2020-02-07 00:56] VITALS: BP 132/63
[2020-02-07] MEDS: SODIUM CHLORIDE 0.9% 1,000 ML IV SCH (02:21)
[2020-02-07] MEDS: PANTOPRAZOLE 40MG TABLET PO SCH ×2 (05:18→16:18)
[2020-02-07] MEDS: CARVEDILOL 25 MG TABLET PO SCH ×2 (05:18→18:03)
[2020-02-07 06:09] LABS: ALBUMIN 2.9 g/dL (3.4-5.0); ANION GAP 9 mmol/L (5-15); CALCIUM 9.3 mg/dL (8.5-10.1); CHLORIDE 103 mmol/L (98-107)
[2020-02-07 06:13] LABS: ALANINE AMINOTRANSFERASE 19 U/L (12-78); ALKALINE PHOSPHATASE 92 U/L (45-117); BILIRUBIN,TOTAL 0.4 mg/dL (0.2-1.0); CREATININE 3.45 mg/dL (0.55-1.02); TOTAL PROTEIN 7.3 g/dL (6.4-8.2)
[2020-02-07 06:16] LABS: MEAN CORPUSCULAR HEMOGLOBIN 29.6 pg (27.0-34.8); MEAN CORPUSCULAR HGB CONC 33.5 g/dL (32.4-35.8); MEAN CORPUSCULAR VOLUME 88.6 fL (80-100); MEAN PLATELET VOLUME 6.7 fL (7.4-10.4); PLATELET COUNT 463 x10^3/uL (130-400); RED BLOOD COUNT 2.56 x10^6/uL (3.82-5.3); RED CELL DISTRIBUTION WIDTH 16.9 % (9.6-15.2)
[2020-02-07 06:55] LABS: MD YES
[2020-02-07 06:58] LABS: BASOS#(MANUAL) 0.06 x10^3/uL (0-0.1); BASOS% (MANUAL) 1 % (0-1); EOS#(MANUAL) 0.19 x10^3/uL (0.0-0.4); EOS% (MANUAL) 3 % (1-7); LYMPH#(MANUAL) 1.12 x10^3/uL (1-3.4); LYMPHS% (MANUAL) 18 % (22-44); MONOS% (MANUAL) 8 % (2-9); SEG#(MANUAL) 4.34 x10^3/uL (1.8-6.8); SEGS% (MANUAL) 70 % (42-75)
[2020-02-07 07:00] LABS: ANISOCYTOSIS 1+
[2020-02-07 07:01] LABS: <PLATELET ESTIMATE> INCREASED; <PLT MORPHOLOGY> NORMAL PLT MORPH; HYPOCHROMIA 1+; POLYCHROMASIA 1+
[2020-02-07] MEDS: PIPERACILLIN/TAZO/PMX 2.25GM 50 ML IVPB SCH ×3 (07:25→22:42)
[2020-02-07 07:46] VITALS: BP 153/63
[2020-02-07] MEDS: GABAPENTIN 100 MG CAPSULE PO SCH ×3 (08:01→20:12)
[2020-02-07] MEDS: METOLAZONE 2.5 MG TABLET PO SCH (08:01)
[2020-02-07] MEDS: AMLODIPINE 10 MG TAB PO SCH (08:01)
[2020-02-07] MEDS: SERTRALINE 50MG TABLET PO SCH (08:01)
[2020-02-07] MEDS: ISOSORBIDE DINITRATE 10 MG TABLET PO SCH ×3 (08:01→20:12)
[2020-02-07] MEDS: ASPIRIN 81 MG TABLET EC PO SCH (08:01)
[2020-02-07] MEDS: DOXAZOSIN 2MG TABLET PO SCH ×2 (08:02→20:12)
[2020-02-07] MEDS: DONEPEZIL 5 MG TABLET PO SCH (08:12)
[2020-02-07] MEDS ORDERED: POTASSIUM CHLORIDE 10 MEQ TABLET.ER PO ONE (08:30)
[2020-02-07] MEDS: DOCUSATE 100 MG CAPSULE PO SCH (09:18)
[2020-02-07 15:55] VITALS: BP 135/56
[2020-02-07] MEDS: MAGNESIUM HYDROXIDE 8%, 30ML UDC PO SCH (16:18)
[2020-02-07 19:45] VITALS: BP 143/63
[2020-02-07] MEDS: MELATONIN 5 MG TABLET PO SCH (20:11)
[2020-02-07] MEDS: ATORVASTATIN 10 MG TABLET PO SCH (20:12)
[2020-02-08] VITALS (8 sets, daily range): BP systolic 120–155; BP diastolic 47–65
[2020-02-08 04:46] LABS: MEAN CORPUSCULAR HEMOGLOBIN 28.5 pg (27.0-34.8); MEAN CORPUSCULAR HGB CONC 32.3 g/dL (32.4-35.8); MEAN CORPUSCULAR VOLUME 88.1 fL (80-100); PLATELET COUNT 482 x10^3/uL (130-400); RED BLOOD COUNT 2.59 x10^6/uL (3.82-5.3); RED CELL DISTRIBUTION WIDTH 16.8 % (9.6-15.2)
[2020-02-08 04:47] LABS: ALANINE AMINOTRANSFERASE 18 U/L (12-78); ALBUMIN 2.7 g/dL (3.4-5.0); ANION GAP 7 mmol/L (5-15); CHLORIDE 104 mmol/L (98-107)
[2020-02-08 04:52] LABS: ALKALINE PHOSPHATASE 89 U/L (45-117); BILIRUBIN,TOTAL 0.7 mg/dL (0.2-1.0); CREATININE 3.19 mg/dL (0.55-1.02); TOTAL PROTEIN 6.9 g/dL (6.4-8.2)
[2020-02-08] MEDS: PANTOPRAZOLE 40MG TABLET PO SCH ×2 (05:07→16:21)
[2020-02-08] MEDS: CARVEDILOL 25 MG TABLET PO SCH ×2 (05:07→18:42)
[2020-02-08 05:11] LABS: MD YES
[2020-02-08 05:12] LABS: ANISOCYTOSIS 1+; BASOS#(MANUAL) 0.12 x10^3/uL (0-0.1); BASOS% (MANUAL) 2 % (0-1); EOS#(MANUAL) 0.12 x10^3/uL (0.0-0.4); EOS% (MANUAL) 2 % (1-7); HYPOCHROMIA 1+; LYMPH#(MANUAL) 0.73 x10^3/uL (1-3.4); LYMPHS% (MANUAL) 12 % (22-44); MONOS#(MANUAL) 0.67 x10^3/uL (0.3-2.7); MONOS% (MANUAL) 11 % (2-9); MYELOCYTES# (MANUAL) 0.12 x10^3/uL (0-0); MYELOCYTES% (MANUAL) 2 % (0-0); REACTIVE LYMPHS # (MANUAL) 0.06 x10^3/uL (0-0); REACTIVE LYMPHS % (MANUAL) 1 % (0-0); SEG#(MANUAL) 4.27 x10^3/uL (1.8-6.8); SEGS% (MANUAL) 70 % (42-75)
[2020-02-08 05:13] LABS: POLYCHROMASIA 1+
[2020-02-08 05:14] LABS: <PLATELET ESTIMATE> INCREASED; <PLT MORPHOLOGY> NORMAL PLT MORPH
[2020-02-08] MEDS: PIPERACILLIN/TAZO/PMX 2.25GM 50 ML IVPB SCH ×3 (08:18→22:45)
[2020-02-08] MEDS: METOLAZONE 2.5 MG TABLET PO SCH (08:19)
[2020-02-08] MEDS: DOXAZOSIN 2MG TABLET PO SCH ×2 (08:21→20:39)
[2020-02-08] MEDS: ASPIRIN 81 MG TABLET EC PO SCH (08:21)
[2020-02-08] MEDS: DOCUSATE 100 MG CAPSULE PO SCH (08:21)
[2020-02-08] MEDS: GABAPENTIN 100 MG CAPSULE PO SCH ×3 (08:21→20:39)
[2020-02-08] MEDS: OXYcodone IR 5MG TABLET PO PRN ×2 (08:21→18:39)
[2020-02-08] MEDS: SERTRALINE 50MG TABLET PO SCH (08:22)
[2020-02-08] MEDS: ISOSORBIDE DINITRATE 10 MG TABLET PO SCH ×3 (08:22→20:39)
[2020-02-08] MEDS: AMLODIPINE 10 MG TAB PO SCH (08:22)
[2020-02-08] MEDS: MAGNESIUM HYDROXIDE 8%, 30ML UDC PO SCH (08:23)
[2020-02-08] MEDS: DONEPEZIL 5 MG TABLET PO SCH (08:23)
[2020-02-08] MEDS: ONDANSETRON 2MG/ML, 2ML IVPush PRN (08:25)
[2020-02-08] MEDS: ATORVASTATIN 10 MG TABLET PO SCH (20:39)
[2020-02-08] MEDS: MELATONIN 5 MG TABLET PO SCH (20:39)
[2020-02-09] MEDS: OXYcodone IR 5MG TABLET PO PRN (00:36)
[2020-02-09 01:33] VITALS: BP 137/60
[2020-02-09] MEDS: CARVEDILOL 25 MG TABLET PO SCH ×2 (05:44→19:21)
[2020-02-09] MEDS: PANTOPRAZOLE 40MG TABLET PO SCH ×2 (05:44→15:49)
[2020-02-09 06:17] LABS: ALBUMIN 2.7 g/dL (3.4-5.0); ANION GAP 8 mmol/L (5-15); CALCIUM 9.1 mg/dL (8.5-10.1); CHLORIDE 104 mmol/L (98-107)
[2020-02-09 06:21] LABS: ALANINE AMINOTRANSFERASE 22 U/L (12-78); ALKALINE PHOSPHATASE 88 U/L (45-117); BILIRUBIN,TOTAL 0.4 mg/dL (0.2-1.0); CREATININE 3.22 mg/dL (0.55-1.02)
[2020-02-09 06:28] LABS: BASOPHILS # (AUTO) 0.01 x10^3/uL (0-0.1); BASOPHILS % (AUTO) 0 % (0-1); EOSINOPHILS # (AUTO) 0.19 x10^3/uL (0-0.4); EOSINOPHILS % (AUTO) 3 % (1-7); LYMPHOCYTES # (AUTO) 0.71 x10^3/uL (1-3.4); LYMPHOCYTES % (AUTO) 11 % (22-44); MD NO; MEAN CORPUSCULAR HEMOGLOBIN 28.5 pg (27.0-34.8); MEAN CORPUSCULAR HGB CONC 32.1 g/dL (32.4-35.8); MEAN CORPUSCULAR VOLUME 88.9 fL (80-100); MEAN PLATELET VOLUME 6.2 fL (7.4-10.4); MONOCYTES # (AUTO) 0.63 x10^3/uL (0.2-0.8); MONOCYTES % (AUTO) 10 % (2-9); NEUTROPHILS # (AUTO) 4.85 x10^3/uL (1.8-6.8); NEUTROPHILS % (AUTO) 76 % (42-75); PLATELET COUNT 508 x10^3/uL (130-400); RED BLOOD COUNT 2.65 x10^6/uL (3.82-5.3); RED CELL DISTRIBUTION WIDTH 17.3 % (9.6-15.2)
[2020-02-09 07:12] VITALS: BP 134/56
[2020-02-09] MEDS: MAGNESIUM HYDROXIDE 8%, 30ML UDC PO SCH (08:01)
[2020-02-09] MEDS: METOLAZONE 2.5 MG TABLET PO SCH (08:01)
[2020-02-09] MEDS: PIPERACILLIN/TAZO/PMX 2.25GM 50 ML IVPB SCH ×3 (08:01→23:59)
[2020-02-09] MEDS: AMLODIPINE 10 MG TAB PO SCH (08:02)
[2020-02-09] MEDS: DONEPEZIL 5 MG TABLET PO SCH (08:02)
[2020-02-09] MEDS: SERTRALINE 50MG TABLET PO SCH (08:02)
[2020-02-09] MEDS: DOXAZOSIN 2MG TABLET PO SCH ×2 (08:02→20:50)
[2020-02-09] MEDS: ASPIRIN 81 MG TABLET EC PO SCH (08:02)
[2020-02-09] MEDS: GABAPENTIN 100 MG CAPSULE PO SCH ×3 (08:02→20:50)
[2020-02-09] MEDS: DOCUSATE 100 MG CAPSULE PO SCH (08:02)
[2020-02-09] MEDS: ISOSORBIDE DINITRATE 10 MG TABLET PO SCH ×3 (08:03→20:51)
[2020-02-09] MEDS: ONDANSETRON 2MG/ML, 2ML IVPush PRN ×3 (08:30→20:51)
[2020-02-09 12:12] VITALS: BP 130/59
[2020-02-09 16:00] VITALS: BP 134/56
[2020-02-09 17:20] VITALS: BP 147/65
--- NOTE | 2020-02-09 17:32 | NUR ---
Rec: return to previous living situation. Addendum: 02/09/20 at 1732 by Diana PRUETT Amended: Links added.
[2020-02-09 20:07] VITALS: BP 143/58
[2020-02-09] MEDS: MELATONIN 5 MG TABLET PO SCH (20:50)
[2020-02-09] MEDS: ATORVASTATIN 10 MG TABLET PO SCH (20:50)
[2020-02-10] VITALS: BP 140/62
[2020-02-10 01:33] VITALS: BP 136/55
[2020-02-10 05:26] LABS: CHLORIDE 103 mmol/L (98-107)
[2020-02-10 05:36] LABS: ALANINE AMINOTRANSFERASE 16 U/L (12-78); ALBUMIN 2.7 g/dL (3.4-5.0); ALKALINE PHOSPHATASE 94 U/L (45-117); ANION GAP 8 mmol/L (5-15); BILIRUBIN,TOTAL 0.4 mg/dL (0.2-1.0); CALCIUM 9.3 mg/dL (8.5-10.1); CREATININE 3.27 mg/dL (0.55-1.02)
[2020-02-10] MEDS: CARVEDILOL 25 MG TABLET PO SCH ×2 (05:38→17:23)
[2020-02-10] MEDS: PANTOPRAZOLE 40MG TABLET PO SCH ×2 (05:38→16:34)
[2020-02-10 06:55] VITALS: BP 139/68
[2020-02-10] MEDS ORDERED: METOLAZONE 5 MG TABLET ONE (08:25)
[2020-02-10] MEDS: PIPERACILLIN/TAZO/PMX 2.25GM 50 ML IVPB SCH ×2 (08:28→16:33)
[2020-02-10] MEDS: MAGNESIUM HYDROXIDE 8%, 30ML UDC PO SCH (08:29)
[2020-02-10] MEDS: AMLODIPINE 10 MG TAB PO SCH (08:29)
[2020-02-10] MEDS: GABAPENTIN 100 MG CAPSULE PO SCH ×3 (08:29→20:52)
[2020-02-10] MEDS: SERTRALINE 50MG TABLET PO SCH (08:29)
[2020-02-10] MEDS: ASPIRIN 81 MG TABLET EC PO SCH (08:29)
[2020-02-10] MEDS: ISOSORBIDE DINITRATE 10 MG TABLET PO SCH ×3 (08:29→20:53)
[2020-02-10] MEDS: DONEPEZIL 5 MG TABLET PO SCH (08:29)
[2020-02-10] MEDS: METOLAZONE 2.5 MG TABLET PO SCH (08:30)
[2020-02-10] MEDS: DOCUSATE 100 MG CAPSULE PO SCH (08:30)
[2020-02-10] MEDS: DOXAZOSIN 2MG TABLET PO SCH ×2 (08:42→20:52)
[2020-02-10] MEDS: ONDANSETRON 2MG/ML, 2ML IVPush PRN (09:33)
[2020-02-10] MEDS ORDERED: FUROSEMIDE 40 MG/4 ML IV ONE (10:00)
[2020-02-10 12:52] VITALS: BP 125/60
[2020-02-10] MEDS: OXYcodone IR 5MG TABLET PO PRN (16:50)
[2020-02-10 19:45] VITALS: BP 124/66
[2020-02-10] MEDS: MELATONIN 5 MG TABLET PO SCH (20:52)
[2020-02-10] MEDS: ATORVASTATIN 10 MG TABLET PO SCH (20:52)
[2020-02-11 00:18] VITALS: BP 124/61
[2020-02-11] MEDS: PIPERACILLIN/TAZO/PMX 2.25GM 50 ML IVPB SCH ×3 (00:18→16:22)
[2020-02-11] MEDS: OXYcodone IR 5MG TABLET PO PRN ×2 (03:39→16:27)
[2020-02-11 05:38] LABS: CHLORIDE 103 mmol/L (98-107)
[2020-02-11 05:43] LABS: ALBUMIN 2.7 g/dL (3.4-5.0); ANION GAP 8 mmol/L (5-15); CALCIUM 8.8 mg/dL (8.5-10.1); CREATININE 3.41 mg/dL (0.55-1.02)
[2020-02-11] MEDS: CARVEDILOL 25 MG TABLET PO SCH ×2 (06:06→18:05)
[2020-02-11] MEDS: PANTOPRAZOLE 40MG TABLET PO SCH ×2 (06:06→16:27)
[2020-02-11 07:14] VITALS: BP 127/58
[2020-02-11] MEDS ORDERED: METOLAZONE 5 MG TABLET ONE (08:28)
[2020-02-11] MEDS: GABAPENTIN 100 MG CAPSULE PO SCH ×3 (08:35→21:24)
[2020-02-11] MEDS: AMLODIPINE 10 MG TAB PO SCH (08:35)
[2020-02-11] MEDS: SERTRALINE 50MG TABLET PO SCH (08:35)
[2020-02-11] MEDS: ISOSORBIDE DINITRATE 10 MG TABLET PO SCH ×3 (08:36→21:24)
[2020-02-11] MEDS: DOXAZOSIN 2MG TABLET PO SCH ×2 (08:36→21:24)
[2020-02-11] MEDS: ASPIRIN 81 MG TABLET EC PO SCH (08:36)
[2020-02-11] MEDS: DONEPEZIL 5 MG TABLET PO SCH (08:36)
[2020-02-11] MEDS: DOCUSATE 100 MG CAPSULE PO SCH (08:40)
[2020-02-11] MEDS: METOLAZONE 2.5 MG TABLET PO SCH (08:40)
[2020-02-11] MEDS: MAGNESIUM HYDROXIDE 8%, 30ML UDC PO SCH (08:40)
[2020-02-11] MEDS ORDERED: FUROSEMIDE 40 MG/4 ML IV ONE (10:00)
[2020-02-11 12:23] VITALS: BP 128/62
[2020-02-11] MEDS: FERROUS SULFATE 325 MG TABLET PO SCH (16:22)
[2020-02-11 18:49] VITALS: BP 134/60
[2020-02-11] MEDS: MELATONIN 5 MG TABLET PO SCH (21:24)
[2020-02-11] MEDS: ATORVASTATIN 10 MG TABLET PO SCH (21:25)
[2020-02-12] MEDS: PIPERACILLIN/TAZO/PMX 2.25GM 50 ML IVPB SCH ×3 (00:05→16:30)
[2020-02-12 00:29] VITALS: BP 145/61
[2020-02-12 05:14] LABS: ALBUMIN 2.6 g/dL (3.4-5.0); ANION GAP 7 mmol/L (5-15); CALCIUM 8.7 mg/dL (8.5-10.1); CHLORIDE 104 mmol/L (98-107)
[2020-02-12 05:17] LABS: CREATININE 3.39 mg/dL (0.55-1.02)
[2020-02-12] MEDS: CARVEDILOL 25 MG TABLET PO SCH ×2 (06:09→17:25)
[2020-02-12] MEDS: PANTOPRAZOLE 40MG TABLET PO SCH ×2 (06:09→16:31)
[2020-02-12 06:28] VITALS: BP 128/56
[2020-02-12] MEDS ORDERED: METOLAZONE 5 MG TABLET ONE (08:09)
[2020-02-12] MEDS: DONEPEZIL 5 MG TABLET PO SCH (08:17)
[2020-02-12] MEDS: ASPIRIN 81 MG TABLET EC PO SCH (08:17)
[2020-02-12] MEDS: ISOSORBIDE DINITRATE 10 MG TABLET PO SCH ×3 (08:18→21:22)
[2020-02-12] MEDS: SERTRALINE 50MG TABLET PO SCH (08:18)
[2020-02-12] MEDS: METOLAZONE 2.5 MG TABLET PO SCH (08:18)
[2020-02-12] MEDS: GABAPENTIN 100 MG CAPSULE PO SCH ×3 (08:18→21:22)
[2020-02-12] MEDS: DOXAZOSIN 2MG TABLET PO SCH ×2 (08:18→21:22)
[2020-02-12] MEDS: AMLODIPINE 10 MG TAB PO SCH (08:18)
[2020-02-12] MEDS: OXYcodone IR 5MG TABLET PO PRN ×2 (08:18→21:21)
[2020-02-12] MEDS: DOCUSATE 100 MG CAPSULE PO SCH (08:18)
[2020-02-12 12:47] VITALS: BP 156/67
[2020-02-12] MEDS: FERROUS SULFATE 325 MG TABLET PO SCH (16:31)
[2020-02-12 19:23] VITALS: BP 143/70
[2020-02-12 21:16] VITALS: BP 153/60
[2020-02-12] MEDS: ATORVASTATIN 10 MG TABLET PO SCH (21:21)
[2020-02-12] MEDS: MELATONIN 5 MG TABLET PO SCH (21:22)
[2020-02-13] MEDS: PIPERACILLIN/TAZO/PMX 2.25GM 50 ML IVPB SCH ×3 (00:34→16:55)
[2020-02-13 01:35] VITALS: BP 126/52
[2020-02-13 05:41] LABS: ALBUMIN 2.8 g/dL (3.4-5.0); ANION GAP 7 mmol/L (5-15); CALCIUM 8.8 mg/dL (8.5-10.1); CHLORIDE 102 mmol/L (98-107)
[2020-02-13 05:43] VITALS: BP 143/64
[2020-02-13 05:44] LABS: ALANINE AMINOTRANSFERASE 19 U/L (12-78); ALKALINE PHOSPHATASE 100 U/L (45-117); BILIRUBIN,TOTAL 0.5 mg/dL (0.2-1.0); CREATININE 3.37 mg/dL (0.55-1.02); TOTAL PROTEIN 7.1 g/dL (6.4-8.2)
[2020-02-13] MEDS: PANTOPRAZOLE 40MG TABLET PO SCH ×2 (05:44→16:55)
[2020-02-13] MEDS: CARVEDILOL 25 MG TABLET PO SCH ×2 (05:44→16:55)
[2020-02-13 07:32] VITALS: BP 137/68
[2020-02-13] MEDS: SERTRALINE 50MG TABLET PO SCH (07:54)
[2020-02-13] MEDS: ASPIRIN 81 MG TABLET EC PO SCH (08:00)
[2020-02-13] MEDS: AMLODIPINE 10 MG TAB PO SCH (08:00)
[2020-02-13] MEDS: DOCUSATE 100 MG CAPSULE PO SCH (08:01)
[2020-02-13] MEDS: METOLAZONE 2.5 MG TABLET PO SCH (08:01)
[2020-02-13] MEDS: DONEPEZIL 5 MG TABLET PO SCH (08:01)
[2020-02-13] MEDS: GABAPENTIN 100 MG CAPSULE PO SCH ×3 (08:02→22:12)
[2020-02-13] MEDS: ISOSORBIDE DINITRATE 10 MG TABLET PO SCH ×3 (08:03→22:13)
[2020-02-13] MEDS: DOXAZOSIN 2MG TABLET PO SCH ×2 (08:04→22:14)
[2020-02-13] MEDS: HEPARIN 5,000 UNITS/ML, 1ML SQ SCH ×2 (08:51→16:56)
[2020-02-13 12:26] VITALS: BP 130/60
[2020-02-13] MEDS: FERROUS SULFATE 325 MG TABLET PO SCH (16:55)
[2020-02-13 20:20] VITALS: BP 145/62
[2020-02-13] MEDS: ATORVASTATIN 10 MG TABLET PO SCH (22:13)
[2020-02-13] MEDS: OXYcodone IR 5MG TABLET PO PRN (22:13)
[2020-02-13] MEDS: MELATONIN 5 MG TABLET PO SCH (22:14)
[2020-02-14] MEDS: PIPERACILLIN/TAZO/PMX 2.25GM 50 ML IVPB SCH ×2 (00:56→10:27)
[2020-02-14] MEDS: HEPARIN 5,000 UNITS/ML, 1ML SQ SCH ×3 (00:57→17:18)
[2020-02-14 01:09] VITALS: BP 141/62
[2020-02-14 05:33] LABS: CALCIUM 8.8 mg/dL (8.5-10.1); CHLORIDE 103 mmol/L (98-107)
[2020-02-14 05:37] LABS: ALANINE AMINOTRANSFERASE 19 U/L (12-78); ALBUMIN 2.6 g/dL (3.4-5.0); ALKALINE PHOSPHATASE 94 U/L (45-117); ANION GAP 7 mmol/L (5-15); BILIRUBIN,TOTAL 0.5 mg/dL (0.2-1.0); CREATININE 3.14 mg/dL (0.55-1.02); TOTAL PROTEIN 6.7 g/dL (6.4-8.2)
[2020-02-14 05:43] LABS: MEAN CORPUSCULAR HEMOGLOBIN 29.2 pg (27.0-34.8); MEAN CORPUSCULAR VOLUME 88.5 fL (80-100); PLATELET COUNT 396 x10^3/uL (130-400); RED BLOOD COUNT 2.51 x10^6/uL (3.82-5.3); RED CELL DISTRIBUTION WIDTH 17.5 % (9.6-15.2)
[2020-02-14 06:04] LABS: BASOPHILS # (AUTO) 0.01 x10^3/uL (0-0.1); BASOPHILS % (AUTO) 0 % (0-1); EOSINOPHILS # (AUTO) 0.17 x10^3/uL (0-0.4); EOSINOPHILS % (AUTO) 3 % (1-7); LYMPHOCYTES # (AUTO) 0.88 x10^3/uL (1-3.4); LYMPHOCYTES % (AUTO) 14 % (22-44); MD SCAN; MONOCYTES # (AUTO) 0.69 x10^3/uL (0.2-0.8); MONOCYTES % (AUTO) 11 % (2-9); NEUTROPHILS # (AUTO) 4.45 x10^3/uL (1.8-6.8); NEUTROPHILS % (AUTO) 72 % (42-75)
[2020-02-14] MEDS: CARVEDILOL 25 MG TABLET PO SCH ×2 (06:12→17:18)
[2020-02-14] MEDS: PANTOPRAZOLE 40MG TABLET PO SCH ×2 (06:12→17:18)
[2020-02-14 06:15] VITALS: BP 151/53
[2020-02-14] MEDS: DOCUSATE 100 MG CAPSULE PO SCH (09:42)
[2020-02-14] MEDS ORDERED: METOLAZONE 5 MG TABLET ONE (09:44)
[2020-02-14] MEDS: AMLODIPINE 10 MG TAB PO SCH (10:29)
[2020-02-14] MEDS: DONEPEZIL 5 MG TABLET PO SCH (10:29)
[2020-02-14] MEDS: DOXAZOSIN 2MG TABLET PO SCH ×2 (10:29→20:17)
[2020-02-14] MEDS: ISOSORBIDE DINITRATE 10 MG TABLET PO SCH ×3 (10:30→20:17)
[2020-02-14] MEDS: ASPIRIN 81 MG TABLET EC PO SCH (10:30)
[2020-02-14] MEDS: METOLAZONE 2.5 MG TABLET PO SCH (10:30)
[2020-02-14] MEDS: GABAPENTIN 100 MG CAPSULE PO SCH ×3 (10:30→20:30)
[2020-02-14] MEDS: SERTRALINE 50MG TABLET PO SCH (10:30)
[2020-02-14 12:47] VITALS: BP 131/57
[2020-02-14] MEDS: FERROUS SULFATE 325 MG TABLET PO SCH (17:18)
[2020-02-14] MEDS: ONDANSETRON 2MG/ML, 2ML IVPush PRN (17:24)
[2020-02-14 18:37] VITALS: BP 134/66
[2020-02-14] MEDS: OXYcodone IR 5MG TABLET PO PRN (20:16)
[2020-02-14] MEDS: ATORVASTATIN 10 MG TABLET PO SCH (20:17)
[2020-02-14] MEDS: MELATONIN 5 MG TABLET PO SCH (20:17)
[2020-02-14] MEDS ORDERED: SULFAMETH./TRIMETHOPRIM SS 400MG/80MG TABLET PO SCH (21:00)
[2020-02-15 00:15] VITALS: BP 138/62
[2020-02-15] MEDS: HEPARIN 5,000 UNITS/ML, 1ML SQ SCH ×2 (03:12→10:41)
[2020-02-15 06:33] VITALS: BP 162/61
[2020-02-15] MEDS: CARVEDILOL 25 MG TABLET PO SCH (06:34)
[2020-02-15] MEDS: PANTOPRAZOLE 40MG TABLET PO SCH ×2 (06:34→16:19)
[2020-02-15 07:24] VITALS: BP 142/52
[2020-02-15] MEDS ORDERED: METOLAZONE 5 MG TABLET ONE (07:52)
[2020-02-15] MEDS: AMLODIPINE 10 MG TAB PO SCH (07:59)
[2020-02-15] MEDS: GABAPENTIN 100 MG CAPSULE PO SCH ×2 (07:59→16:12)
[2020-02-15] MEDS: DOXAZOSIN 2MG TABLET PO SCH (08:00)
[2020-02-15] MEDS: DONEPEZIL 5 MG TABLET PO SCH (08:00)
[2020-02-15] MEDS: SERTRALINE 50MG TABLET PO SCH (08:00)
[2020-02-15] MEDS: DOCUSATE 100 MG CAPSULE PO SCH (08:00)
[2020-02-15] MEDS: METOLAZONE 2.5 MG TABLET PO SCH (08:00)
[2020-02-15] MEDS: ASPIRIN 81 MG TABLET EC PO SCH (08:00)
[2020-02-15] MEDS: ISOSORBIDE DINITRATE 10 MG TABLET PO SCH ×2 (08:00→16:12)
[2020-02-15 12:11] VITALS: BP 134/60
[2020-02-15] MEDS: FERROUS SULFATE 325 MG TABLET PO SCH (16:12)
[2020-02-15] MEDS: OXYcodone IR 5MG TABLET PO PRN (16:20)
== END 2020-02-15 16:43 | disposition home health service (06) | DRG 682 ==
LOC: ED 00:55 → EDIP 03:18 → 4EST 05:03 → 3N 02-03 15:00 → 4EST 02-05 11:48
PROVIDERS: ADMIT Family Medicine; ATTEND Family Medicine
PROC: 0T9B70Z Drainage of Bladder with Drainage Device, Via Natural or Artificial Opening (ICD-10-PCS; principal; 2020-02-02)
DX: N17.0 Acute kidney failure with tubular necrosis (principal); J96.21 Acute and chronic respiratory failure with hypoxia; I50.43 Acute on chronic combined systolic (congestive) and diastolic (congestive) heart failure; E43 Unspecified severe protein-calorie malnutrition; G93.41 Metabolic encephalopathy; E87.1 Hypo-osmolality and hyponatremia; E87.0 Hyperosmolality and hypernatremia; N30.00 Acute cystitis without hematuria; I13.2 Hypertensive heart and chronic kidney disease with heart failure and with stage 5 chronic kidney disease, or end stage renal disease; B96.5 Pseudomonas (aeruginosa) (mallei) (pseudomallei) as the cause of diseases classified elsewhere; B96.1 Klebsiella pneumoniae [K. pneumoniae] as the cause of diseases classified elsewhere; E11.22 Type 2 diabetes mellitus with diabetic chronic kidney disease; D63.8 Anemia in other chronic diseases classified elsewhere; E86.9 Volume depletion, unspecified; E87.6 Hypokalemia; I05.0 Rheumatic mitral stenosis; I27.20 Pulmonary hypertension, unspecified; I25.2 Old myocardial infarction; N18.5 Chronic kidney disease, stage 5; K59.00 Constipation, unspecified; N25.0 Renal osteodystrophy; R62.7 Adult failure to thrive; Z66 Do not resuscitate; F41.9 Anxiety disorder, unspecified; M54.5 Low back pain; Z51.5 Encounter for palliative care; T50.2X5A Adverse effect of carbonic-anhydrase inhibitors, benzothiadiazides and other diuretics, initial encounter; Y92.89 Other specified places as the place of occurrence of the external cause; Z83.3 Family history of diabetes mellitus; Z68.24 Body mass index [BMI] 24.0-24.9, adult; Z91.013 Allergy to seafood; Z88.5 Allergy status to narcotic agent
CPT/HCPCS: 36415; 74176; 80048; 80053; 80069; 81001; 83605; 83735; 84100; 84145; 84484; 85025; 87040; 87077; 87086; 87186; 93005; 96374; 96375; G0378; J0696; J1644; J1940; J2405; J2543; J2270; J7030